=== PATIENT | male | born 1955 | race Caucasian/White ===

== ENCOUNTER → 2016-11-27 | Outpatient (CLI) | payer MEDICARE ==
[2016-11-27 12:05] LABS: ABSOLUTE BASOPHILS # (AUTO) 0.1 10^3/uL (0.0-0.2); ABSOLUTE EOSINOPHILS # (AUTO) 0.4 10^3/uL (0.0-0.6); ABSOLUTE LYMPHOCYTES (AUTO) 2.1 10^3/uL (0.5-4.7); ABSOLUTE MONOCYTES (AUTO) 0.7 10^3/uL (0.1-1.4); ABSOLUTE NEUT (AUTO) 7.2 10^3/uL (1.7-8.2); BASOPHILS % (AUTO) 0.6 % (0-2); EOSINOPHILS % (AUTO) 4.2 % (0-6); HEMATOCRIT 39.3 % (37.9-51.0); HEMOGLOBIN 12.5 g/dL (13.5-17.0); HGB HCT DIFFERENCE -1.8; LYMPHOCYTES % (AUTO) 20.2 % (13-45); MEAN CORPUSCULAR HEMOGLOBIN 28.7 pg (27.0-33.4); MEAN CORPUSCULAR HGB CONC 31.9 g/dL (32.0-36.0); MEAN CORPUSCULAR VOLUME 90 fl (80-97); RED BLOOD COUNT 4.37 10^6/uL (4.35-5.55); RED CELL DISTRIBUTION WIDTH 13.9 % (11.5-14.0); WHITE BLOOD COUNT 10.6 10^3/uL (4.0-10.5)
--- NOTE | 2016-11-27 12:12 | RADIOLOGY REPORT (SQ) ---
EXAM DESCRIPTION: FOOT RIGHT COMPLETE COMPLETED DATE/TIME: 11/27/2016 11:20 am REASON FOR STUDY: NON-PRS CHRONIC ULCER OTH PRT RIGHT FOOT W NECROSIS OF BONE E11.621 TYPE 2 DIABET ES MELLITUS WITH FOOT ULCER L97.514 NON-PRS CHRONIC ULCER OTH PRT RIGHT FOOT W NECROSIS COMPARISON: None. NUMBER OF VIEWS: Three views. TECHNIQUE: AP, lateral and oblique radiographic images acquired of the right foot. LIMITATIONS: None. FINDINGS: MINERALIZATION: Normal. BONES: There is bony defect in the distal 1st phalanx with the appearance of destruction of bone. Th e terminal tuft is from the more proximal portion of the distal phalanx. . JOINTS: No effusions. SOFT TISSUES: There is a soft tissue lesion in the great toe. OTHER: No other significant finding. IMPRESSION: Soft tissue lesion in the great toe with evidence of osteomyelitis. TECHNICAL DOCUMENTATION: JOB ID: [id number] [employer]- All Rights Reserved
[2016-11-27 12:34] LABS: ALANINE AMINOTRANSFERASE 58 U/L (21-72); ALBUMIN 4.1 g/dL (3.5-5.0); ALKALINE PHOSPHATASE 95 U/L (38-126); ANION GAP 15 (5-19); ASPARTATE AMINO TRANSFERASE 75 U/L (17-59); BILIRUBIN,DIRECT 0.4 mg/dL (0.0-0.4); BILIRUBIN,TOTAL 0.5 mg/dL (0.2-1.3); BLOOD UREA NITROGEN 27 mg/dL (7-20); C-REACTIVE PROTEIN 29.3 mg/L (<10.0); CARBON DIOXIDE 25 mmol/L (22-30); CHLORIDE 103 mmol/L (98-107); CREATININE RESULT 1.41 mg/dL (0.52-1.25); GLUCOSE 135 mg/dL (75-110); POTASSIUM 5.2 mmol/L (3.6-5.0); SODIUM 143.4 mmol/L (137-145); TOTAL PROTEIN 7.6 g/dL (6.3-8.2)
[2016-11-27 12:50] LABS: ERYTHROCYTE SEDIMENTATION RATE 84 mm/hr (0-20)
== END ==
LOC: WC 10:44
PROVIDERS: ATTEND Preventive Medicine Undersea and Hyperbaric Medicine
DX: E11.621 Type 2 diabetes mellitus with foot ulcer (principal); L97.514 Non-pressure chronic ulcer of other part of right foot with necrosis of bone
CPT/HCPCS: 36415; 80053; 83036; 85025; 85652; 86140

== ENCOUNTER → 2016-12-01 | Outpatient (CLI) | payer MEDICARE ==
--- NOTE | 2016-12-02 09:11 | XCELERA REPORT ---
[address] [address] Lower Extremity Arterial Evaluation Name: MARCOS JOSHI Age: 61 yrs Gender: Male : 1955 Patient Status: Outpatient Patient Location: Study Date: 12/01/2016 02:27 PM Procedure: A color flow and duplex scan of the lower extremity arteries was performed bilaterally with velocity and waveform anaylsis. Reason For Study: ULCER Ordering Physician: PHILLIP HARDY Performed By: Femi Zavala Measurements and Calculations Right Left PRECISION LENS GRINDER APPRENTICE PSV 150.2 138.3 cm/sec Prox PFA PSV -206.2 -96.8 cm/sec Dist SFA PSV -127.5 -124.3 cm/sec Dist Pop A PSV 132.7 110.3 cm/sec Dist GARRETT PSV 119.4 121.0 cm/sec Dist TRUCK SALES MANAGER PSV 166.0 138.3 cm/sec Moreno Pedis PSV 132.0 125.7 cm/sec Right Side Arterial Evaluation Normal velocity and triphasic waveforms noted from the Common Femoral artery to the infrageniculate vessels. 0 % stenosis noted. Ankle Brachial index was not obtainable, non compressible. Left Side Arterial Evaluation Normal velocity and triphasic waveforms noted from the Common Femoral artery to the infrageniculate vessels. 0 % stenosis noted. Ankle Brachial index was not obtainable, non compressible. Interpretation Summary No hemodynamically significant lesions in the bilateral lower extremities, on duplex imaging, at rest. Atherosclerosis suggested by the non compressible distal vessels. : PHILLIP HARDY > Jose Pope
== END ==
LOC: SP 13:47
PROVIDERS: ATTEND Preventive Medicine Undersea and Hyperbaric Medicine
DX: L97.514 Non-pressure chronic ulcer of other part of right foot with necrosis of bone (principal)
CPT/HCPCS: 93925

== ENCOUNTER → 2016-12-30 | Outpatient (CLI) | payer MEDICARE ==
--- NOTE | 2016-12-30 16:24 | RADIOLOGY REPORT (SQ) ---
EXAM DESCRIPTION: CHEST PA/LATERAL COMPLETED DATE/TIME: 12/30/2016 4:16 pm REASON FOR STUDY: ENCOUNTER FOR OTHER PREPROCEDURAL EXAMINATION COMPARISON: 05/28/2015 EXAM PARAMETERS: NUMBER OF VIEWS: two views TECHNIQUE: Digital Frontal and Lateral radiographic views of the chest acquired. RADIATION DOSE: NA LIMITATIONS: none FINDINGS: LUNGS AND PLEURA: There is opacification the left base stable from prior study. This is c onsistent with effusion and underlying chronic airspace disease. MEDIASTINUM AND HILAR STRUCTURES: No masses or contour abnormalities. HEART AND VASCULAR STRUCTURES: Heart normal size. No evidence for failure. BONES: No acute findings. HARDWARE: None in the chest. OTHER: No other significant finding. IMPRESSION: No interval change in the chest with chronic appearing changes in the left base. TECHNICAL DOCUMENTATION: JOB ID: [id number] [employer]- All Rights Reserved
== END ==
LOC: OD 15:50
PROVIDERS: ATTEND Preventive Medicine Undersea and Hyperbaric Medicine
DX: Z01.818 Encounter for other preprocedural examination (principal)
CPT/HCPCS: 71020

== ENCOUNTER → 2017-01-08 | Outpatient (CLI) | payer MEDICARE ==
--- NOTE | 2017-01-08 17:05 | RADIOLOGY REPORT (SQ) ---
EXAM DESCRIPTION: FOOT RIGHT COMPLETE COMPLETED DATE/TIME: 01/08/2017 4:56 pm REASON FOR STUDY: TYPE 2 DIABETES MELLITUS WITH FOOT ULCER E11.621 TYPE 2 DIABETES MELLITUS WITH FO OT ULCER COMPARISON: None. NUMBER OF VIEWS: Three views. TECHNIQUE: AP, lateral and oblique radiographic images acquired of the right foot. LIMITATIONS: None. FINDINGS: MINERALIZATION: Normal. BONES: No acute fracture or dislocation is seen. There are cortical erosions and lytic areas involvi ng the distal phalanx of the 1st digit suspicious for bony involvement by osteomyelitis. JOINTS: No effusions. SOFT TISSUES: Soft tissue swelling is identified at the level of the 1st digit. OTHER: No other significant finding. IMPRESSION: Findings suspicious for involvement of the distal phalanx of the 1st digit with osteomye litis. There is associated soft tissue swelling. Clinical correlation is recommended. Other findin gs as noted above TECHNICAL DOCUMENTATION: JOB ID: [id number] [employer]- All Rights Reserved
== END ==
LOC: OD 16:39
PROVIDERS: ATTEND Preventive Medicine Undersea and Hyperbaric Medicine
DX: E11.621 Type 2 diabetes mellitus with foot ulcer (principal); E11.69 Type 2 diabetes mellitus with other specified complication; M86.171 Other acute osteomyelitis, right ankle and foot

== ENCOUNTER → 2017-02-06 | Outpatient (CLI) | payer MEDICARE ==
--- NOTE | 2017-02-06 17:40 | RADIOLOGY REPORT (SQ) ---
EXAM DESCRIPTION: FOOT RIGHT COMPLETE COMPLETED DATE/TIME: 02/06/2017 3:12 pm REASON FOR STUDY: NON-PRS CHRONIC ULCER OTH PRT RIGHT FOOT W NECROSIS OF BONE COMPARISON: 01/08/2017 NUMBER OF VIEWS: Three views. TECHNIQUE: AP, lateral, and oblique radiographic images acquired of the right foot. LIMITATIONS: None. FINDINGS: MINERALIZATION: Normal. BONES: There is destruction of bone involving the distal phalanx of the great toe. There is not appe ar to be a significant interval change. JOINTS AND SOFT TISSUES: No swelling. No calcifications. No foreign bodies. OTHER: No other significant finding. IMPRESSION: Bone destruction involving the 1st distal phalanx, suggestive of osteomyelitis. TECHNICAL DOCUMENTATION: JOB ID: [id number] [employer]- All Rights Reserved
== END ==
LOC: OD 14:58
PROVIDERS: ATTEND Preventive Medicine Undersea and Hyperbaric Medicine
DX: E11.621 Type 2 diabetes mellitus with foot ulcer (principal); L97.514 Non-pressure chronic ulcer of other part of right foot with necrosis of bone

== ENCOUNTER → 2017-03-04 | Outpatient (CLI) | payer MEDICARE ==
--- NOTE | 2017-03-04 13:30 | RADIOLOGY REPORT (SQ) ---
EXAM DESCRIPTION: FOOT RIGHT COMPLETE COMPLETED DATE/TIME: 03/04/2017 12:54 pm REASON FOR STUDY: TYPE 2 DIABETES MELLITUS WITH FOOT ULCER E11.621 TYPE 2 DIABETES MELLITUS WITH FO OT ULCER COMPARISON: Right foot films 11/27/2016, 01/08/2017, 02/06/2017 NUMBER OF VIEWS: Three views. TECHNIQUE: AP, lateral and oblique radiographic images acquired of the right foot. LIMITATIONS: None. FINDINGS: Overall bone density is normal. Along the distal phalanx right great toe, there has been progressive increase in bone density since t he films 01/15/2019. On the current exam, there is periosteal new bone along the distal phalanx great toe, with minimal bony bridging callus at the fracture of the distal phalanx tuft. Stable resort jameson distal tuft 2nd toe. Remainder of the forefoot and toes is otherwise unremarkable . Small dorsal and plantar calcaneal spurs IMPRESSION: Improvement in appearance of the right great toe distal phalanx. There is now increase in bone density of the distal phalanx, periosteal new bone, and minimal bony bridging callus at the d istal phalanx tuft fracture. TECHNICAL DOCUMENTATION: JOB ID: [id number] [employer]- All Rights Reserved
== END ==
LOC: OD 12:29
PROVIDERS: ATTEND Nurse Practitioner Family
DX: E11.621 Type 2 diabetes mellitus with foot ulcer (principal)

== ENCOUNTER 2017-10-19 00:16 | Emergency (ER) | payer MEDICARE ==
[2017-10-19 00:51] LABS: ABSOLUTE EOSINOPHILS # (AUTO) 0.4 10^3/uL (0.0-0.6); ABSOLUTE LYMPHOCYTES (AUTO) 3.2 10^3/uL (0.5-4.7); ABSOLUTE MONOCYTES (AUTO) 0.9 10^3/uL (0.1-1.4); ABSOLUTE NEUT (AUTO) 6.2 10^3/uL (1.7-8.2); BASOPHILS % (AUTO) 0.4 % (0-2); EOSINOPHILS % (AUTO) 3.8 % (0-6); HEMATOCRIT 37.1 % (37.9-51.0); HEMOGLOBIN 12.3 g/dL (13.5-17.0); LYMPHOCYTES % (AUTO) 29.7 % (13-45); MEAN CORPUSCULAR HEMOGLOBIN 29.9 pg (27.0-33.4); MEAN CORPUSCULAR HGB CONC 33.3 g/dL (32.0-36.0); MEAN CORPUSCULAR VOLUME 90 fl (80-97); MONOCYTES % (AUTO) 8.5 % (3-13); PLATELET COUNT 331 10^3/uL (150-450); RED BLOOD COUNT 4.12 10^6/uL (4.35-5.55); RED CELL DISTRIBUTION WIDTH 14.5 % (11.5-14.0); SEGMENTED NEUTROPHILS % (AUTO) 57.6 % (42-78); TOTAL CELLS COUNTED % (AUTO) 100 %; WHITE BLOOD COUNT 10.7 10^3/uL (4.0-10.5)
--- NOTE | 2017-10-19 01:08 | ER Document Report ---
ED General - General TRAVEL OUTSIDE OF THE [place] IN LAST 30 DAYS: No <PAWAN CINTRON - Last Filed: 10/19/17 05:49> <BLAYNE PATINO - Last Filed: 10/19/17 10:45> <CARLYN SIMMS - Last Filed: 10/19/17 11:38> - General Chief Complaint: Low Blood Sugar Stated Complaint: L.OW BLOOD SUGAR Time Seen by Provider: 10/19/17 00:43 Notes: Patient is a 62-year-old male who presents with complaints of having poor control of rambling on in his conversation and also having difficulty ambulating and walking. He said symptoms for started about 3 days ago. Says typically he is very short this description thinks. He says for some reason he cannot control himself from rambling on and at times has a hard time being able to describe what he wants to say and just a few words. He denies any psychiatric history other than a history of some mild depression. No history of schizophrenia or bipolar angie. Patient also mentions that this time he has developed difficulty walking and ambulating and says that his gait is very unsteady. He has never had this problem before. He denies any pain. Denies any fevers. Paramedics initially thought maybe his blood sugar was low because his Accu-Chek was 68. They gave oral glucose. Blood sugar came up to over 100. Symptoms have remained the same. No other complaints at this time. ( PAWAN CINTRON) - Related Data Allergies/Adverse Reactions: Tetanus Vaccines and Toxoid [Tetanus] Allergy (Mild, Verified 12/07/12 12:16) rash,swelling Past Medical History - Social History Smoking Status: Unknown if Ever Smoked Frequency of alcohol use: None Drug Abuse: None Family History: CAD, DM Patient has suicidal ideation: No Patient has homicidal ideation: No - Past Medical History Cardiac Medical History: Reports: Hx Hypercholesterolemia, Hx Hypertension Denies: Hx Heart Attack Pulmonary Medical History: Denies: Hx Asthma Neurological Medical History: Denies: Hx Cerebrovascular Accident, Hx Seizures Endocrine Medical History: Reports: Hx Diabetes Mellitus Type 2 Renal/ Medical History: Denies: Hx Peritoneal Dialysis GI Medical History: Reports: Hx Gastroesophageal Reflux Disease. Denies: Hx Hepatitis, Hx Hiatal Hernia, Hx Ulcer Psychiatric Medical History: Reports: Hx Depression Infectious Medical History: Denies: Hx Hepatitis Past Surgical History: Reports: Hx Cardiac Surgery - stents 2014. Denies: Hx Open Heart Surgery, Hx Pacemaker <PAWAN CINTRON - Last Filed: 10/19/17 05:49> Review of Systems <PAWAN CINTRON - Last Filed: 10/19/17 05:49> <BLAYNE PATINO - Last Filed: 10/19/17 10:45> <CARLYN SIMMS - Last Filed: 10/19/17 11:38> - Review of Systems Notes: My Normal Review Basic REVIEW OF SYSTEMS: CONSTITUTIONAL : Denies fever, chills, or sweats. Denies recent illness. RESPIRATORY: Denies cough, cold, or chest congestion. Denies shortness of breath, difficulty breathing, or wheezing. Cardiac: No chest pain. GASTROINTESTINAL: Denies abdominal pain. Denies nausea, vomiting, or diarrhea. Denies constipation. Last BM: GENITOURINARY: Denies difficulty urinating, painful urination, burning, frequency, or blood in urine. MUSCULOSKELETAL: Denies neck or back pain or joint pain or swelling. SKIN: Denies rash or skin lesions. NEUROLOGICAL: Denies altered mental status or loss of consciousness. Denies headache. Denies weakness or paralysis or loss of use of either side. Difficulty ambulating.. Denies sensory or motor loss. PSYCHIATRIC: History of depression which she says is actually much improved from what it used to be. No history of schizophrenia or bipolar. ALL OTHER SYSTEMS REVIEWED AND NEGATIVE. (PAWAN CINTRON) Physical Exam <PAWAN CINTRON - Last Filed: 10/19/17 05:49> <BLAYNE PATINO - Last Filed: 10/19/17 10:45> <CARLYN SIMMS - Last Filed: 10/19/17 11:38> - Vital signs Vitals: Pulse Ox 93 10/19/17 00:23 - Notes Notes: General Appearance: Well nourished, alert, cooperative, no acute distress, no obvious discomfort. Vitals: reviewed, See vital signs table. Head: no swelling or tenderness to the head Eyes: PERRL, EOMI, Conjuctiva clear Mouth: No decreasd moisture Lungs: No wheezing, No rales, No rhonci, No accessory muscle use, good air exchange bilaterally. Heart: Normal rate, Regular rythm, No murmur, no rub Abdomen: Normal BS, soft, No rigidity, No abdominal tenderness, No guarding, no rebound, no abdominal masses, no organomegaly Extremities: strength 5/5 in all extremities, good pulses in all extremities, no swelling or tenderness in the extremities, no edema. Skin: warm, dry, appropriate color, no rash Neuro: speech clear, oriented x 3, normal affect, responds appropriately to questions. Patient does ramble on but does not say anything and appropriate. He has no slurring of speech. Cranial nerves II through XII are intact. Good strength in all 4 extremities. When I stand the patient walk his legs very shaky and his gait is staggered and shuffled. (PAWAN CINTRON) Course - Laboratory Result Diagrams: 10/19/17 00:32 10/19/17 00:32 <PAWAN CINTRON - Last Filed: 10/19/17 05:49> - Laboratory Result Diagrams: 10/19/17 00:32 10/19/17 00:32 <BLAYNE PATINO - Last Filed: 10/19/17 10:45> - Laboratory Result Diagrams: 10/19/17 00:32 10/19/17 00:32 <CARLYN SIMMS - Last Filed: 10/19/17 11:38> - Re-evaluation Re-evalutation: 10/19/17 04:09 Went back in room and spoke with the patient again. His gait is now normalized. He still having some flight of ideas. I was able to get a lot more information from the patient. I spoke to him for over 30 minutes. Patient says the symptoms are started Thursday. They started when he dog ran out of the house. [place] The dog ran out to the playground were some kids were playing. The kids asked him if he needed their help to get his dog back. When he did that a car pulled up and a 17-year-old pys-sijz-xgs out to the kids that the patient is a registered pedophile and that they should stay away from him. Patient became immediately very emotionally upset because patient has never been arrested and has no history of any type form of child abuse. He went to the 17-year-old male's house. There is a 17-year-old male said that he had seen his doctor before and pedal for website and would not take back what he said. Patient therefore called the deputy sheriff chief's department a deputy came. They be talked about the patient and 16- year-old male in proved to the 69-year-old male that the patient does not appear to follow and has no criminal record. The patient and the 69-year-old male was then supposed to go around the neighborhood and told us from neighbors that he was indeed wrong and that the patient is not appear to follow. It was dark by that time and therefore they scheduled to Thursday. On Thursday the xiejchx-gaba-znz male told the patient that he does not "give a fuck" and therefore did not go around and tell anybody about the mistake he had made in the false accusation have made. Since then patient says he has been very worried that everybody thinks now that he is a registered sex offender. Patient says he has been I am able to sleep and has been rambling and he has been not eating as much. Tonight his blood sugar went down to the 80s and therefore called the ambulance and then his blood sugar went down to the 60s before is given or glucose. Patient admits that this is because he has not been eating much. Patient is not suicidal homicidal. He says now understand what is going on. Patient is unsure if he wants to speak to psychiatry this morning. I will leave the patient alone and then reassessing. Patient has no focal neurologic deficits and I am not concerned for any form of stroke. ( PAWAN CINTRON) 10/19/17 11:37 Patient has been evaluated stable, he is in no distress, mental health has evaluated the patient as well and noted that he is appropriate for discharge After performing a Medical Screening Examination, I estimate there is LOW risk for any life threatening mental health issues. At this time the patient looks extremely well and has not attempted severe self harm. I have reevaluated this patient multiple times and no significant life threatening changes are noted. The patient and I have discussed the diagnosis and risks, and we agree with discharging home with close follow-up with the understanding that symptoms and presentations can change. We also discussed returning to the Emergency Department immediately if new or worsening symptoms occur. We have discussed the symptoms which are most concerning (hallucinations, thoughts or actions of self harm or harm to others) that necessitate immediate return. (CARLYN SIMMS) - Vital Signs Vital signs: Temp Pulse Resp BP Pulse Ox 98.4 F 17 128/78 H 96 10/19/17 00:36 10/19/17 08:01 10/19/17 08:00 10/19/17 07:01 - Laboratory Laboratory results interpreted by me: 10/19/17 10/19/17 10/19/17 00:32 00:32 03:12 WBC 10.7 H RBC 4.12 L Hgb 12.3 L Hct 37.1 L RDW 14.5 H Sodium 147.0 H BUN 37 H Creatinine 1.82 H Est GFR ( Amer) 46 L Est GFR (Non-Af Amer) 38 L Urine Ketones TRACE H Urine Urobilinogen 2.0 H - EKG Interpretation by Me Additional EKG results interpreted by me: 10/19/17 02:31 EKG is reviewed and interpreted by me. EKG shows sinus rhythm with rate of [address] segment elevation or depression. No ischemic T-wave inversions. OK interval, QRS duration, QTc intervals are within normal range. No old EKG available for comparison. (PAWAN CINTRON) Discharge <PAWAN CINTRON - Last Filed: 10/19/17 05:49> <BLAYNE PATINO - Last Filed: 10/19/17 10:45> <CARLYN SIMMS - Last Filed: 10/19/17 11:38> - Discharge Clinical Impression: Hypoglycemia, Situational anxiety Disposition: HOME, SELF-CARE Additional Instructions: Please try to make sure you eat. Please follow up with resources or appointments. Please return to the ER if you have any thoughts of suicide, low blood sugar, or feel unwell.Diabetes All diabetics should follow a diet designed to control the blood sugar. Overweight diabetics should exercise regularly and lose weight. If this is not sufficient to control the blood sugar, pills or insulin shots are necessary. Younger people who develop diabetes almost always require insulin daily. Home testing of blood sugars or urine sugar is required. Diabetic teaching is available to help you figure insulin doses and monitor the blood sugar. Call the physician if there is faintness, excess sleepiness, or very rapid breathing. If hypoglycemia (LOW blood sugar) develops, symptoms are shakiness, weakness, sweating, and confusion. In this case, you should eat or drink something with sugar at once. Follow up care: While in the Emergency Department you received a mental health assessment , based on the assessment it was determined the emotions/ symptoms you were experiencing were situational and not related to any psychiatric/ mental health diagnosis. However, if you are interested, local resources were provided for an outpatient therapists. Please follow up with your provider. Referrals: NEERAJ KUHN MD [Primary Care Provider] - Follow up as needed
[2017-10-19 01:16] LABS: ALANINE AMINOTRANSFERASE 45 U/L (21-72); ALBUMIN 4.4 g/dL (3.5-5.0); ALKALINE PHOSPHATASE 85 U/L (38-126); ANION GAP 18 (5-19); ASPARTATE AMINO TRANSFERASE 43 U/L (17-59); BILIRUBIN,DIRECT 0.4 mg/dL (0.0-0.4); BILIRUBIN,TOTAL 0.4 mg/dL (0.2-1.3); BLOOD UREA NITROGEN 37 mg/dL (7-20); CALCIUM 10.1 mg/dL (8.4-10.2); CARBON DIOXIDE 25 mmol/L (22-30); CHLORIDE 104 mmol/L (98-107); GLUCOSE 92 mg/dL (75-110); POTASSIUM 4.8 mmol/L (3.6-5.0); TOTAL PROTEIN 7.7 g/dL (6.3-8.2)
--- NOTE | 2017-10-19 02:15 | RADIOLOGY REPORT (SQ) ---
EXAM DESCRIPTION: CT HEAD WITHOUT CLINICAL HISTORY: 62 years Male, gait dysfunciton COMPARISON: 05.11.15 TECHNIQUE: No contrast. Coronal and sagittal reformat. This exam was performed according to our departmental dose-optimization program, which includes automated exposure control, adjustment of the mA and/or kV according to patient size and/or use of iterative reconstruction technique. FINDINGS: No hemorrhage or infarct. No mass, mass effect, or midline shift. Atherosclerosis. Brain and extra-axial structures appear otherwise intact. IMPRESSION: No acute findings.
--- NOTE | 2017-10-19 02:37 | RADIOLOGY REPORT (SQ) ---
EXAM DESCRIPTION: CHEST SINGLE VIEW CLINICAL HISTORY: 62 years Male, gait dysfunciton COMPARISON: 7..17. CT, 05/11/2015, report only. NUMBER OF VIEWS/TECHNIQUE: 1/AP FINDINGS: Adequate lung volume, moderate left basilar opacity-effusion, normal cardiac silhouette, and intact bony thorax. Stable. IMPRESSION: No significant change. Chronic left basilar opacity-effusion.
[2017-10-19 03:44] LABS: APPEARANCE,URINE CLEAR; BILIRUBIN,URINE NEGATIVE (NEGATIVE); COLOR,URINE YELLOW; GLUCOSE, URINE NEGATIVE (NEGATIVE); KETONES,URINE TRACE mg/dL (NEGATIVE); LEUKOCYTE ESTERASE,URINE NEGATIVE (NEGATIVE); NITRITE,URINE NEGATIVE (NEGATIVE); PROTEIN,URINE NEGATIVE (NEGATIVE); URINE SPECIFIC GRAVITY 1.014
[2017-10-19 04:09] LABS: URINE AMPHETAMINES SCREEN NEGATIVE; URINE BARBITURATES SCREEN NEGATIVE; URINE BENZODIAZEPINES SCREEN NEGATIVE; URINE COCAINE SCREEN NEGATIVE; URINE MARIJUANA (THC) SCREEN NEGATIVE; URINE METHADONE SCREEN NEGATIVE; URINE PHENCYCLIDINE SCREEN NEGATIVE
--- NOTE | 2017-10-19 10:01 | PSYCHOLOGICAL NOTE ---
Psych Note - Psych Note Psych Note: Reason for consult: Confusion " manic" Eval: 0945 Final Disposition 11:00 am Contact Permissions: Mari Kaur [phone] Patient is a 62 year old male. Patient reports he has type 2 diabetes, which he has had since he was 37 years old. Patient reports he skipped his insulin doses and felt that his blood sugar was really low. Patient reports he has not been good with managing his blood sugar. Patient reports that he is not eating well, drinking sodas and is not listening to what his physician recommends regarding nutrition. Patient reports he was feeling confused when his blood sugar was low so he called the ambulance. Patient reports he lives alone. Patient reports mental health has consent to speak with his sister Mari Kaur. Patient reports he has a good social support system in his neighborhood stating "old people live there". Patient reports he has friends that he regularly speaks with. Patient reports he feels that his rambling is due to his diabetes stating his blood sugar is low and he is confused he talks like that. Patient reports he is ready to go home. Patient reports he is going to try to not drink sodas and take care of his diabetes. Collateral information: Clinician attempted to contact patient's sister Mari for collateral information, she did not answer or return phone call. Diagnosis: None Impression/plan: Patient is psychiatrically cleared for discharge. Clinician observed patient's report of confusion and rambling were correlated with his health outcome, and not a psychiatric issue. Clinician observed patient is not displaying symptoms congruent with true angie. Clinician observed patient does not have history of mental health or outpatient treatment. At this time no other recommendations are made. Resources were offered but declined. Attending physician in agreement with plan. Consulted with Dr. Jara regarding the management and care of patient.
--- NOTE | 2017-10-19 10:08 | ER Document Report ---
Doctor's Note Notes: 10/19/17 10:07 As the rounding physician for our psychiatric patients, I have reviewed the chart, vitals, lab work. Patient has been examined and noted to be resting comfortably is alert oriented, I help ambulate him to the bathroom. I am awaiting mental health in put.
[2017-10-19 12:13] VITALS: BP 135/75
--- NOTE | 2017-10-19 13:00 | EKG REPORT ---
SEVERITY:- ABNORMAL ECG - SINUS RHYTHM CONSIDER ANTEROSEPTAL INFARCT : Confirmed by: Ny Mckeon 19-Oct-2017 12:59:27
== END 2017-10-19 12:13 | disposition home or self-care (01) ==
LOC: ER 00:16
DX: R26.2 Difficulty in walking, not elsewhere classified (principal); F41.8 Other specified anxiety disorders; E11.649 Type 2 diabetes mellitus with hypoglycemia without coma; E78.00 Pure hypercholesterolemia, unspecified; I10 Essential (primary) hypertension
CPT/HCPCS: 36415; 70450; 71045; 80053; 80307; 81001; 82962; 84484; 85025; 93005; 93010; 99285

== ENCOUNTER 2017-11-01 17:13 | Emergency (ER) | payer MEDICARE ==
[2017-11-01 17:59] LABS: VENOUS BLOOD BASE EXCESS -1.9 mmol/L; VENOUS BLOOD HCO3 23.6 mmol/L (20-32); VENOUS BLOOD PCO2 42.6 mmHg (35-63); VENOUS BLOOD PH 7.36 (7.30-7.42)
[2017-11-01 18:00] LABS: ABSOLUTE EOSINOPHILS # (AUTO) 0.3 10^3/uL (0.0-0.6); ABSOLUTE MONOCYTES (AUTO) 0.9 10^3/uL (0.1-1.4); ABSOLUTE NEUT (AUTO) 5.9 10^3/uL (1.7-8.2); BASOPHILS % (AUTO) 0.5 % (0-2); HEMATOCRIT 42.6 % (37.9-51.0); HEMOGLOBIN 14.2 g/dL (13.5-17.0); LYMPHOCYTES % (AUTO) 29.4 % (13-45); MEAN CORPUSCULAR HEMOGLOBIN 30.1 pg (27.0-33.4); MEAN CORPUSCULAR HGB CONC 33.3 g/dL (32.0-36.0); MEAN CORPUSCULAR VOLUME 90 fl (80-97); PLATELET COUNT 323 10^3/uL (150-450); RED BLOOD COUNT 4.72 10^6/uL (4.35-5.55); RED CELL DISTRIBUTION WIDTH 14.5 % (11.5-14.0); SEGMENTED NEUTROPHILS % (AUTO) 58.1 % (42-78); TOTAL CELLS COUNTED % (AUTO) 100 %; WHITE BLOOD COUNT 10.2 10^3/uL (4.0-10.5)
--- NOTE | 2017-11-01 18:01 | RADIOLOGY REPORT (SQ) ---
EXAM DESCRIPTION: CHEST SINGLE VIEW COMPLETED DATE/TIME: 11/01/2017 5:53 pm REASON FOR STUDY: ms change COMPARISON: 10/19/2017 EXAM PARAMETERS: NUMBER OF VIEWS: One view. TECHNIQUE: Single frontal radiographic view of the chest acquired. RADIATION DOSE: NA LIMITATIONS: None. FINDINGS: LUNGS AND PLEURA: Bibasilar effusions and left basilar opacity. Stable. No pneumothorax. MEDIASTINUM AND HILAR STRUCTURES: No masses. Contour normal. HEART AND VASCULAR STRUCTURES: Heart enlarged without overt failure. BONES: No acute findings. HARDWARE: None in the chest. OTHER: No other significant finding. IMPRESSION: Stable appearance. Bowel lateral effusions with left basilar opacity. Enlarged heart. TECHNICAL DOCUMENTATION: JOB ID: [id number] [employer]- All Rights Reserved Reading location - IP/workstation name: [email or web address]
[2017-11-01 18:16] LABS: ALANINE AMINOTRANSFERASE 31 U/L (21-72); ALBUMIN 4.7 g/dL (3.5-5.0); ALKALINE PHOSPHATASE 100 U/L (38-126); ANION GAP 17 (5-19); ASPARTATE AMINO TRANSFERASE 21 U/L (17-59); BILIRUBIN,DIRECT 0.4 mg/dL (0.0-0.4); BILIRUBIN,TOTAL 0.4 mg/dL (0.2-1.3); BLOOD UREA NITROGEN 47 mg/dL (7-20); CALCIUM 10.3 mg/dL (8.4-10.2); CARBON DIOXIDE 24 mmol/L (22-30); CHLORIDE 101 mmol/L (98-107); CREATINE KINASE 58 U/L (55-170); GLUCOSE 218 mg/dL (75-110); POTASSIUM 5.3 mmol/L (3.6-5.0); SODIUM 141.8 mmol/L (137-145); TOTAL PROTEIN 8.1 g/dL (6.3-8.2)
--- NOTE | 2017-11-01 18:16 | RADIOLOGY REPORT (SQ) ---
EXAM DESCRIPTION: CT HEAD WITHOUT COMPLETED DATE/TIME: 11/01/2017 6:00 pm REASON FOR STUDY: ms change COMPARISON: Noncontrast CT head 10/19/2017 TECHNIQUE: Axial images acquired through the brain without intravenous contrast. Images reviewed wi th bone, brain and subdural windows. Images stored on PACS. All CT scanners at this facility use dose modulation, iterative reconstruction, and/or weight based d osing when appropriate to reduce radiation dose to as low as reasonably achievable (ALARA). [facility]: Dose Right [facility]: CareDose [facility]: Dose Right [facility]: Teradose 4D [facility]: LOCK8 RADIATION DOSE: mGy. LIMITATIONS: None. FINDINGS: VENTRICLES: Normal size and contour. CEREBRUM: No mass effect. No hemorrhage. No midline shift. Normal herrera/white matter differentiatio n. No evidence for acute territorial infarction. CEREBELLUM: No mass effect. No hemorrhage. No alteration of density. No evidence for acute infarct ion. EXTRAAXIAL SPACES: No fluid collections. ORBITS AND GLOBE: Symmetrical contour of the globes. CALVARIUM: No depressed skull fracture. PARANASAL SINUSES: No air-fluid level. SOFT TISSUES: No hematoma. IMPRESSION: No acute intracranial hemorrhage or acute territorial infarct. EVIDENCE OF ACUTE STROKE: NO. COMMENT: Quality ID # [id number]: Final reports with documentation of one or more dose reduction techniques (e.g., Automated exposure control, adjustment of the mA and/or kV according to patient size, use of iterative reconstruction technique) TECHNICAL DOCUMENTATION: JOB ID: [id number]-[email or web address] 2010 [employer]- All Rights Reserved Reading location - IP/workstation name: [email or web address]
--- NOTE | 2017-11-01 18:22 | ER Document Report ---
ED General - General Chief Complaint: Altered Mental Status Stated Complaint: UNRESPONSIVE Time Seen by Provider: 11/01/17 17:29 Mode of Arrival: Ambulatory Information source: Patient, Relative - sister TRAVEL OUTSIDE OF THE [place] IN LAST 30 DAYS: No - HPI Patient complains to provider of: Mental status change Onset: Just prior to arrival Onset/Duration: Gradual Quality of pain: No pain Notes: Most of the history is by the patient's sister as the patient is not talking at this time. The sister states that the patient lives alone did pick him up for protestant this morning. She states that he was quiet at protestant which is not his usual state. She states that after protestant they did run a few errands and he basically just stopped talking. She denies that he had any weakness in his face slurred speech inability to move his arms or legs. She states that he just would not move. So she drove him here for evaluation. The patient did stand up to transfer into the bed. Was recently seen here for the same thing and was seen by psychiatry. It was determined at that point that it was probably due to his hypoglycemic event. Patient sister does state that the patient is undergoing a lot of stressful issues currently. - Related Data Allergies/Adverse Reactions: Tetanus Vaccines and Toxoid [Tetanus] Allergy (Mild, Verified 12/07/12 12:16) rash,swelling Past Medical History - General Information source: [facility] Records - Social History Smoking Status: Unknown if Ever Smoked Drug Abuse: None Lives with: Family Family History: CAD, DM Patient has suicidal ideation: No Patient has homicidal ideation: No - Past Medical History Cardiac Medical History: Reports: Hx Hypercholesterolemia, Hx Hypertension Denies: Hx Heart Attack Pulmonary Medical History: Reports: None Denies: Hx Asthma Neurological Medical History: Denies: Hx Cerebrovascular Accident, Hx Seizures Endocrine Medical History: Reports: Hx Diabetes Mellitus Type 2 Renal/ Medical History: Denies: Hx Peritoneal Dialysis Malignancy Medical History: Reports None GI Medical History: Reports: Hx Gastroesophageal Reflux Disease. Denies: Hx Hepatitis, Hx Hiatal Hernia, Hx Ulcer Psychiatric Medical History: Reports: Hx Depression Infectious Medical History: Denies: Hx Hepatitis Past Surgical History: Reports: Hx Cardiac Surgery - stents 2013. Denies: Hx Open Heart Surgery, Hx Pacemaker Review of Systems - Review of Systems -: Yes ROS unobtainable due to patient's medical condition Physical Exam - Vital signs Vitals: Resp Pulse Ox 20 99 05/13/18 17:29 11/01/17 17:29 - Notes Notes: PHYSICAL EXAMINATION: GENERAL: Lying in bed his eyes closed in no apparent distress. HEAD: Atraumatic, normocephalic. EYES: Pupils equal round and reactive to light, extraocular movements intact, sclera anicteric, conjunctiva are normal. Warm voluntarily open his eyes sporadically but not with verbal command. ENT: Nares patent. Moist mucous membranes. NECK: Normal range of motion, supple without lymphadenopathy LUNGS: Breath sounds clear to auscultation bilaterally and equal. No wheezes rales or rhonchi. HEART: Regular rate and rhythm without murmurs ABDOMEN: Soft, nontender, nondistended abdomen. No guarding, no rebound. No masses appreciated. Musculoskeletal: Normal range of motion, no pitting or edema. No cyanosis. When you lift the patient's arms up and placed them over his head he holds it there so it does not fall into his face area. NEUROLOGICAL: Gross focal deficits. PSYCH: Unable to assess at this time SKIN: Warm, Dry, normal turgor, no rashes or lesions noted. Course - Re-evaluation Re-evalutation: 11/01/17 19:46 Go back in the room and talk to the patient again. His vital signs are stable. He will not open his eyes but he does nod when I talk to him. I did tell him that all his lab tests and diagnostic studies look fine will be have a psychiatrist see him. Patient did not when I told him that. I did again lift his arms over his head and he did not drop them he moves them casually to his side and put them down. Assist to be sent to the lab. Nurse is aware and she will cath the patient. - Vital Signs Vital signs: Temp Pulse Resp BP Pulse Ox 98.7 F 64 16 135/79 H 98 11/01/17 17:42 11/01/17 21:00 11/01/17 22:31 11/01/17 22:31 11/01/17 22:31 - Laboratory Result Diagrams: 11/01/17 17:35 11/01/17 17:35 Laboratory results interpreted by me: 11/01/17 11/01/17 11/01/17 17:35 17:35 20:04 RDW 14.5 H Potassium 5.3 H BUN 47 H Creatinine 2.04 H Est GFR ( Amer) 40 L Est GFR (Non-Af Amer) 33 L Glucose 218 H POC Glucose Calcium 10.3 H Urine Glucose (UA) 50 H Urine Urobilinogen 4.0 H 11/01/17 20:55 RDW Potassium BUN Creatinine Est GFR ( Amer) Est GFR (Non-Af Amer) Glucose POC Glucose 148 H Calcium Urine Glucose (UA) Urine Urobilinogen Discharge - Discharge Clinical Impression: Mild dehydration, Change in mental status Condition: Stable Disposition: PSYCH HOSP/UNIT Referrals: NEERAJ CHRISTIAN MD [Primary Care Provider] - Follow up as needed
[2017-11-01] MEDS ORDERED: NORMAL SALINE 1000 ML 1,000 ML IV ONE (19:05)
[2017-11-01 20:26] LABS: APPEARANCE,URINE SLIGHTLY-CLOUDY; BILIRUBIN,URINE NEGATIVE (NEGATIVE); COLOR,URINE YELLOW; GLUCOSE, URINE 50 mg/dL (NEGATIVE); KETONES,URINE NEGATIVE (NEGATIVE); LEUKOCYTE ESTERASE,URINE NEGATIVE (NEGATIVE); NITRITE,URINE NEGATIVE (NEGATIVE); PROTEIN,URINE NEGATIVE (NEGATIVE); URINE SPECIFIC GRAVITY 1.015
[2017-11-01 20:40] LABS: URINE AMPHETAMINES SCREEN NEGATIVE; URINE BARBITURATES SCREEN NEGATIVE; URINE BENZODIAZEPINES SCREEN NEGATIVE; URINE COCAINE SCREEN NEGATIVE; URINE MARIJUANA (THC) SCREEN NEGATIVE; URINE METHADONE SCREEN NEGATIVE; URINE PHENCYCLIDINE SCREEN NEGATIVE
--- NOTE | 2017-11-01 22:10 | EKG REPORT ---
SEVERITY:- BORDERLINE ECG - SINUS RHYTHM BORDERLINE RIGHT AXIS DEVIATION BORDERLINE T WAVE ABNORMALITIES : Confirmed by: Bo Saunders MD 01-Nov-2017 22:08:50
--- NOTE | 2017-11-02 09:23 | ER Document Report ---
Doctor's Note Notes: 11/02/17 09:22 This is a 62-year-old man with a history of diabetes, hypertension, chronic kidney disease, coronary artery disease (stents), depression. Patient was brought into the emergency room by sister for evaluation because of decreased interactiveness. The patient's sister did report that the patient has been under a lot of stress lately. Vital signs have been stable. Labs do show some chronic kidney disease which is been noted to have in the past. Patient is alert and conversant this morning. He has been evaluated by the psychology team. 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 He actually has been conversant and does not appear catatonic at this time. He does have psychiatric follow-up. 11/02/17 10:28 11/02/17 13:17
[2017-11-02 13:29] VITALS: BP 132/77
--- NOTE | 2017-11-03 16:53 | PSYCHOLOGICAL NOTE ---
Psych Note - Psych Note Psych Note: Reason for consult: Depression Contact Permissions: Clarissa Kaur [id number] Eval: [id number] Final Disposition: 10:00 am Patient is a 62-year-old male. Patient reports that his sister was worried about him because he was not talking after gnosticist. Patient reports that on a scale of 1 through 10 , with 10 being "things are better" he is currently at a 10 ; this solution focused scale was used to rate how he was feeling since he was discharged last week. Patient states that he is at a 10 because "I am happy with my life". Patient reports that he likes everything about where he lives, the people he associates with, and his Pomeranian named Magic. Patient reports "I can take care of myself". Patient reports that he wants to live but if anything that he needs help with is just making sure his cat is fed as his sister currently has his Pomeranian. Patient reports that he stayed at the hospital because his sister asked him to. Patient reports that his therapist is Shruti at the [facility] at [facility]. Patient reports he went to gnosticist with his other siblings and when they went to eat he just did not feel like talking. Patient reports his house is a mess because he has been "lazy". Patient reports he does not like to throw away things. Patient reports he is having trouble remembering things. When patient's sister Clarissa arrived clinician observed patient's sister was frustrated due to not wanting to be discharged because she feels he needs to go to an assisted living facility. Clinician observed patient told his sister he was willing to go to a facility and willing to stay at her house until he could go. Clinician observed patient was more forthcoming after going into his room several times and facilitating a conversation as to why he presents differently to his sister then to clinician. Patient reported "I do not know". Collateral Information: Patient's sister Clarissa Kaur ( present in room) Patient's sister reports she does not feel patient could be discharged because he is catatonic. Patient's sister reports that he was fine before going to gnosticist talking regularly but that after the sermon just would not talk to her. Patient's sister reports that she feels his depression is not being properly managed. Patient's sister reports that she wants him to go to an inpatient psych hospital or an assisted living facility somewhere where people can help him remember to shower and eat. Patient's sister reports she does not feel he has eaten in several days since he was discharged from the hospital on Thursday. Patient's sister reports that she is going to take patient home with her until she is able to get him into an assisted living facility because she does think that it is a possibility that he is lonely and just does not want to say it. Diagnosis: Per History ( patient report) 311 (F32.9) Unspecified Depressive Disorder Impression/Plan: Recommendation to rescind involuntary commitment due to patient not meeting criteria VA GS 122C. Patient denied HI/SI and is currently participating in assessment in an appropriate logical/linear/oriented way. Clinician observed patient is presenting differently to different staff members , patient's nurse contacted clinician and explained patient could not preform his ADL's ( showering) and needed assistance being directed to shower; patient' s nurse stated patient was giving one word responses "yes" or " no" however patient was able to further elaborate to clinician when he chose to. Clinician provided resources to patient and his sister, patient declined clinician making an appointment for a outpatient therapist. Patient explained he wanted to continue to see his primary care, clinician scheduled an appointment with his PCM for follow up. Mental health casework specialist coordinated with corporate planner to request them providing resources and information regarding getting him into an assisted living facility. Attending physician in agreement with disposition and plan. Consulted with Dr. Jara regarding the management and care of patient.
== END 2017-11-02 13:30 | disposition home or self-care (01) ==
LOC: ER 17:13
DX: E86.0 Dehydration (principal); F32.9 Major depressive disorder, single episode, unspecified; R41.82 Altered mental status, unspecified; E78.00 Pure hypercholesterolemia, unspecified; E11.22 Type 2 diabetes mellitus with diabetic chronic kidney disease; I12.9 Hypertensive chronic kidney disease with stage 1 through stage 4 chronic kidney disease, or unspecified chronic kidney disease; N18.9 Chronic kidney disease, unspecified
CPT/HCPCS: 93005; 99285; 96360; 51701; 36415; 82962; 82550; 83735; 85025; 80053; 81001; 84484; 80307; 82803; 83605; 71045; 70450; 93010; J7030

== ENCOUNTER 2017-12-06 13:03 | Inpatient (IN) | payer MEDICARE ==
[2017-12-06] MEDS: NORMAL SALINE 1000 ML 1,000 ML IV PRN ×2 (13:10→13:15)
--- NOTE | 2017-12-06 13:29 | ER Document Report ---
ED General - General Stated Complaint: SYNCOPE Time Seen by Provider: 12/06/17 13:26 Notes: Patient was brought in by EMS after he had a fall at a local store. Patient says he drove to the store and got out of his car and felt lightheaded and was witnessed to fall to the ground. He supposedly hit his head on the car, but the patient denies any pain or indications of hitting his head. His blood pressure was 53/42 at the scene when EMS arrived. Family witnessed the episode and there was no seizure activity. Patient is an insulin-dependent diabetic and his blood sugar has been running high for some time now. He vomited an orange colored emesis. Patient had a orange colored drink this morning. EMS reports that the patient has had several episodes like this before that they have responded to it home and found him to be hypotensive, but he has declined to come to the emergency department. Patient says the only thing new for him is pains in his legs, but he says he has had it for over a month and he thinks is due to his diabetes. He is an insulin-dependent diabetic. He received 750 mL of saline while in route here by EMS. Patient denies any chest pains. Denies abdominal pain. Denies any difficulty breathing or shortness of breath. Denies any UTI symptoms. Denies any fever. Patient has a history of high blood pressure, high cholesterol, GERD, and insulin-dependent diabetes. TRAVEL OUTSIDE OF THE [place] IN LAST 30 DAYS: No - Related Data Allergies/Adverse Reactions: Tetanus Vaccines and Toxoid [Tetanus] Allergy (Mild, Verified 12/07/12 12:16) rash,swelling Past Medical History - Social History Smoking Status: Unknown if Ever Smoked Family History: Reviewed & Not Pertinent, CAD, DM - Past Medical History Cardiac Medical History: Reports: Hx Hypercholesterolemia, Hx Hypertension Endocrine Medical History: Reports: Hx Diabetes Mellitus Type 1, Hx Diabetes Mellitus Type 2 GI Medical History: Reports: Hx Gastroesophageal Reflux Disease Psychiatric Medical History: Reports: Hx Depression Past Surgical History: Reports: Hx Cardiac Surgery - stents 2014 Review of Systems - Review of Systems Notes: REVIEW OF SYSTEMS: CONSTITUTIONAL : Denies fever. EENT: Denies eye, ear, nose or mouth or throat pain or other symptoms. CARDIOVASCULAR: Denies chest pain. RESPIRATORY: Denies cough, chest congestion, or shortness of breath. GASTROINTESTINAL: Denies abdominal pain or nausea, vomiting, or diarrhea. GENITOURINARY: Denies difficulty or painful urinating, urinary frequency, blood in urine. MUSCULOSKELETAL: Denies back or neck pain. Denies joint pain or swelling. SKIN: Denies rash or skin lesions. NEUROLOGICAL: See HPI. Patient says he had no LOC or altered mental status. Denies headache. Denies sensory loss or motor deficits. ALL OTHER SYSTEMS REVIEWED AND NEGATIVE. Physical Exam - Vital signs Vitals: Resp BP 25 H 65/40 L 12/06/17 13:09 12/06/17 13:09 Interpretation: Hypotensive - Notes Notes: PHYSICAL EXAMINATION: GENERAL: Well-appearing, in no acute distress. Blood pressure in the 60s systolic upon arrival. Blood pressure was in the 50s systolic at the scene. HEAD: Atraumatic, normocephalic. EYES: Pupils equal round and reactive to light, extraocular movements intact. ENT: oropharynx clear without exudates. Moist mucous membranes. NECK: Normal range of motion, supple. LUNGS: Breath sounds clear and equal bilaterally. HEART: Regular rate and rhythm without murmurs. ABDOMEN: Soft, nontender. No guarding or rebound. No masses. No bruits heard. BACK: No tenderness throughout entire back. EXTREMITIES: Normal range of motion without pain. NEUROLOGICAL: Normal speech, unable to stand or walk. Normal sensory, motor, and reflex exams. Awake, alert, and oriented x3. Cranial nerves normal. PSYCH: Normal mood, normal affect. SKIN: Warm, dry, no rashes. Course - Re-evaluation Re-evalutation: 12/06/17 19:55 Patient received 3 L of saline here in the emergency department and his blood pressure gradually trended upward to the systolic of about 90. Insulin drip at 5 U/h was started in the emergency department. Contacted hospitalist who will admit the patient to ICU. - Vital Signs Vital signs: Temp Pulse Resp BP Pulse Ox 97.2 F 70 22 H 94/59 L 100 12/06/17 19:28 12/06/17 17:55 12/06/17 18:05 12/06/17 18:05 12/06/17 18:05 - Laboratory Result Diagrams: 12/06/17 12:50 12/06/17 17:30 Laboratory results interpreted by me: 12/06/17 12/06/17 12/06/17 12:50 12:50 14:10 RBC 4.24 L Hgb 12.7 L Sodium 129.1 L Chloride 82 L Anion Gap 21 H BUN 75 H Creatinine 4.00 H Est GFR ( Amer) 18 L Est GFR (Non-Af Amer) 15 L Glucose 843 H* Direct Bilirubin 0.5 H Creatine Kinase 54 L Urine Glucose (UA) >=500 H Critical Care Note - Critical Care Note Total time excluding time spent on procedures (mins): 45 Discharge - Discharge Clinical Impression: Near syncope, Hyperglycemia, Dehydration, Renal insufficiency Condition: Stable Disposition: ADMITTED INPATIENT Admitting Provider: Hospitalist Unit Admitted: ICU
[2017-12-06 13:48] LABS: ABSOLUTE EOSINOPHILS # (AUTO) 0.2 10^3/uL (0.0-0.6); ABSOLUTE LYMPHOCYTES (AUTO) 2.2 10^3/uL (0.5-4.7); ABSOLUTE MONOCYTES (AUTO) 0.8 10^3/uL (0.1-1.4); ABSOLUTE NEUT (AUTO) 6.3 10^3/uL (1.7-8.2); BASOPHILS % (AUTO) 0.4 % (0-2); EOSINOPHILS % (AUTO) 1.6 % (0-6); HEMATOCRIT 39.1 % (37.9-51.0); HEMOGLOBIN 12.7 g/dL (13.5-17.0); LYMPHOCYTES % (AUTO) 23.3 % (13-45); MEAN CORPUSCULAR HEMOGLOBIN 29.9 pg (27.0-33.4); MEAN CORPUSCULAR HGB CONC 32.4 g/dL (32.0-36.0); MEAN CORPUSCULAR VOLUME 92 fl (80-97); MONOCYTES % (AUTO) 8.2 % (3-13); PLATELET COUNT 315 10^3/uL (150-450); RED BLOOD COUNT 4.24 10^6/uL (4.35-5.55); RED CELL DISTRIBUTION WIDTH 13.7 % (11.5-14.0); SEGMENTED NEUTROPHILS % (AUTO) 66.5 % (42-78); TOTAL CELLS COUNTED % (AUTO) 100 %; WHITE BLOOD COUNT 9.4 10^3/uL (4.0-10.5)
[2017-12-06 13:51] LABS: INTERNATIONAL RATION (INR) 0.94; PROTHROMBIN TIME 13.1 SEC (11.4-15.4)
[2017-12-06 13:55] LABS: ALANINE AMINOTRANSFERASE 36 U/L (21-72); ALKALINE PHOSPHATASE 116 U/L (38-126); ASPARTATE AMINO TRANSFERASE 27 U/L (17-59); BILIRUBIN,DIRECT 0.5 mg/dL (0.0-0.4); BILIRUBIN,TOTAL 0.5 mg/dL (0.2-1.3); BLOOD UREA NITROGEN 75 mg/dL (7-20); CALCIUM 9.2 mg/dL (8.4-10.2); CREATINE KINASE 54 U/L (55-170); TOTAL PROTEIN 6.9 g/dL (6.3-8.2)
[2017-12-06 14:00] LABS: CARBON DIOXIDE 26 mmol/L (22-30); CHLORIDE 82 mmol/L (98-107); SODIUM 129.1 mmol/L (137-145)
[2017-12-06 14:05] LABS: CREATINE KINASE MB 1.11 ng/mL (<4.55); TROPONIN I 0.012 ng/mL
[2017-12-06 14:06] LABS: ANION GAP 21 (5-19)
[2017-12-06 14:09] LABS: GLUCOSE 843 mg/dL (75-110)
--- NOTE | 2017-12-06 14:15 | RADIOLOGY REPORT (SQ) ---
EXAM DESCRIPTION: CHEST SINGLE VIEW COMPLETED DATE/TIME: 12/06/2017 1:47 pm REASON FOR STUDY: Near syncope COMPARISON: Chest films 07/29/2014, 12/30/2016, 10/19/2017, 11/01/2017 EXAM PARAMETERS: NUMBER OF VIEWS: One view. TECHNIQUE: Single frontal radiographic view of the chest acquired. RADIATION DOSE: NA LIMITATIONS: [employer] portable chest film, obese patient FINDINGS: LUNGS AND PLEURA: Chronic blunting of the left lateral costophrenic sulcus is present, unc hanged from prior studies likely chronic scarring. Remainder of the lungs are grossly clear. No pleural effusion or pneumothorax. MEDIASTINUM AND HILAR STRUCTURES: No masses. Contour normal. HEART AND VASCULAR STRUCTURES: Stable moderate cardiomegaly BONES: No acute findings. HARDWARE: None in the chest. OTHER: No other significant finding. IMPRESSION: Chronic blunting left lateral costophrenic sulcus with chronic appearing consolidation i n the lateral left lung base. TECHNICAL DOCUMENTATION: JOB ID: [id number] [employer]- All Rights Reserved Reading location - IP/workstation name: [email or web address]
[2017-12-06] MEDS ORDERED: INSULIN REG, HUMAN 100 UNIT/ML 3 ML VIAL (PYX) ONE (14:16)
[2017-12-06] MEDS ORDERED: INSULIN REG, HUMAN 100 UNIT/ML 3 ML VIAL (PYX) IV ONE (14:25)
[2017-12-06 14:48] LABS: APPEARANCE,URINE SLIGHTLY-CLOUDY; BILIRUBIN,URINE NEGATIVE (NEGATIVE); COLOR,URINE YELLOW; GLUCOSE, URINE >=500 mg/dL (NEGATIVE); KETONES,URINE NEGATIVE (NEGATIVE); LEUKOCYTE ESTERASE,URINE NEGATIVE (NEGATIVE); NITRITE,URINE NEGATIVE (NEGATIVE); PROTEIN,URINE NEGATIVE (NEGATIVE); URINE SPECIFIC GRAVITY 1.018; UROBILINOGEN,URINE NEGATIVE mg/dL (<2.0)
[2017-12-06] MEDS ORDERED: NORMAL SALINE 1000 ML 1,000 ML IV ONE ×2 (15:20→16:29)
--- NOTE | 2017-12-06 15:51 | EKG REPORT ---
SEVERITY:- ABNORMAL ECG - SINUS RHYTHM WITH PACS FIRST DEGREE AV BLOCK LEFT POSTERIOR FASCICULAR BLOCK ABNRM R PROG, CONSIDER ASMI OR LEAD PLACEMENT NONSPECIFIC T ABNORMALITIES, LATERAL LEADS : Confirmed by: Bo Saunders MD 06-Dec-2017 15:50:11
[2017-12-06] MEDS ORDERED: DEXTROSE 50%-WATER 25 GM/50 ML DISP.SYRIN IV PRN ×2 (16:20)
[2017-12-06] MEDS ORDERED: DEXTROSE 40% GEL 15 GM TUBE PO PRN ×2 (16:20)
[2017-12-06] MEDS ORDERED: ACETAMINOPHEN 325 MG TABLET PO PRN (16:20)
[2017-12-06] MEDS ORDERED: ONDANSETRON 4 MG TAB.RAPDIS PO PRN (16:20)
[2017-12-06] MEDS ORDERED: NORMAL SALINE 1000 ML 1,000 ML IV PRN ×2 (16:20→18:22)
[2017-12-06] MEDS ORDERED: GLUCAGON,HUMAN RECOMB 1 MG INJ SUBCUT PRN (16:20)
--- NOTE | 2017-12-06 17:00 | RADIOLOGY REPORT (SQ) ---
EXAM DESCRIPTION: CT HEAD WITHOUT COMPLETED DATE/TIME: 12/06/2017 4:50 pm REASON FOR STUDY: head trauma COMPARISON: 11/01/2017. TECHNIQUE: Axial images acquired through the brain without intravenous contrast. Images reviewed wi th bone, brain and subdural windows. 11/01/2017. Images stored on PACS. All CT scanners at this facility use dose modulation, iterative reconstruction, and/or weight based d osing when appropriate to reduce radiation dose to as low as reasonably achievable (ALARA). [facility]: Dose Right [facility]: CareDose [facility]: Dose Right [facility]: Teradose 4D [facility]: Smart [employer] Software RADIATION DOSE: CT Rad equipment meets quality standard of care and radiation dose reduction techniq ues were employed. CTDIvol: 53.2 mGy. DLP: 1044 mGy-cm. mGy. LIMITATIONS: None. FINDINGS: VENTRICLES: Normal size and contour. CEREBRUM: No masses. No hemorrhage. No midline shift. No evidence for acute infarction. Normal gra y/white matter differentiation. No areas of low density in the white matter. CEREBELLUM: No masses. No hemorrhage. No alteration of density. No evidence for acute infarction. EXTRAAXIAL SPACES: No fluid collections. No masses. ORBITS AND GLOBE: No intra- or extraconal masses. Normal contour of globe without masses. CALVARIUM: No fracture. PARANASAL SINUSES: No fluid or mucosal thickening. SOFT TISSUES: No mass or hematoma. OTHER: No other significant finding. IMPRESSION: NORMAL BRAIN CT WITHOUT CONTRAST. EVIDENCE OF ACUTE STROKE: NO. COMMENT: Quality ID # [id number]: Final reports with documentation of one or more dose reduction techniques (e.g., Automated exposure control, adjustment of the mA and/or kV according to patient size, use of iterative reconstruction technique) TECHNICAL DOCUMENTATION: JOB ID: [id number] [employer]- All Rights Reserved Reading location - IP/workstation name: [email or web address]
--- NOTE | 2017-12-06 17:43 | PDOC H&P ---
History of Present Illness Admission Date/PCP: 12/06/17 15:29 NEERAJ CHRISTIAN MD Patient complains of: FALL History of Present Illness: MARCOS JOSHI is a 62 year old male who presents to the emergency department following a mechanical fall while getting out of his car. The patient reports he drove to the grocery store and when getting out of his vehicle he fell and hit his head on the car door. He denies loss of consciousness. Following the fall the patient had a witnessed episode of vomiting 1. A good uatsdin witnessed the event and called EMS. Upon their arrival to the scene, the patient was awake and talking but his BP was ~55/42. He was very pale and diaphoretic. BG reading 'high.' And route to [facility], the patient received 750mL IVF. PMH includes diabetes, unknown lung disease, CHF, CAD, stent x 1, depression Field Health Officer: Dr. Bernard Zimmer [facility] PMD: Dr. Adelso Casey Pulm: Dr. Tristan Hale Upon arrival to the ED, vital signs were BP 65/40 HR 72 RR 25 T 97.7 SPO2 93% on room air. CXR demonstrates cardiomegaly, chronic blunting of the left costophrenic angle (likely secondary to scarring ), no other pathology. EKG shows sinus arrhythmia, no evidence of acute infarction or ischemia. Troponin< 0.012. BG 843. Anion gap 21. BUN 75. Creatinine 4.0. Corrected sodium 141. Urine glucose>500. No ketones present. The patient was resuscitated with 4 L normal saline IVF. Insulin GTT initiated. Upon assessment, the patient is resting comfortably in bed on supplemental oxygen. He is alert and oriented 3 , states he remembers the entire event from earlier today, denies dizziness or LOC upon falling. The patient denies chest pain, shortness of breath, headache , dizziness, blurry vision, fever or chills. His only complaint is neuropathic pain in his bilateral lower extremities that has been getting increasingly worse over the last few months. Additionally, the patient endorses recent ill contact -states his neighbor was recently sick with ' some unknown illness.' When asked if the patient is compliant with his home medications, specifically his metformin and Lantus, the patient simply answers, "yup." However, he cannot tell me the dosage of his medications, nor does he know the schedule of his medications. Plan to admit to ICU under hospitalist service. Past Medical History Cardiac Medical History: Reports: Congestive Heart Failure, Hyperlipidema, Hypertension Denies: Myocardial Infarction Pulmonary Medical History: Denies: Asthma, Chronic Obstructive Pulmonary Disease (COPD) Neurological Medical History: Denies: Seizures Endocrine Medical History: Reports: Diabetes Mellitus Type 2 GI Medical History: Reports: Gastroesophageal Reflux Disease Denies: Hepatitis, Hiatal Hernia Psychiatric Medical History: Reports: Depression Hematology: Denies: Anemia, Sickle Cell Disease Past Surgical History Past Surgical History: Reports: Appendectomy Denies: Pacemaker Social History Information Source: Patient Lives with: Alone Smoking Status: Never Smoker Frequency of Alcohol Use: None Hx Recreational Drug Use: No Hx Prescription Drug Abuse: No - Advance Directive Resuscitation Status: Full Code Family History Family History: CAD, DM, Malignancy Parental Family History Reviewed: Yes Children Family History Reviewed: Yes Sibling(s) Family History Reviewed.: Yes Medication/Allergy Home Medications: Chlorthalidone [Chlorthalidone 25 mg Tablet] 25 mg PO DAILY 11/18/12 Hydralazine HCl 100 mg PO BID 11/18/12 Isosorbide Mononitrate [Imdur 60 mg Tablet.er] 60 mg PO DAILY 11/18/12 Labetalol HCl [Trandate] 300 mg PO BID 11/18/12 Lisinopril [Prinivil 40 mg Tablet] 40 mg PO DAILY 11/18/12 Metformin HCl [Glumetza] 1,000 mg PO BID 11/18/12 Simvastatin 40 mg PO DAILY 11/18/12 Insulin Glargine,Hum.rec.anlog [Lantus Insulin 100 Unit/mL] 50 unit SUBCUT BID 12/07/12 Albuterol Sulfate [Proair HFA] 1 - 2 puff IH Q4 PRN 05/12/15 Citalopram Hydrobromide [Celexa] 1 tab PO DAILY 05/12/15 Omeprazole 40 mg PO DAILY 05/12/15 Prasugrel Hydrochloride [Effient] 10 mg PO DAILY 05/12/15 Amox Tr/Potassium Clavulanate [Augmentin "500" Tablet] 1 tab PO Q8 #14 tablet 05/18/15 Docusate Sodium [Colace 100 mg Capsule] 100 mg PO BID #20 capsule 05/18/15 Fentanyl [Duragesic 12 Mcg/Hr Transdermal Patch] 1 each TD Q3DAYS PRN #3 patch.td72 05/18/15 Oxycodone HCl/Acetaminophen [Percocet 5-325 mg Tablet] 1 tab PO Q8HP PRN #25 tablet 05/18/15 Polyethylene Glycol 3350 [Miralax Powder 17 gm/Packet] 17 gm PO DAILY PRN #2 powd.pack 05/18/15 Allergies/Adverse Reactions: Tetanus Vaccines and Toxoid [Tetanus] Allergy (Mild, Verified 12/07/12 12:16) rash,swelling Review of Systems All systems: reviewed and no additional remarkable complaints except as stated Physical Exam Vital Signs: Temp Pulse Resp BP Pulse Ox 97.7 F 78 16 86/49 L 99 12/06/17 14:52 12/06/17 13:10 12/06/17 16:01 12/06/17 16:00 12/06/17 16:01 General appearance: PRESENT: no acute distress, obese Eye exam: PRESENT: conjunctiva pink, PERRLA Mouth exam: PRESENT: dry mucosa Teeth exam: PRESENT: poor dentation Neck exam: PRESENT: full ROM Respiratory exam: PRESENT: clear to auscultation nan, symmetrical, unlabored Cardiovascular exam: PRESENT: irregular rhythm - Sinus arrhythmia, +S1, +S2 Pulses: PRESENT: normal radial pulses, normal dorsalis pedis pul GI/Abdominal exam: PRESENT: normal bowel sounds, soft. ABSENT: tenderness Rectal exam: PRESENT: deferred Extremities exam: PRESENT: full ROM, other - VENOUS STASIS ULCERS AND SKIN DISCOLORATION. ABSENT: calf tenderness, joint swelling, pedal edema Musculoskeletal exam: PRESENT: ambulatory, full ROM Neurological exam: PRESENT: alert, awake, oriented to person, oriented to place , oriented to time, oriented to situation Psychiatric exam: PRESENT: unusual affect Skin exam: PRESENT: dry, intact, pallor, warm Additional comments: +FRUITY SMELLING BREATH Results Impressions: Chest X-Ray 12/06/17 13:29 IMPRESSION: Chronic blunting left lateral costophrenic sulcus with chronic appearing consolidation in the lateral left lung base. Status: Imported from PACS Assessment & Plan - Diagnosis (1) DKA (diabetic ketoacidoses) Qualifiers: Diabetes mellitus type: type 2 Diabetes mellitus complication detail: without coma Qualified Code(s): E11.10 - Type 2 diabetes mellitus with ketoacidosis without coma Is this a current diagnosis for this admission?: Yes Plan: Patient presents to the emergency department with a blood glucose of 843. Anion gap 21. Urine glucose > 500. No ketones present Patient states he is compliant with his home metformin and Lantus, although questionable given his significantly high blood sugar. Significant dehydration, resuscitated with 4 L IVF in ED Initiated insulin gtt, no bolus dose of insulin given in ED Monitor serial chemistries Check Hgb a1c in AM Continue maintenance NS IVF, change to d51/2 NS when BG less than 250 Continue Hooper catheter Strict I's and O's (2) Diabetes Qualifiers: Diabetes mellitus type: type 2 Diabetes mellitus assisted insulin use: with exterminator helper use Diabetes mellitus complication status: with ketoacidosis Is this a current diagnosis for this admission?: Yes Plan: Patient endorses history of type 2 diabetes. Patient states he is compliant with his metformin and Lantus Plan to check hemoglobin A1c with a.m. labs Remaining plan as above (3) ALVARO (acute kidney injury) Is this a current diagnosis for this admission?: Yes Plan: ALVARO secondary to dehydration stemming from intravascular volume depletion as a result of DKA. Initial BUN 75 creatinine 4.0 -baseline BUN 47 creatinine 2.04 Prerenal kidney injury diagnosis supported by BUN/creatinine ratio 20:1 Resuscitated with 4 L IVF in emergency department. Continue maintenance IVF 125 ML/hour (4) Hypotension Qualifiers: Hypotension type: hypotension due to hypovolemia Qualified Code(s): I95.89 - Other hypotension; E86.1 - Hypovolemia; E86.1 - Hypovolemia Is this a current diagnosis for this admission?: Yes Plan: HYPOtension secondary to HYPOvolemia stemming from intravascular volume loss related to DKA. Resuscitated with 4 L IVF in emergency department. Continue maintenance IVF MAP GOAL > 65 If patient unable to maintain adequate BP with IVF, consider vasopressors (5) Coronary artery disease Qualifiers: Coronary Disease-Associated Artery/Lesion type: unspecified vessel or lesion type [place] vs. transplanted heart: [place] heart Associated angina: without angina Qualified Code(s): I25.10 - Atherosclerotic heart disease of [place] coronary artery without angina pectoris Is this a current diagnosis for this admission?: Yes Plan: Patient endorses history of coronary artery disease. Aspirin and statin therapy (6) Hyponatremia Is this a current diagnosis for this admission?: No Plan: When corrected for HYPERglycemia, serum NA is 141 No need to treat HYPOnatremia (7) Neuropathy Is this a current diagnosis for this admission?: Yes Plan: Patient complains of neuropathic pain in bilateral lower extremities. States the pain is a constant burning sensation and has been getting increasingly worse over the last few months. Initiate low dose gabapentin, continue to re-assess for the need to increase dosing. - Time Time Spent: 30 to 50 Minutes Critical Time spent with patient: 15-24 minutes Medications reviewed and adjusted accordingly: Yes - Inpatient Certification Based on my medical assessment, after consideration of the patient's comorbidities, presenting symptoms, or acuity I expect that the services needed warrant INPATIENT care.: Yes I certify that my determination is in accordance with my understanding of Medicare's requirements for reasonable and necessary INPATIENT services [42 CFR 412.3e].: Yes Medical Necessity: Need Close Monitoring Due to Risk of Patient Decompensation, Risk of Complication if Not Cared For in Hospital - Plan Summary Plan Summary: Continue insulin drip and IV fluids for management of DKA. Strict I's and O's. Serial chemistries. Close monitoring for volume overload as patient has significant cardiomegaly
[2017-12-06 17:54] LABS: ANION GAP 17 (5-19); BLOOD UREA NITROGEN 67 mg/dL (7-20); CALCIUM 7.7 mg/dL (8.4-10.2); CARBON DIOXIDE 22 mmol/L (22-30); CHLORIDE 96 mmol/L (98-107); POTASSIUM 4.5 mmol/L (3.6-5.0); SODIUM 134.7 mmol/L (137-145)
[2017-12-06 18:05] LABS: GLUCOSE 573 mg/dL (75-110)
[2017-12-06] MEDS ORDERED: ATORVASTATIN CALCIUM 40 MG TABLET PO SCH (22:00)
[2017-12-07] MEDS ORDERED: INSULIN, REGULAR 100 UNIT/100 ML NORMAL SALINE IV PRN ×2 (00:21)
[2017-12-07] MEDS ORDERED: OXYCODONE-ACETAMINOPHEN 5-325 MG TABLET PO PRN (00:22)
[2017-12-07 00:53] LABS: ANION GAP 12 (5-19); BLOOD UREA NITROGEN 63 mg/dL (7-20); CALCIUM 8.1 mg/dL (8.4-10.2); CARBON DIOXIDE 26 mmol/L (22-30); CHLORIDE 102 mmol/L (98-107); GLUCOSE 227 mg/dL (75-110); POTASSIUM 3.7 mmol/L (3.6-5.0)
[2017-12-07] MEDS ORDERED: DEXTROSE 5%-1/2 NORMAL SALINE 1,000 ML IV PRN (05:25)
[2017-12-07 06:03] LABS: ABSOLUTE BASOPHILS # (AUTO) 0.1 10^3/uL (0.0-0.2); ABSOLUTE EOSINOPHILS # (AUTO) 0.3 10^3/uL (0.0-0.6); ABSOLUTE MONOCYTES (AUTO) 0.8 10^3/uL (0.1-1.4); ABSOLUTE NEUT (AUTO) 4.6 10^3/uL (1.7-8.2); BASOPHILS % (AUTO) 0.6 % (0-2); EOSINOPHILS % (AUTO) 3.6 % (0-6); HEMATOCRIT 33.5 % (37.9-51.0); HEMOGLOBIN 11.3 g/dL (13.5-17.0); LYMPHOCYTES % (AUTO) 34.2 % (13-45); MEAN CORPUSCULAR HGB CONC 33.6 g/dL (32.0-36.0); MEAN CORPUSCULAR VOLUME 89 fl (80-97); MONOCYTES % (AUTO) 9.6 % (3-13); PLATELET COUNT 263 10^3/uL (150-450); RED BLOOD COUNT 3.76 10^6/uL (4.35-5.55); RED CELL DISTRIBUTION WIDTH 13.5 % (11.5-14.0); TOTAL CELLS COUNTED % (AUTO) 100 %; WHITE BLOOD COUNT 8.8 10^3/uL (4.0-10.5)
[2017-12-07 06:31] LABS: ALANINE AMINOTRANSFERASE 35 U/L (21-72); ALBUMIN 3.2 g/dL (3.5-5.0); ALKALINE PHOSPHATASE 84 U/L (38-126); ANION GAP 11 (5-19); ASPARTATE AMINO TRANSFERASE 22 U/L (17-59); BILIRUBIN,DIRECT 0.4 mg/dL (0.0-0.4); BILIRUBIN,TOTAL 0.4 mg/dL (0.2-1.3); BLOOD UREA NITROGEN 56 mg/dL (7-20); CALCIUM 8.1 mg/dL (8.4-10.2); CARBON DIOXIDE 27 mmol/L (22-30); CHLORIDE 105 mmol/L (98-107); CHOLESTEROL 169.36 mg/dL (0-200); GLUCOSE 147 mg/dL (75-110); POTASSIUM 3.7 mmol/L (3.6-5.0); SODIUM 142.9 mmol/L (137-145); TOTAL PROTEIN 6.1 g/dL (6.3-8.2)
[2017-12-07 06:42] LABS: DIRECT LDL 44 mg/dL (<100)
[2017-12-07 06:45] LABS: TRIGLYCERIDES 606 mg/dL (<150)
[2017-12-07] MEDS ORDERED: ASPIRIN 81 MG TABLET, ENT COATED PO SCH (10:00)
[2017-12-07] MEDS ORDERED: ENOXAPARIN SODIUM INJ 30 MG/0.3 ML DISP.SYRIN SUBCUT SCH (10:00)
[2017-12-07 10:01] VITALS: BP 117/68
--- NOTE | 2017-12-07 22:26 | PDOC DISCHARGE SUMMARY ---
General - Admit/Disc Date/PCP Admission Date/Primary Care Provider: 12/06/17 15:29 NEERAJ CHRISTIAN MD Discharge Date: 12/07/17 - Discharge Diagnosis (1) DKA (diabetic ketoacidoses) Is this a current diagnosis for this admission?: Yes (2) ALVARO (acute kidney injury) Is this a current diagnosis for this admission?: Yes (3) Dehydration Is this a current diagnosis for this admission?: Yes (4) Coronary artery disease Is this a current diagnosis for this admission?: Yes (5) Diabetes Is this a current diagnosis for this admission?: Yes (6) Hypotension Is this a current diagnosis for this admission?: Yes (7) Hyponatremia Is this a current diagnosis for this admission?: No (8) Neuropathy Is this a current diagnosis for this admission?: Yes - Additional Information Resuscitation Status: Full Code Home Medications: Amlodipine Besylate [Norvasc 5 mg Tablet] 5 mg PO DAILY 12/07/17 Aspirin [Adult Low Dose Aspirin EC] 81 mg PO DAILY 12/07/17 Atorvastatin Calcium [Lipitor 20 mg Tablet] 20 mg PO DAILY 12/07/17 Chlorthalidone [Chlorthalidone 25 mg Tablet] 25 mg PO DAILY 12/07/17 Citalopram Hydrobromide [Celexa 40 mg Tablet] 40 mg PO DAILY 12/07/17 Hydralazine HCl 100 mg PO BID 12/07/17 Insulin Glargine,Hum.rec.anlog [Lantus Solostar] 50 units SQ BID 12/07/17 Isosorbide Mononitrate [Imdur 60 mg Tablet.er] 60 mg PO DAILY 12/07/17 Labetalol HCl [Trandate] 300 mg PO BID 12/07/17 Lisinopril [Zestril] 40 mg PO DAILY 12/07/17 Metformin HCl [Glucophage] 1,000 mg PO BID 12/07/17 Omeprazole 40 mg PO DAILY 12/07/17 History of Present Illness History of Present Illness: Per H&P by TEX Castillo: MARCOS JOSHI is a 62 year old male who presents to the emergency department following a mechanical fall while getting out of his car. The patient reports he drove to the grocery store and when getting out of his vehicle he fell and hit his head on the car door. He denies loss of consciousness. Following the fall the patient had a witnessed episode of vomiting 1. A good islam witnessed the event and called EMS. Upon their arrival to the scene, the patient was awake and talking but his BP was ~55/42. He was very pale and diaphoretic. BG reading 'high.' And route to [facility], the patient received 750mL IVF. PMH includes diabetes, unknown lung disease, CHF, CAD, stent x 1, depression Varnish Cooker: Dr. Bernard Zimmer [facility] PMD: Dr. Adelso Casey Pulm: Dr. Tristan Hale Upon arrival to the ED, vital signs were BP 65/40 HR 72 RR 25 T 97.7 SPO2 93% on room air. CXR demonstrates cardiomegaly, chronic blunting of the left costophrenic angle (likely secondary to scarring ), no other pathology. EKG shows sinus arrhythmia, no evidence of acute infarction or ischemia. Troponin< 0.012. BG 843. Anion gap 21. BUN 75. Creatinine 4.0. Corrected sodium 141. Urine glucose>500. No ketones present. The patient was resuscitated with 4 L normal saline IVF. Insulin GTT initiated. Upon assessment, the patient is resting comfortably in bed on supplemental oxygen. He is alert and oriented 3 , states he remembers the entire event from earlier today, denies dizziness or LOC upon falling. The patient denies chest pain, shortness of breath, headache , dizziness, blurry vision, fever or chills. His only complaint is neuropathic pain in his bilateral lower extremities that has been getting increasingly worse over the last few months. Additionally, the patient endorses recent ill contact -states his neighbor was recently sick with ' some unknown illness.' When asked if the patient is compliant with his home medications, specifically his metformin and Lantus, the patient simply answers, "yup." However, he cannot tell me the dosage of his medications, nor does he know the schedule of his medications. Plan to admit to ICU under hospitalist service. Hospital Course Hospital Course: The patient was admitted with a blood glucose of 843 and ALVARO with creatinine of 4.0 and BUN of 75. Anion gap 21. Urine glucose > 500. No ketones present The patient was admitted to the ICU. He received aggressive fluid resuscitation followed by maintenance IV fluids. His creatinine improved to 2.43 with BUN of 56 the following morning (baseline creatinine 2.04 and BUN 47). The patient was placed on an insulin drip and serial chemistries were monitored closely with overnight correction of glucose and electrolytes. Morning labs revealed a HbA1C of 12.2%. The patient's hypotension was determined to be secondary to hypovolemia; blood pressures improved following IVF. Pressor support was not required. Sodium corrected for glucose was found to be 141; no sodium correction was required. The patient expressed to nursing his intent to go home AGAINST MEDICAL ADVICE at approximately 11 am. Provider was notified and responded directly to patient 's bedside. Upon arrival, the patient was confrontational and would not be encouraged to remain inpatient while resuming outpatient insulin therapy or to provide additional IVF for ALVARO. The patient declined need for refills of outpatient medications. He was advised to follow up with his primary care provider within 1 week or sooner as needed. He was also encouraged to return to the Emergency Department for any worrisome symptoms. Physical Exam Vital Signs: Temp Pulse Resp BP Pulse Ox 97.8 F 70 15 117/68 95 12/07/17 04:45 12/06/17 17:55 12/07/17 10:00 12/07/17 09:05 12/07/17 10:00 Intake & Output 12/06/17 12/07/17 12/08/17 06:59 06:59 06:59 Intake Total 1468 Output Total 2150 2500 Balance -682 -2500 Weight 108.1 kg General appearance: PRESENT: no acute distress, well-developed, well-nourished Head exam: PRESENT: atraumatic, normocephalic Eye exam: PRESENT: conjunctiva pink, EOMI, PERRLA. ABSENT: scleral icterus Ear exam: PRESENT: normal external ear exam Mouth exam: PRESENT: moist, tongue midline Neck exam: PRESENT: full ROM Respiratory exam: PRESENT: symmetrical, unlabored. ABSENT: accessory muscle use Rectal exam: PRESENT: deferred Extremities exam: PRESENT: full ROM Musculoskeletal exam: PRESENT: ambulatory Neurological exam: PRESENT: alert, awake, oriented to person, oriented to place , oriented to time, oriented to situation, CN II-XII grossly intact. ABSENT: motor sensory deficit Psychiatric exam: PRESENT: agitated, appropriate affect. ABSENT: homicidal ideation, suicidal ideation Skin exam: PRESENT: dry, warm. ABSENT: cyanosis, rash Additional comments: Exam limited secondary to patient refusal. Results Laboratory Results: 12/07/17 05:53 12/07/17 05:53 12/06/17 12/07/17 12/07/17 17:30 00:14 05:53 WBC 8.8 RBC 3.76 L Hgb 11.3 L Hct 33.5 L MCV 89 MCH 30.0 MCHC 33.6 RDW 13.5 Plt Count 263 Seg Neutrophils % 52.0 Lymphocytes % 34.2 Monocytes % 9.6 Eosinophils % 3.6 Basophils % 0.6 Absolute Neutrophils 4.6 Absolute Lymphocytes 3.0 Absolute Monocytes 0.8 Absolute Eosinophils 0.3 Absolute Basophils 0.1 Sodium 134.7 L 140.0 Potassium 4.5 3.7 Chloride 96 L 102 Carbon Dioxide 22 26 Anion Gap 17 12 BUN 67 H 63 H Creatinine 3.48 H 2.80 H Est GFR ( Amer) 22 L 28 L Est GFR (Non-Af Amer) 18 L 23 L Glucose 573 H* 227 H Calcium 7.7 L 8.1 L Magnesium 2.2 2.4 H Total Bilirubin AST ALT Alkaline Phosphatase Total Protein Albumin Triglycerides Cholesterol LDL Cholesterol Direct VLDL Cholesterol HDL Cholesterol 12/07/17 05:53 WBC RBC Hgb Hct MCV MCH MCHC RDW Plt Count Seg Neutrophils % Lymphocytes % Monocytes % Eosinophils % Basophils % Absolute Neutrophils Absolute Lymphocytes Absolute Monocytes Absolute Eosinophils Absolute Basophils Sodium 142.9 Potassium 3.7 Chloride 105 Carbon Dioxide 27 Anion Gap 11 BUN 56 H Creatinine 2.43 H Est GFR ( Amer) 33 L Est GFR (Non-Af Amer) 27 L Glucose 147 H Calcium 8.1 L Magnesium 2.4 H Total Bilirubin 0.4 AST 22 ALT 35 Alkaline Phosphatase 84 Total Protein 6.1 L Albumin 3.2 L Triglycerides 606 H Cholesterol 169.36 LDL Cholesterol Direct 44 VLDL Cholesterol UNABLE TO CALCULATE HDL Cholesterol 23 L 12/06/17 17:30 Troponin I < 0.012 Impressions: Head CT 12/06/17 00:00 IMPRESSION: NORMAL BRAIN CT WITHOUT CONTRAST. EVIDENCE OF ACUTE STROKE: NO. Chest X-Ray 12/06/17 13:29 IMPRESSION: Chronic blunting left lateral costophrenic sulcus with chronic appearing consolidation in the lateral left lung base. Qualifiers - * PATIENT BEING DISCHARGED WITH ANY OF THE FOLLOWING DIAGNOSIS: No Plan Discharge Plan: Patient is advised to follow up with primary care provider as soon as possible. He is further advised to return to the Emergency Department for worsening symptoms (dizziness, weakness, near syncope/syncope, hyperglycemia, polyuria and polydipsia). Time Spent: Less than 30 Minutes
== END 2017-12-07 12:00 | disposition left against medical advice (07) | DRG 638 ==
LOC: ER 13:03 → EH 15:29 → ICU 17:54
PROVIDERS: ADMIT Internal Medicine; ATTEND Internal Medicine
DX: E11.10 Type 2 diabetes mellitus with ketoacidosis without coma (principal); N17.9 Acute kidney failure, unspecified; E87.1 Hypo-osmolality and hyponatremia; E86.0 Dehydration; I25.10 Atherosclerotic heart disease of native coronary artery without angina pectoris; E11.40 Type 2 diabetes mellitus with diabetic neuropathy, unspecified; F32.9 Major depressive disorder, single episode, unspecified; I11.0 Hypertensive heart disease with heart failure; I50.9 Heart failure, unspecified; E78.00 Pure hypercholesterolemia, unspecified; W17.89XA Other fall from one level to another, initial encounter; I95.89 Other hypotension; K21.9 Gastro-esophageal reflux disease without esophagitis; Z95.5 Presence of coronary angioplasty implant and graft; Z91.81 History of falling; Y92.481 Parking lot as the place of occurrence of the external cause; Z79.4 Long term (current) use of insulin; Z79.82 Long term (current) use of aspirin; Z79.899 Other long term (current) drug therapy; Z60.2 Problems related to living alone; Z88.7 Allergy status to serum and vaccine; Z82.49 Family history of ischemic heart disease and other diseases of the circulatory system; Z83.3 Family history of diabetes mellitus; Z80.9 Family history of malignant neoplasm, unspecified
CPT/HCPCS: 36415; 70450; 71045; 80048; 80053; 80061; 81001; 82550; 82553; 82962; 83036; 83735; 83880; 84484; 85025; 85610; 87086; 93005; 93010; 96360; 99291; J1650; J1815; J7030

== ENCOUNTER 2018-01-14 20:17 | Emergency (ER) | payer MEDICARE ==
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
[2018-01-14 20:53] LABS: ABSOLUTE EOSINOPHILS # (AUTO) 0.6 10^3/uL (0.0-0.6); ABSOLUTE LYMPHOCYTES (AUTO) 3.3 10^3/uL (0.5-4.7); ABSOLUTE MONOCYTES (AUTO) 1.1 10^3/uL (0.1-1.4); ABSOLUTE NEUT (AUTO) 5.5 10^3/uL (1.7-8.2); BASOPHILS % (AUTO) 0.3 % (0-2); EOSINOPHILS % (AUTO) 5.7 % (0-6); HEMATOCRIT 34.7 % (37.9-51.0); HEMOGLOBIN 11.6 g/dL (13.5-17.0); LYMPHOCYTES % (AUTO) 30.9 % (13-45); MEAN CORPUSCULAR HEMOGLOBIN 30.1 pg (27.0-33.4); MEAN CORPUSCULAR HGB CONC 33.3 g/dL (32.0-36.0); MEAN CORPUSCULAR VOLUME 90 fl (80-97); MONOCYTES % (AUTO) 10.2 % (3-13); PLATELET COUNT 343 10^3/uL (150-450); RED BLOOD COUNT 3.84 10^6/uL (4.35-5.55); SEGMENTED NEUTROPHILS % (AUTO) 52.9 % (42-78); TOTAL CELLS COUNTED % (AUTO) 100 %; WHITE BLOOD COUNT 10.5 10^3/uL (4.0-10.5)
[2018-01-14 21:13] LABS: ALANINE AMINOTRANSFERASE 44 U/L (21-72); ALBUMIN 4.4 g/dL (3.5-5.0); ALKALINE PHOSPHATASE 116 U/L (38-126); ANION GAP 16 (5-19); ASPARTATE AMINO TRANSFERASE 36 U/L (17-59); BILIRUBIN,DIRECT 0.3 mg/dL (0.0-0.4); BILIRUBIN,TOTAL 0.4 mg/dL (0.2-1.3); BLOOD UREA NITROGEN 55 mg/dL (7-20); CARBON DIOXIDE 23 mmol/L (22-30); CHLORIDE 105 mmol/L (98-107); GLUCOSE 102 mg/dL (75-110); POTASSIUM 5.4 mmol/L (3.6-5.0); SODIUM 143.8 mmol/L (137-145); TOTAL PROTEIN 7.8 g/dL (6.3-8.2)
[2018-01-14 21:15] LABS: ALCOHOL < 10 mg/dL (NONE DETECTED)
[2018-01-14 21:46] LABS: ACETAMINOPHEN < 10 ug/mL (10-30); SALICYLATE < 1.0 mg/dL (2.0-20.0)
[2018-01-14] MEDS ORDERED: LORAZEPAM INJ 2 MG/1 ML VIAL IV ONE (21:48)
[2018-01-14] MEDS ORDERED: CHLORPROMAZINE HCL INJ 25 MG/1 ML AMPULE IM SCH (22:45)
[2018-01-14] MEDS ORDERED: BENZTROPINE MESYLATE INJ 2 MG/2 ML AMPULE IM SCH (22:45)
--- NOTE | 2018-01-15 09:17 | EKG REPORT ---
SEVERITY:- BORDERLINE ECG - SINUS RHYTHM BORDERLINE T WAVE ABNORMALITIES : Confirmed by: Ellie Umaña MD 15-Jan-2018 09:16:30
[2018-01-15 12:17] VITALS: BP 89/49
== END 2018-01-15 12:17 | disposition home or self-care (01) ==
LOC: ER 20:17
DX: F60.9 Personality disorder, unspecified (principal); R41.82 Altered mental status, unspecified; I50.9 Heart failure, unspecified; E78.00 Pure hypercholesterolemia, unspecified; I11.0 Hypertensive heart disease with heart failure; E11.9 Type 2 diabetes mellitus without complications; Z88.0 Allergy status to penicillin; Z88.7 Allergy status to serum and vaccine
CPT/HCPCS: 93005; 99285; 96372; 96374; 36415; 82962; 80307 ×3; 85025; 80053; 93010; J0515; J3230; J2060

== ENCOUNTER 2018-01-18 07:56 | Inpatient (IN) | payer MEDICARE ==
--- NOTE | 2018-01-18 08:25 | ER Document Report ---
ED Psych Disorder / Suicide - General Chief Complaint: Psych Problem Stated Complaint: IVC Time Seen by Provider: 01/18/18 08:15 TRAVEL OUTSIDE OF THE [place] IN LAST 30 DAYS: No - HPI Patient complains to provider of: Bizarre behavior, Suicidal ideation Onset: This morning Notes: 62-year-old male with history of mental illness presents to the ER for suicidal thoughts and restorationism persecution. [facility] had evaluated the patient this morning and the patient was telling them that he is not going to be here tonight and was going to . He will not verbalize a specific plan the patient keeps quoting the Bible. The patient denies any visual auditory hallucinations. Denies homicidal ideation. Patient is very elusive about any kind of suicidal plan but states he has not been to be here tonight. The patient quickly redirects the question and begins some passage from the Bible. - Related Data Allergies/Adverse Reactions: Tetanus Vaccines and Toxoid [Tetanus] Allergy (Mild, Verified 01/18/18 07:57) rash,swelling Penicillins Allergy (Verified 01/18/18 07:57) Past Medical History - Social History Smoking Status: Unknown if Ever Smoked Family History: Reviewed & Not Pertinent, CAD, DM - Past Medical History Cardiac Medical History: Reports: Hx Congestive Heart Failure, Hx Hypercholesterolemia, Hx Hypertension Denies: Hx Heart Attack Pulmonary Medical History: Denies: Hx Asthma, Hx COPD Neurological Medical History: Denies: Hx Cerebrovascular Accident, Hx Seizures Endocrine Medical History: Reports: Hx Diabetes Mellitus Type 1, Hx Diabetes Mellitus Type 2 Renal/ Medical History: Denies: Hx Peritoneal Dialysis GI Medical History: Reports: Hx Gastroesophageal Reflux Disease. Denies: Hx Hepatitis, Hx Hiatal Hernia, Hx Ulcer Psychiatric Medical History: Reports: Hx Depression Infectious Medical History: Denies: Hx Hepatitis Past Surgical History: Reports: Hx Appendectomy, Hx Cardiac Surgery - stents 2013. Denies: Hx Open Heart Surgery, Hx Pacemaker Review of Systems - Review of Systems Constitutional: denies: Chills, Fever Cardiovascular: denies: Chest pain, Edema Respiratory: denies: Cough, Short of breath Gastrointestinal: denies: Abdominal pain, Nausea, Vomiting Musculoskeletal: denies: Back pain Neurological/Psychological: Suicidal ideation -: Yes All other systems reviewed and negative Physical Exam - Vital signs Vitals: Temp Pulse Resp BP Pulse Ox 99.4 F 76 20 114/80 95 01/18/18 08:01 01/18/18 08:01 01/18/18 08:01 01/18/18 08:01 01/18/18 08:01 - Notes Notes: GENERAL_APPEARANCE: well_nourished, alert, cooperative, very bizarre behavior. VITALS: reviewed, see vital signs table. HEAD: no_swelling\tenderness on the head. EYES: PERRL, EOMI, conjunctiva_clear. NOSE: no_nasal_discharge. MOUTH: (-)decreased moisture. THROAT: no_airway_obstruction. no_lymphadenopathy NECK: supple, no_neck_tenderness, (-)thyromegaly. BACK: no_back_tenderness. CHEST_WALL: no_chest_tenderness. LUNGS: no_wheezing, no_rales, no_rhonchi, (-)accessory muscle use, good air exchange bilateral. HEART: normal_rate, normal_rhythm, normal_S1, normal_S2, (-)S3, (-)S4, no_ murmur, no_rub. ABDOMEN: soft, no_abd_tenderness, (-)guarding, (-)rebound, no_organomegaly, no_ abd_masses. EXTREMITIES: good pulses in all_extremities, no_swelling\tenderness in the extremities, no_edema. SKIN: warm, dry, good_color, no_rash. Chronic skin changes MENTAL_STATUS: speech_clear, oriented_X_3, bizarre animated_affect, responds_ appropriately to questions. NEURO: Neg Motor or Sensory Deficits on exam, CN 2-12 intact, DTR 2+ symmetric x 4, No cerbellar signs PSYCH: Patient keeps saying he is not to be here tonight. He will not elaborate to exactly what he is going to do to himself. Patient is very tangential. His hard to keep him focused on this he keeps going back to the Bible. He denies homicidal ideation denies visual auditory hallucinations. Patient animated may be slightly manic also. Course - Vital Signs Vital signs: Temp Pulse Resp BP Pulse Ox 99.4 F 76 20 122/66 97 01/18/18 08:01 01/18/18 08:01 01/18/18 15:01 01/18/18 15:01 01/18/18 15:01 01/18/18 15:46 Patient elevated potassium and an elevated BUN. Patient's creatinine is not too far off baseline. Because of the patient's psychosis the last couple days he has not been eating or drinking. He likely has caused further dehydration and acute kidney injury which is resulting in hyperkalemia. Patient was given several liters of IV fluids and some bicarb. His BUN is come down but potassium has improved the patient is having no EKG changes. The patient's hyperkalemia will likely improve as he is appropriately hydrated since his creatinine is stable. I spoke with the hospitalist service who is in agreement due to the patient's extreme psychosis and psychiatric disorder he will need to be admitted to the intensive care unit with a sitter one-on-one care. - Laboratory Result Diagrams: 01/18/18 08:25 01/18/18 14:44 Laboratory results interpreted by me: 01/18/18 01/18/18 01/18/18 08:25 08:25 08:25 RBC 3.91 L Hgb 11.6 L Hct 35.3 L RDW 14.5 H Sodium Potassium 6.3 H* Chloride 108 H Carbon Dioxide 16 L BUN 73 H Creatinine 2.25 H Est GFR ( Amer) 36 L Est GFR (Non-Af Amer) 30 L Glucose 331 H Alkaline Phosphatase 138 H Creatine Kinase Total Protein Urine Glucose (UA) >=500 H Salicylates < 1.0 L Acetaminophen < 10 L 01/18/18 01/18/18 01/18/18 10:15 10:15 14:44 RBC Hgb Hct RDW Sodium 146.6 H Potassium 6.7 H* 6.4 H* Chloride 108 H Carbon Dioxide 17 L 20 L BUN 72 H 67 H Creatinine 2.29 H 2.01 H Est GFR ( Amer) 35 L 41 L Est GFR (Non-Af Amer) 29 L 34 L Glucose 309 H 223 H Alkaline Phosphatase 139 H Creatine Kinase 301 H Total Protein 8.5 H Urine Glucose (UA) Salicylates Acetaminophen - EKG Interpretation by Me EKG shows normal: Sinus rhythm Rate: Normal Rhythm: NSR When compared to previous EKG there are: No significant change - Transfer of Care Notes: 01/18/18 08:24 62-year-old male history of mental illness comes in complaining of indirect suicidality. He states he is not going to be here tonight but will not elaborate as to exactly why. The patient is constantly going back to the Bible and quoting scripture. Patient was having restorationism persecutions. Denies homicidal ideation denies visual auditory hallucinations does seem to have some delusional behavior he has no insight into his situation at this time and his judgment is clouded. We will medically screen him and refer him to psychology Dr. Jara. Critical Care Note - Critical Care Note Total time excluding time spent on procedures (mins): 32 Discharge - Discharge Clinical Impression: Dehydration, Acute kidney injury, Hyperkalemia Psychosis Qualifiers: Psychosis type: delusional disorder Qualified Code(s): F22 - Delusional disorders Condition: Fair Disposition: ADMITTED INPATIENT Admitting Provider: Hospitalist Unit Admitted: ICU Referrals: NEERAJ CHRISTIAN MD [Primary Care Provider] - Follow up as needed
[2018-01-18] MEDS ORDERED: HALOPERIDOL LACTATE INJ 5 MG/1 ML VIAL IM ONE (08:34)
[2018-01-18] MEDS ORDERED: LORAZEPAM INJ 2 MG/1 ML VIAL IM ONE (08:34)
[2018-01-18] MEDS ORDERED: CHLORPROMAZINE HCL INJ 25 MG/1 ML AMPULE IV ONE (08:58)
[2018-01-18] MEDS ORDERED: BENZTROPINE MESYLATE INJ 2 MG/2 ML AMPULE IM ONE (09:00)
[2018-01-18] MEDS ORDERED: FLUPHENAZINE DECANOATE INJ 125 MG/5 ML VIAL IM ONE (09:00)
[2018-01-18 09:31] LABS: ABSOLUTE EOSINOPHILS # (AUTO) 0.3 10^3/uL (0.0-0.6); ABSOLUTE MONOCYTES (AUTO) 0.8 10^3/uL (0.1-1.4); ABSOLUTE NEUT (AUTO) 6.2 10^3/uL (1.7-8.2); BASOPHILS % (AUTO) 0.4 % (0-2); EOSINOPHILS % (AUTO) 3.7 % (0-6); HEMATOCRIT 35.3 % (37.9-51.0); HEMOGLOBIN 11.6 g/dL (13.5-17.0); LYMPHOCYTES % (AUTO) 21.8 % (13-45); MEAN CORPUSCULAR HEMOGLOBIN 29.8 pg (27.0-33.4); MEAN CORPUSCULAR VOLUME 90 fl (80-97); MONOCYTES % (AUTO) 8.4 % (3-13); PLATELET COUNT 350 10^3/uL (150-450); RED BLOOD COUNT 3.91 10^6/uL (4.35-5.55); RED CELL DISTRIBUTION WIDTH 14.5 % (11.5-14.0); SEGMENTED NEUTROPHILS % (AUTO) 65.7 % (42-78); TOTAL CELLS COUNTED % (AUTO) 100 %; WHITE BLOOD COUNT 9.4 10^3/uL (4.0-10.5)
[2018-01-18 09:33] LABS: APPEARANCE,URINE CLEAR; BILIRUBIN,URINE NEGATIVE (NEGATIVE); COLOR,URINE YELLOW; GLUCOSE, URINE >=500 mg/dL (NEGATIVE); KETONES,URINE NEGATIVE (NEGATIVE); LEUKOCYTE ESTERASE,URINE NEGATIVE (NEGATIVE); NITRITE,URINE NEGATIVE (NEGATIVE); PROTEIN,URINE NEGATIVE (NEGATIVE); URINE SPECIFIC GRAVITY 1.011; UROBILINOGEN,URINE NEGATIVE mg/dL (<2.0)
[2018-01-18 09:46] LABS: URINE AMPHETAMINES SCREEN NEGATIVE; URINE BARBITURATES SCREEN NEGATIVE; URINE BENZODIAZEPINES SCREEN NEGATIVE; URINE COCAINE SCREEN NEGATIVE; URINE MARIJUANA (THC) SCREEN NEGATIVE; URINE METHADONE SCREEN NEGATIVE; URINE PHENCYCLIDINE SCREEN NEGATIVE
[2018-01-18 09:52] LABS: ALANINE AMINOTRANSFERASE 49 U/L (21-72); ALBUMIN 4.4 g/dL (3.5-5.0); ALKALINE PHOSPHATASE 138 U/L (38-126); ANION GAP 18 (5-19); ASPARTATE AMINO TRANSFERASE 31 U/L (17-59); BILIRUBIN,DIRECT 0.3 mg/dL (0.0-0.4); BILIRUBIN,TOTAL 0.3 mg/dL (0.2-1.3); BLOOD UREA NITROGEN 73 mg/dL (7-20); CARBON DIOXIDE 16 mmol/L (22-30); CHLORIDE 108 mmol/L (98-107); GLUCOSE 331 mg/dL (75-110); SODIUM 141.7 mmol/L (137-145)
[2018-01-18 09:53] LABS: ACETAMINOPHEN < 10 ug/mL (10-30); ALCOHOL < 10 mg/dL (NONE DETECTED); SALICYLATE < 1.0 mg/dL (2.0-20.0)
[2018-01-18 09:55] LABS: POTASSIUM 6.3 mmol/L (3.6-5.0)
[2018-01-18] MEDS ORDERED: NORMAL SALINE 1000 ML 2,000 ML IV ONE (10:10)
[2018-01-18 10:55] LABS: ALANINE AMINOTRANSFERASE 49 U/L (21-72); ALBUMIN 4.6 g/dL (3.5-5.0); ALKALINE PHOSPHATASE 139 U/L (38-126); ANION GAP 18 (5-19); ASPARTATE AMINO TRANSFERASE 35 U/L (17-59); BILIRUBIN,DIRECT 0.3 mg/dL (0.0-0.4); BILIRUBIN,TOTAL 0.3 mg/dL (0.2-1.3); BLOOD UREA NITROGEN 72 mg/dL (7-20); CALCIUM 10.1 mg/dL (8.4-10.2); CARBON DIOXIDE 17 mmol/L (22-30); CHLORIDE 107 mmol/L (98-107); GLUCOSE 309 mg/dL (75-110); SODIUM 142.1 mmol/L (137-145); TOTAL PROTEIN 8.5 g/dL (6.3-8.2)
[2018-01-18] MEDS ORDERED: HALOPERIDOL LACTATE INJ 5 MG/1 ML VIAL IV ONE (10:56)
[2018-01-18] MEDS ORDERED: LORAZEPAM INJ 2 MG/1 ML VIAL IV ONE (10:56)
[2018-01-18 11:02] LABS: POTASSIUM 6.7 mmol/L (3.6-5.0)
[2018-01-18] MEDS ORDERED: SODIUM BICARBONATE 8.4% INJ 50 MEQ/50 ML DISP.SYRIN IV ONE (12:02)
[2018-01-18 15:33] LABS: ANION GAP 19 (5-19); BLOOD UREA NITROGEN 67 mg/dL (7-20); CARBON DIOXIDE 20 mmol/L (22-30); CHLORIDE 108 mmol/L (98-107); GLUCOSE 223 mg/dL (75-110); SODIUM 146.6 mmol/L (137-145)
[2018-01-18 15:36] LABS: POTASSIUM 6.4 mmol/L (3.6-5.0)
[2018-01-18] MEDS ORDERED: CHLORPROMAZINE HCL INJ 25 MG/1 ML AMPULE IM PRN (16:41)
[2018-01-18] MEDS ORDERED: GLUCAGON,HUMAN RECOMB 1 MG INJ IM PRN (16:44)
[2018-01-18] MEDS ORDERED: NORMAL SALINE 1000 ML 1,000 ML IV PRN (16:44)
[2018-01-18] MEDS ORDERED: DEXTROSE 50%-WATER 25 GM/50 ML DISP.SYRIN IV PRN ×2 (16:44)
[2018-01-18] MEDS ORDERED: DEXTROSE 40% GEL 15 GM TUBE PO PRN ×2 (16:44)
--- NOTE | 2018-01-18 17:06 | PDOC H&P ---
History of Present Illness Admission Date/PCP: 01/18/18 16:11 NEERAJ CHRISTIAN MD History of Present Illness: MARCOS JOSHI is a 62 year old male who had previously been seen in the emergency department 4 days ago for altered mental status which turned out to be a psychiatric issue. He was given some medication recommendations after having been seen by behavioral health and was sent home. He apparently has been having some strange behaviors recently, dating back from the past 6 months , and apparently had an episode in islam the other day he had some very strange and agitated behaviors and apparently tried to swim in the [id number] [place]. Somehow today he want up on the phone with mobile crisis and told him that he was not going to be here tomorrow, that he was going to tonight, but he did not have any specific details as to how this would happen. He somehow wound up here in the hospital in the emergency department, and was extremely agitated at one point had to be in restraints. He was seen by behavioral health who made some medication recommendations and after several doses of antipsychotics he was able to relax. Some blood was able to be drawn him he was found to be dehydrated and hypokalemic. He got 2 L of IV fluids in the ER. He has been involuntarily committed. Past Medical History Cardiac Medical History: Reports: Congestive Heart Failure, Hyperlipidema, Hypertension Denies: Myocardial Infarction Pulmonary Medical History: Denies: Asthma, Chronic Obstructive Pulmonary Disease (COPD) Neurological Medical History: Denies: Seizures Endocrine Medical History: Reports: Diabetes Mellitus Type 1, Diabetes Mellitus Type 2 GI Medical History: Reports: Gastroesophageal Reflux Disease Denies: Hepatitis, Hiatal Hernia Psychiatric Medical History: Reports: Depression Hematology: Denies: Anemia, Sickle Cell Disease Past Surgical History Past Surgical History: Reports: Appendectomy Denies: Pacemaker Social History Information Source: [facility] Records - Unable to obtain any information on the patient because he is sedated Smoking Status: Unknown if Ever Smoked Frequency of Alcohol Use: None Hx Recreational Drug Use: No Hx Prescription Drug Abuse: No Family History Family History: Reviewed & Not Pertinent, CAD, DM Parental Family History Reviewed: No - Unable to obtain Children Family History Reviewed: No - Unable to obtain Sibling(s) Family History Reviewed.: No - Unable to obtain Medication/Allergy Home Medications: Amlodipine Besylate [Norvasc 5 mg Tablet] 5 mg PO DAILY 12/07/17 Aspirin [Adult Low Dose Aspirin EC] 81 mg PO DAILY 12/07/17 Atorvastatin Calcium [Lipitor 20 mg Tablet] 20 mg PO DAILY 12/07/17 Chlorthalidone [Chlorthalidone 25 mg Tablet] 25 mg PO DAILY 12/07/17 Citalopram Hydrobromide [Celexa 40 mg Tablet] 40 mg PO DAILY 12/07/17 Hydralazine HCl 100 mg PO BID 12/07/17 Insulin Glargine,Hum.rec.anlog [Lantus Solostar] 50 units SQ BID 12/07/17 Isosorbide Mononitrate [Imdur 60 mg Tablet.er] 60 mg PO DAILY 12/07/17 Labetalol HCl [Trandate] 300 mg PO BID 12/07/17 Lisinopril [Zestril] 40 mg PO DAILY 12/07/17 Metformin HCl [Glucophage] 1,000 mg PO BID 12/07/17 Omeprazole 40 mg PO DAILY 12/07/17 Allergies/Adverse Reactions: Tetanus Vaccines and Toxoid [Tetanus] Allergy (Mild, Verified 01/18/18 07:57) rash,swelling Penicillins Allergy (Verified 01/18/18 07:57) Review of Systems ROS unobtainable: Due to mental status - Patient is currently sedated, and prior to that was apparently psychotic Physical Exam Vital Signs: Temp Pulse Resp BP Pulse Ox 99.4 F 76 20 122/66 97 01/18/18 08:01 01/18/18 08:01 01/18/18 15:01 01/18/18 15:01 01/18/18 15:01 General appearance: PRESENT: disheveled, obese, other Head exam: PRESENT: atraumatic - Sedated when I saw him, normocephalic Eye exam: PRESENT: conjunctiva pink. ABSENT: periorbital swelling, scleral icterus Ear exam: PRESENT: normal external ear exam Mouth exam: PRESENT: moist, neck supple Teeth exam: PRESENT: poor dentation Neck exam: ABSENT: carotid bruit, JVD, lymphadenopathy, thyromegaly Respiratory exam: PRESENT: clear to auscultation nan, symmetrical, unlabored. ABSENT: rales, rhonchi, tachypnea, wheezes Cardiovascular exam: PRESENT: RRR, +S1, +S2. ABSENT: diastolic murmur, systolic murmur Pulses: PRESENT: normal carotid pulses, normal radial pulses Vascular exam: PRESENT: normal capillary refill GI/Abdominal exam: PRESENT: distended - I think that this is simply his body habitus, normal bowel sounds, soft. ABSENT: guarding, rebound, tenderness Extremities exam: ABSENT: clubbing, pedal edema Musculoskeletal exam: PRESENT: normal inspection. ABSENT: deformity Neurological exam: PRESENT: other - He was sedated so I could not obtain a satisfactory neurological examination Skin exam: PRESENT: dry, warm Results Laboratory Results: Reviewed Assessment & Plan - Diagnosis (1) Hyperkalemia Is this a current diagnosis for this admission?: Yes Plan: Possibly from dehydration. Unknown what his home medication pattern has been lately. holding most of his home medications and giving him IV fluids. Check periodic metabolic panels. Cardiac monitoring. No EKG changes were noted in the ER. (2) Dehydration Is this a current diagnosis for this admission?: Yes Plan: Creatinine seems to be at its usual level, but his BUN is substantially elevated. He had 2 L of IV fluids in the ER, and will continue hydrating him. (3) Psychosis Qualifiers: Psychosis type: delusional disorder Qualified Code(s): F22 - Delusional disorders Is this a current diagnosis for this admission?: Yes Plan: He has been involuntarily committed, the behavioral health services seeing him and have made medication recommendations which we have implemented. (4) Stage 3 chronic kidney disease due to diabetes mellitus Is this a current diagnosis for this admission?: Yes Plan: Stable and its usual level. (5) Insulin dependent diabetes mellitus Is this a current diagnosis for this admission?: Yes Plan: I am holding off on his Lantus right now because he has not been eating, but we do have him on a sliding scale. Will probably have to adjust this because he is on a rather large dose of Lantus at home. When he is starting to eat more we can start giving him his Lantus. - Time Time Spent: 50 to 70 Minutes - Inpatient Certification Medical Necessity: Need Close Monitoring Due to Risk of Patient Decompensation, Need For IV Fluids, Need For Continuous Telemetry Monitoring
[2018-01-18 17:42] LABS: ANION GAP 11 (5-19); BLOOD UREA NITROGEN 65 mg/dL (7-20); CALCIUM 9.3 mg/dL (8.4-10.2); CARBON DIOXIDE 22 mmol/L (22-30); CHLORIDE 112 mmol/L (98-107); GLUCOSE 223 mg/dL (75-110); SODIUM 144.5 mmol/L (137-145)
[2018-01-18 17:49] LABS: POTASSIUM 6.2 mmol/L (3.6-5.0)
--- NOTE | 2018-01-18 17:55 | EKG REPORT ---
SEVERITY:- OTHERWISE NORMAL ECG - SINUS RHYTHM RIGHT AXIS DEVIATION : Confirmed by: yN Mckeon 18-Jan-2018 17:54:52
[2018-01-18] MEDS ORDERED: (PENDING PHARMACY ID) (Labetalol Hcl [Trandate] 300 MG) PO SCH (18:00)
[2018-01-18] MEDS: INSULIN LISPRO 100 UNIT/ML 3 ML VIAL SUBCUT PRN (21:20)
[2018-01-18] MEDS: LABETALOL HCL 200 MG TABLET PO SCH (21:22)
[2018-01-18 21:24] LABS: ANION GAP 14 (5-19); BLOOD UREA NITROGEN 59 mg/dL (7-20); CALCIUM 9.6 mg/dL (8.4-10.2); CARBON DIOXIDE 22 mmol/L (22-30); CHLORIDE 113 mmol/L (98-107); GLUCOSE 223 mg/dL (75-110); POTASSIUM 5.6 mmol/L (3.6-5.0); SODIUM 148.9 mmol/L (137-145)
[2018-01-19] MEDS: INSULIN LISPRO 100 UNIT/ML 3 ML VIAL SUBCUT PRN ×5 (00:51→22:18)
[2018-01-19 01:21] LABS: ANION GAP 11 (5-19); BLOOD UREA NITROGEN 56 mg/dL (7-20); CALCIUM 8.8 mg/dL (8.4-10.2); CARBON DIOXIDE 22 mmol/L (22-30); CHLORIDE 115 mmol/L (98-107); GLUCOSE 245 mg/dL (75-110); POTASSIUM 5.4 mmol/L (3.6-5.0); SODIUM 147.8 mmol/L (137-145)
[2018-01-19] MEDS ORDERED: ACETAMINOPHEN 325 MG TABLET PO PRN (04:12)
[2018-01-19 05:48] LABS: ANION GAP 12 (5-19); BLOOD UREA NITROGEN 53 mg/dL (7-20); CALCIUM 8.7 mg/dL (8.4-10.2); CARBON DIOXIDE 19 mmol/L (22-30); CHLORIDE 116 mmol/L (98-107); GLUCOSE 190 mg/dL (75-110); POTASSIUM 5.3 mmol/L (3.6-5.0); SODIUM 147.2 mmol/L (137-145)
[2018-01-19] MEDS: NORMAL SALINE 1000 ML 1,000 ML IV PRN ×2 (09:05→22:20)
[2018-01-19] MEDS: ASPIRIN 81 MG TABLET, ENT COATED PO SCH (09:36)
[2018-01-19] MEDS: ENOXAPARIN SODIUM INJ 30 MG/0.3 ML DISP.SYRIN SUBCUT SCH (09:36)
[2018-01-19] MEDS: BENZTROPINE MESYLATE 1 MG TABLET PO SCH (09:36)
[2018-01-19] MEDS: LABETALOL HCL 200 MG TABLET PO SCH ×2 (09:37→22:19)
[2018-01-19 09:54] LABS: ANION GAP 15 (5-19); BLOOD UREA NITROGEN 44 mg/dL (7-20); CALCIUM 8.9 mg/dL (8.4-10.2); CARBON DIOXIDE 19 mmol/L (22-30); CHLORIDE 113 mmol/L (98-107); GLUCOSE 273 mg/dL (75-110); POTASSIUM 5.9 mmol/L (3.6-5.0); SODIUM 146.7 mmol/L (137-145)
[2018-01-19] MEDS ORDERED: SODIUM POLYSTYRENE SULFONATE 15 GM/60 ML PO PRN (12:23)
[2018-01-19] MEDS ORDERED: SODIUM POLYSTYRENE SULFONATE 15 GM/60 ML ONE (12:26)
--- NOTE | 2018-01-19 16:54 | PDOC PROGRESS REPORT ---
Subjective Subjective:: Mr. Sharif was admitted for acute psychosis, hyperkalemia and acute kidney injury. No acute event overnight. No recurrence of psychotic episode. Denies chest pain, shortness of breath. No fever or chills. On examination this morning, patient was then tangential. Denies suicidal ideation. Reason For Visit: HYPERKALEMIA,DEHYDRATION,SUICIDAL IDEATION, Physical Exam Vital Signs: Temp Pulse Resp BP Pulse Ox 98.9 F 65 17 159/78 H 100 01/19/18 16:00 01/19/18 16:00 01/19/18 16:00 01/19/18 16:00 01/19/18 16:00 Intake & Output 01/18/18 01/19/18 01/20/18 06:59 06:59 06:59 Intake Total 480 960 Output Total 1000 Balance -520 960 Weight 239 lb 13.807 oz General appearance: PRESENT: no acute distress Head exam: PRESENT: atraumatic Eye exam: PRESENT: conjunctiva pink, EOMI, PERRLA. ABSENT: scleral icterus Respiratory exam: PRESENT: clear to auscultation nan. ABSENT: rales, rhonchi, wheezes Cardiovascular exam: PRESENT: RRR. ABSENT: diastolic murmur, rubs, systolic murmur Pulses: PRESENT: normal dorsalis pedis pul GI/Abdominal exam: PRESENT: normal bowel sounds, soft. ABSENT: distended, guarding, mass, organolmegaly, rebound, tenderness Rectal exam: PRESENT: deferred Extremities exam: PRESENT: full ROM. ABSENT: calf tenderness, clubbing, pedal edema Neurological exam: PRESENT: alert, oriented to person, oriented to place, oriented to time Focused psych exam: PRESENT: flight of ideas, other - denies suicidal ideation, denies hallucinations Skin exam: PRESENT: dry, intact, warm. ABSENT: cyanosis, rash Results Laboratory Results: 01/19/18 09:23 01/18/18 01/18/18 01/19/18 17:12 21:00 01:04 Sodium 144.5 148.9 H 147.8 H Potassium 6.2 H* 5.6 H 5.4 H Chloride 112 H 113 H 115 H Carbon Dioxide 22 22 22 Anion Gap 11 14 11 BUN 65 H 59 H 56 H Creatinine 1.83 H 1.66 H 1.47 H Est GFR ( Amer) 45 L 51 L 59 L Est GFR (Non-Af Amer) 38 L 42 L 48 L Glucose 223 H 223 H 245 H Calcium 9.3 9.6 8.8 01/19/18 01/19/18 05:04 09:23 Sodium 147.2 H 146.7 H Potassium 5.3 H 5.9 H Chloride 116 H 113 H Carbon Dioxide 19 L 19 L Anion Gap 12 15 BUN 53 H 44 H Creatinine 1.40 H 1.40 H Est GFR ( Amer) > 60 > 60 Est GFR (Non-Af Amer) 51 L 51 L Glucose 190 H 273 H Calcium 8.7 8.9 Assessment & Plan - Diagnosis (1) Hyperkalemia Is this a current diagnosis for this admission?: Yes Plan: Hyperkalemia is likely secondary to his acute kidney injury. Patient was given a dose of bicarb yesterday and received 2 L of fluid bolus. Potassium this morning improved down to 5.3 from 6.2 on admission. Repeat potassium today later went up to 5.9. We will give 1 dose of Kayexalate. (2) Acute kidney injury Is this a current diagnosis for this admission?: Yes Plan: Patient's renal functions did significantly improve after a fluid replacement. Creatinine is improved down to 1.4. Patient is now tolerating oral intake well. His sodium and chloride has been trending up. Will decrease normal saline to 50 cc/hr. Continue to hold lisinopril for now. (3) Psychosis Qualifiers: Psychosis type: delusional disorder Qualified Code(s): F22 - Delusional disorders Is this a current diagnosis for this admission?: Yes Plan: Resolved. Will await for further recommendations from psych. Will downgrade patient from ICU. (4) Insulin dependent diabetes mellitus Is this a current diagnosis for this admission?: Yes Plan: We will resume Lantus at a lower dose of 30 units at bedtime. We will titrate up based on his exceeding glucose checks. (5) Hypertension Qualifiers: Hypertension type: essential hypertension Qualified Code(s): I10 - Essential (primary) hypertension Is this a current diagnosis for this admission?: Yes Plan: Continue labetalol. Hold Lisinopril for now.
[2018-01-19 18:42] LABS: ANION GAP 14 (5-19); BLOOD UREA NITROGEN 38 mg/dL (7-20); CALCIUM 9.3 mg/dL (8.4-10.2); CARBON DIOXIDE 24 mmol/L (22-30); CHLORIDE 109 mmol/L (98-107); GLUCOSE 199 mg/dL (75-110); POTASSIUM 5.1 mmol/L (3.6-5.0); SODIUM 146.9 mmol/L (137-145)
[2018-01-19] MEDS: INSULIN GLARGINE,HUM.REC.ANLOG 300 UNIT/3 ML INSULN.PEN SUBCUT SCH (22:17)
[2018-01-19] MEDS ORDERED: HALOPERIDOL LACTATE INJ 5 MG/1 ML VIAL IM ONE (23:30)
[2018-01-20 08:12] LABS: ANION GAP 12 (5-19); BLOOD UREA NITROGEN 31 mg/dL (7-20); CALCIUM 9.4 mg/dL (8.4-10.2); CARBON DIOXIDE 26 mmol/L (22-30); CHLORIDE 108 mmol/L (98-107); GLUCOSE 151 mg/dL (75-110); SODIUM 145.6 mmol/L (137-145)
[2018-01-20] MEDS: ASPIRIN 81 MG TABLET, ENT COATED PO SCH (10:22)
[2018-01-20] MEDS: BENZTROPINE MESYLATE 1 MG TABLET PO SCH (10:23)
[2018-01-20] MEDS: LABETALOL HCL 200 MG TABLET PO SCH ×2 (10:23→22:29)
[2018-01-20] MEDS: ENOXAPARIN SODIUM INJ 30 MG/0.3 ML DISP.SYRIN SUBCUT SCH (10:24)
[2018-01-20] MEDS: INSULIN LISPRO 100 UNIT/ML 3 ML VIAL SUBCUT PRN ×2 (12:48→17:01)
--- NOTE | 2018-01-20 14:55 | PDOC PROGRESS REPORT ---
Subjective Progress Note for:: 01/20/18 Subjective:: Mr. Sharif was admitted for acute psychosis, hyperkalemia and acute kidney injury. Per nursing report, patient reported wanting to jump out of the window last night. Upon encounter, patient says that he was choking about jumping out of the window. However he continues to be tangential. He denies hallucinations or delusions. Denies chest pain, shortness of breath. No fever or chills. He is tolerating diet well. Reason For Visit: HYPERKALEMIA,DEHYDRATION,SUICIDAL IDEATION, Physical Exam Vital Signs: Temp Pulse Resp BP Pulse Ox 98.8 F 57 L 16 120/49 L 98 01/20/18 11:54 01/20/18 11:54 01/20/18 11:54 01/20/18 11:54 01/20/18 11:54 Intake & Output 01/19/18 01/20/18 01/21/18 06:59 06:59 06:59 Intake Total 480 2263 525 Output Total 1000 620 Balance -520 1643 525 Weight 239 lb 13.807 oz 238 lb 5.115 oz General appearance: PRESENT: no acute distress Head exam: PRESENT: atraumatic Eye exam: PRESENT: conjunctiva pink, EOMI, PERRLA. ABSENT: scleral icterus Neck exam: ABSENT: carotid bruit, JVD, lymphadenopathy, thyromegaly Respiratory exam: PRESENT: clear to auscultation nan. ABSENT: rales, rhonchi, wheezes Cardiovascular exam: PRESENT: RRR. ABSENT: diastolic murmur, rubs, systolic murmur Pulses: PRESENT: normal dorsalis pedis pul Vascular exam: PRESENT: normal capillary refill GI/Abdominal exam: PRESENT: normal bowel sounds, soft. ABSENT: distended, guarding, mass, organolmegaly, rebound, tenderness Rectal exam: PRESENT: deferred Musculoskeletal exam: PRESENT: ambulatory Neurological exam: PRESENT: alert, oriented to person, oriented to place, oriented to time, oriented to situation Psychiatric exam: PRESENT: other - Patient is tangential, denies suicidal or homicidal ideation, no hallucinations visual or auditory, no delusions Skin exam: PRESENT: dry, intact, warm. ABSENT: cyanosis, rash Results Laboratory Results: 01/20/18 07:30 01/19/18 01/20/18 17:48 07:30 Sodium 146.9 H 145.6 H Potassium 5.1 H 5.0 Chloride 109 H 108 H Carbon Dioxide 24 26 Anion Gap 14 12 BUN 38 H 31 H Creatinine 1.31 H 1.17 Est GFR ( Amer) > 60 > 60 Est GFR (Non-Af Amer) 55 L > 60 Glucose 199 H 151 H Calcium 9.3 9.4 Assessment & Plan - Diagnosis (1) Hyperkalemia Is this a current diagnosis for this admission?: Yes Plan: Result. This was likely related to patient's acute kidney injury. (2) Acute kidney injury Is this a current diagnosis for this admission?: Yes Plan: Resolved. Patient is tolerating diet and oral intake well. Continue IV fluids. (3) Psychosis Qualifiers: Psychosis type: delusional disorder Qualified Code(s): F22 - Delusional disorders Is this a current diagnosis for this admission?: Yes Plan: Resolved. Discussed case over the phone with Dr. Jara who does not deem patient has bipolar or psychotic disorder. Called patient's sister over the phone who says patient has not been compliant with his Celexa at home. (4) Insulin dependent diabetes mellitus Is this a current diagnosis for this admission?: Yes Plan: Noted blood sugars. Increase Lantus to 40 u HS. (5) Hypertension Qualifiers: Hypertension type: essential hypertension Qualified Code(s): I10 - Essential (primary) hypertension Is this a current diagnosis for this admission?: Yes Plan: Controlled. Continue labetalol. - Time Time Spent with patient: 25-34 minutes Anticipated discharge: Other - Anticipating [facility]. Within: within 24 hours
[2018-01-20] MEDS: INSULIN GLARGINE,HUM.REC.ANLOG 300 UNIT/3 ML INSULN.PEN SUBCUT SCH (22:28)
[2018-01-21 06:03] LABS: ANION GAP 13 (5-19); BLOOD UREA NITROGEN 32 mg/dL (7-20); CALCIUM 9.7 mg/dL (8.4-10.2); CARBON DIOXIDE 26 mmol/L (22-30); CHLORIDE 106 mmol/L (98-107); GLUCOSE 182 mg/dL (75-110); POTASSIUM 4.7 mmol/L (3.6-5.0); SODIUM 144.6 mmol/L (137-145)
[2018-01-21] MEDS: INSULIN LISPRO 100 UNIT/ML 3 ML VIAL SUBCUT PRN ×2 (08:33→12:08)
[2018-01-21] MEDS: BENZTROPINE MESYLATE 1 MG TABLET PO SCH (09:10)
[2018-01-21] MEDS: ENOXAPARIN SODIUM INJ 30 MG/0.3 ML DISP.SYRIN SUBCUT SCH (09:10)
[2018-01-21] MEDS: LABETALOL HCL 200 MG TABLET PO SCH (09:10)
[2018-01-21] MEDS: ASPIRIN 81 MG TABLET, ENT COATED PO SCH (09:10)
--- NOTE | 2018-01-21 12:55 | PSYCHOLOGICAL NOTE ---
Psych Note - Psych Note Psych Note: Reason for Consult: IVC pt to pivot with [facility] and mobile foster care worker. Reports patient is exhibiting bizarre behavior and having suicidal ideation. pt on IVC papers Clinician observes patient to be yelling however is currently directable by [facility] staff. Patient appears to have flight of thought. [facility] deputy disclosed multiple interactions with patient states current presentation is not patient's baseline. Clinician spoke with patient's sister who discloses concern the patient is stabilized and shortly after discharge becomes unstable again. She reports concern patient does not take care of himself (i.e. takes medication for his diabetes, hygiene etc.). Clinician notes while speaking with patient's sister out of side of the room ( not in the line of sight of patient), the patient became very agitated. Patient increased yelling, was pulling at cords and wires and reportedly chewed through a IV hose. 298.9 (F29) unspecified psychotic episode Impression\plan: Patient has been admitted to the floor for medical concerns. Patient will be reevaluated once medical concerns have been resolved. Dr. Jara was consulted and the care management this patient; attending physician is agreement with recommendations and disposition.
--- NOTE | 2018-01-21 13:00 | PSYCHOLOGICAL NOTE ---
Psych Note - Psych Note Psych Note: Reason for Consult: IVC pt to pivot with [facility] and mobile skid [employer] worker. Reports patient is exhibiting bizarre behavior and having suicidal ideation. pt on IVC papers Chart review conducted Patient appears to have improved and is no longer in acute psychosis; some flight of thought is noted by attending physician Clinician spoke with [facility] social service assistant assigned to the patient's case. He disclosed the patient will be recommended for some type of assisted living facility because of his inability or unwillingness to take care of himself. 298.9 (F29) unspecified psychotic episode Impression\plan: Patient was unable to be seen because of patient flow in the emergency department however chart review was conducted and appears patient is no longer in acute psychosis and continues to improve. Patient has signed [facility]PS showed social service assistant who is looking into higher level of care through assisted living. Patient will be reevaluated. Dr. Jara was consulted and the care management this patient.
--- NOTE | 2018-01-21 13:10 | PSYCHOLOGICAL NOTE ---
Psych Note - Psych Note Psych Note: Reason for Consult: IVC pt to pivot with TOMAS and mobile grocery worker. Reports patient is exhibiting bizarre behavior and having suicidal ideation. pt on IVC papers Clinician conducted checking with patient Patient disclosed that he is "ready to go home." He reports that on Thursday he was at his restorationism talking to his apns. He reports he was feeling Very happy and "since I accepted the Lord and my heart" and was singing in the parking lot. He reports that metal pattern maker deputies came up to him to talk to him because of that. When asked about thoughts of wanting to harm himself patient denies stating "I live my life to the fullest... I would never hurt myself." Patient is noted to still have some religion overtones however is not acting out inappropriately. Patient's thought processes are organized and linear, eye contact was well-maintained, patient conducted appropriate conversation. Patient is not demonstrating any behavior indicating acute psychosis. Intellectual abilities appear to be low average range. 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 Patient is no longer exhibiting bizarre behavior denies suicidal ideation. Patient's thought processes are organized and linear and eye contact was well-maintained. Patient is not demonstrating any behavior indicating acute psychosis. It is noted the patient has a history of psychotic episodes or bizarre behaviors that reportedly occur directly after the patient stops caring for himself and taking his medication for diabetes. At this time it appears the patient medical conditions directly correlate with the patient's mental health presentation. Patient has assigned APS showed protective services social worker who is looking into higher level of care through assisted living. Patient will be reevaluated. Dr. Jara was consulted and the care management this patient.
[2018-01-21 14:47] VITALS: BP 127/64
--- NOTE | 2018-01-21 16:25 | PDOC DISCHARGE SUMMARY ---
General - Admit/Disc Date/PCP Admission Date/Primary Care Provider: 01/18/18 16:11 NEERAJ CHRISTIAN MD Discharge Date: 01/21/18 - Discharge Diagnosis (1) Hyperkalemia Is this a current diagnosis for this admission?: Yes (2) Acute kidney injury Is this a current diagnosis for this admission?: Yes (3) Psychosis Is this a current diagnosis for this admission?: Yes (4) Insulin dependent diabetes mellitus Is this a current diagnosis for this admission?: Yes (5) Hypertension Is this a current diagnosis for this admission?: Yes - Additional Information Resuscitation Status: Full Code Discharge Diet: As Tolerated Discharge Activity: Activity As Tolerated Prescriptions: Quetiapine Fumarate [Seroquel Xr] 50 mg PO DAILY 30 Days #30 tab.er.24h Home Medications: Amlodipine Besylate [Norvasc 5 mg Tablet] 5 mg PO DAILY 12/07/17 Aspirin [Adult Low Dose Aspirin EC] 81 mg PO DAILY 12/07/17 Atorvastatin Calcium [Lipitor 20 mg Tablet] 20 mg PO DAILY 12/07/17 Hydralazine HCl 100 mg PO Q12 12/07/17 Isosorbide Mononitrate [Imdur 60 mg Tablet.er] 60 mg PO DAILY 12/07/17 Labetalol HCl [Trandate] 300 mg PO Q12 12/07/17 Lisinopril [Zestril] 40 mg PO DAILY 12/07/17 Metformin HCl [Glucophage] 1,000 mg PO BID 12/07/17 Omeprazole 40 mg PO DAILY 12/07/17 Timolol Maleate [Timoptic 0.5% Oph Soln 5 ml] 1 drop OU DAILY 01/18/18 Insulin Glargine,Hum.rec.anlog [Lantus Insulin 100 Unit/mL] 30 unit SUBCUT QHS insuln.pen 01/21/18 Quetiapine Fumarate [Seroquel Xr] 50 mg PO DAILY 30 Days #30 tab.er.24h History of Present Illness History of Present Illness: MARCOS KAUR is a 62 year old male who had previously been seen in the emergency department 4 days ago for altered mental status which suspected to be a psychiatric issue. He was given some medication recommendations after having been seen by behavioral health and was sent home. He apparently has been having some strange behaviors recently, dating back from the past 6 months, and apparently had an episode in [facility] the other day he had some very strange and agitated behaviors and apparently tried to swim in the baptismal pool. Somehow today he want up on the phone with mobile crisis and told him that he was not going to be here tomorrow, that he was going to tonight, but he did not have any specific details as to how this would happen. He somehow wound up here in the hospital in the emergency department, and was extremely agitated at one point had to be in restraints. He was seen by behavioral health who made some medication recommendations and after several doses of antipsychotics he was able to relax. Some blood was able to be drawn him he was found to be dehydrated and hypokalemic and had ALVARO. Hospital Course Hospital Course: Mr. Kaur he was admitted for hyperkalemia and acute kidney injury. He also had a few episodes of agitation. Patient was evaluated by psych in the ER and was given Haldol and was also started on Cogentin. Patient was also noted to be hypokalemic and dehydrated upon presentation. He was given IV fluids which quickly resolved acute kidney injury. His creatinine went down back to baseline the next day. Hyperkalemia also significantly improved after correction of ALVARO. Patient expressed initial comments of passive suicidal ideation on the first day. However when this was subsequently reassessed over the next few days, patient expressed that he was just joking and he denied any suicidal or homicidal ideations. Patient was reevaluated by psych. Case was disucsse din length with Dr. Jara who did not deem that patient has a psychotic disorder or bipolar disorder. He was also not deemed to warrant inpatient psychiatric treatment or management. Patient was on Celexa before admission but has not been compliant with it. This is apparently for history depression. Psych did recommend a trial of switching it to Seroquel and see how the patient does after a few weeks on Seroquel. Upon discharge, patient, with her sister in the room, expressed that he prefers to follow up with a psychologist outpatient rather than a psychiatrist. He will be going home with his sister. Physical Exam Vital Signs: Temp Pulse Resp BP Pulse Ox 99.2 F 58 L 16 127/64 H 97 01/21/18 14:45 01/21/18 14:45 01/21/18 14:45 01/21/18 14:45 01/21/18 14:45 Intake & Output 01/20/18 01/21/18 01/22/18 06:59 06:59 06:59 Intake Total 2263 1743 375 Output Total 620 Balance 1643 1743 375 Weight 238 lb 5.115 oz 230 lb 13.184 oz General appearance: PRESENT: no acute distress, well-developed, well-nourished Head exam: PRESENT: atraumatic, normocephalic Eye exam: PRESENT: conjunctiva pink, EOMI, PERRLA. ABSENT: scleral icterus Neck exam: ABSENT: carotid bruit, JVD, lymphadenopathy, thyromegaly Respiratory exam: PRESENT: clear to auscultation nan. ABSENT: rales, rhonchi, wheezes Cardiovascular exam: PRESENT: RRR. ABSENT: diastolic murmur, rubs, systolic murmur Pulses: PRESENT: normal dorsalis pedis pul Vascular exam: PRESENT: normal capillary refill GI/Abdominal exam: PRESENT: normal bowel sounds, soft. ABSENT: distended, guarding, mass, organolmegaly, rebound, tenderness Rectal exam: PRESENT: deferred Extremities exam: PRESENT: full ROM. ABSENT: calf tenderness, clubbing, pedal edema Musculoskeletal exam: PRESENT: ambulatory Neurological exam: PRESENT: alert, awake, oriented to person, oriented to place , oriented to time, oriented to situation, CN II-XII grossly intact. ABSENT: motor sensory deficit Psychiatric exam: PRESENT: other - Patient denies any suicidal or homicidal ideation. No delusions or hallucinations. Skin exam: PRESENT: abrasion Results Laboratory Results: 01/21/18 05:16 01/21/18 05:16 Sodium 144.6 Potassium 4.7 Chloride 106 Carbon Dioxide 26 Anion Gap 13 BUN 32 H Creatinine 1.24 Est GFR ( Amer) > 60 Est GFR (Non-Af Amer) 59 L Glucose 182 H Calcium 9.7 Qualifiers - * PATIENT BEING DISCHARGED WITH ANY OF THE FOLLOWING DIAGNOSIS: No VTE patient discharged on overlapping Therapy?: Yes
== END 2018-01-21 15:00 | disposition home or self-care (01) | DRG 683 ==
LOC: ER 07:56 → EH 16:11 → ICU 18:34 → 3S 01-19 18:46
PROVIDERS: ADMIT Internal Medicine; ATTEND Internal Medicine
DX: N17.9 Acute kidney failure, unspecified (principal); I13.0 Hypertensive heart and chronic kidney disease with heart failure and stage 1 through stage 4 chronic kidney disease, or unspecified chronic kidney disease; R45.851 Suicidal ideations; E87.6 Hypokalemia; E86.0 Dehydration; F32.9 Major depressive disorder, single episode, unspecified; E78.00 Pure hypercholesterolemia, unspecified; K21.9 Gastro-esophageal reflux disease without esophagitis; E66.9 Obesity, unspecified; N18.3 Chronic kidney disease, stage 3 (moderate); E11.22 Type 2 diabetes mellitus with diabetic chronic kidney disease; F22 Delusional disorders; E87.5 Hyperkalemia; Z68.30 Body mass index [BMI] 30.0-30.9, adult; Z79.4 Long term (current) use of insulin; Z78.1 Physical restraint status; Z91.14 Patient's other noncompliance with medication regimen; Z88.0 Allergy status to penicillin; Z88.7 Allergy status to serum and vaccine; Z95.5 Presence of coronary angioplasty implant and graft; Z83.3 Family history of diabetes mellitus; Z82.49 Family history of ischemic heart disease and other diseases of the circulatory system
CPT/HCPCS: 36415; 80048; 80053; 80307; 81001; 82550; 82962; 85025; 93005; 93010; 96361; 96372; 96374; 96375; 99291; J0515; J1630; J1650; J1815; J2060; J2680; J3230; J3490; J7030

== ENCOUNTER 2018-02-05 07:14 | Inpatient (IN) | payer MEDICARE ==
[2018-02-05] MEDS ORDERED: ONDANSETRON HCL INJ/PF 4 MG/2 ML SDV IV ONE (08:01)
[2018-02-05] MEDS: ONDANSETRON HCL INJ/PF 4 MG/2 ML SDV ONE ×2 (08:01→08:40)
--- NOTE | 2018-02-05 08:01 | ER Document Report ---
ED GI/ - General Chief Complaint: Vomiting/Diarrhea Stated Complaint: DIARRHEA Time Seen by Provider: 02/05/18 07:34 Notes: 62-year-old male to the emergency department chief complaint of nausea, vomiting , diarrhea. Patient states symptoms have been present for approximately 2 days. Took some Imodium but not getting better. Cannot keep anything down. Feeling very weak and dizzy. Denies any chest pain or shortness of breath at this time. Was recently hospitalized for DKA. TRAVEL OUTSIDE OF THE [place] IN LAST 30 DAYS: No - HPI Patient complains to provider of: Abdominal pain, Diarrhea, Vomiting Onset: Yesterday Timing/Duration: Gradual, Worse Quality of pain: Achy Severity at maximum: Moderate Severity in ED: Moderate Pain Level: 2 Context: denies: Bad food, Lifting, Out of the country travel, , Recent trauma, Other Location: No: Chest pain, Epigastric, Low back, Suprapubic, Left testicle, Right testicle Associated symptoms: Dizzy, Lightheaded, Loss of appetite, Nausea, Sweaty, Vomiting. denies: Syncope - Related Data Allergies/Adverse Reactions: Tetanus Vaccines and Toxoid [Tetanus] Allergy (Mild, Verified 01/18/18 07:57) rash,swelling Penicillins Allergy (Verified 01/18/18 07:57) Past Medical History - General Information source: Patient - Social History Smoking Status: Smoker,Current Status Unk Frequency of alcohol use: None Drug Abuse: None Lives with: Family Family History: Reviewed & Not Pertinent, CAD, DM - Past Medical History Cardiac Medical History: Reports: Hx Congestive Heart Failure, Hx Hypercholesterolemia, Hx Hypertension Denies: Hx Heart Attack Pulmonary Medical History: Denies: Hx Asthma, Hx COPD Neurological Medical History: Denies: Hx Cerebrovascular Accident, Hx Seizures Endocrine Medical History: Reports: Hx Diabetes Mellitus Type 1, Hx Diabetes Mellitus Type 2 Renal/ Medical History: Denies: Hx Peritoneal Dialysis GI Medical History: Reports: Hx Gastroesophageal Reflux Disease. Denies: Hx Hepatitis, Hx Hiatal Hernia, Hx Ulcer Psychiatric Medical History: Reports: Hx Depression Infectious Medical History: Denies: Hx Hepatitis Past Surgical History: Reports: Hx Appendectomy, Hx Cardiac Surgery - stents 2013. Denies: Hx Open Heart Surgery, Hx Pacemaker Review of Systems - Review of Systems Notes: Constitutional: denies: Chills, Diaphoresis, Fever, Malaise, Weakness. Does complain of some dizziness EENT: denies: Eye discharge, Blurred vision, Tearing, Double vision, Nose congestion, Nose discharge, Throat swelling, Mouth pain Cardiovascular: denies: Palpitations, Heart racing, Orthopnea, Dyspnea, Chest pain. Positive for dizziness, low blood pressure Respiratory: denies: Cough, Hurts to breathe, Wheezing, Shortness of breath Gastrointestinal: Positive for diarrhea, vomiting, abdominal cramping. Genitourinary: denies: Burning, Dysuria, Discharge, Frequency, Flank pain, Hematuria Musculoskeletal: denies: Joint pain, Joint swelling, Muscle pain, Muscle stiffness, back pain Hematologic/Lymphatic: denies: Anemia, Easy bleeding, Easy bruising, Blood clots Neurological/Psychological: denies: Confusion, Dementia, Depression, Loss of consciousness Skin: No lesions, no masses, no skin breakdown, no abscesses Physical Exam - Vital signs Vitals: Temp Pulse Resp BP Pulse Ox 98.9 F 65 20 98/50 L 98 02/05/18 07:14 02/05/18 07:14 02/05/18 07:14 02/05/18 07:14 02/05/18 07:14 Interpretation: Hypotensive - General General appearance: Appears well, Alert - HEENT Head: Normocephalic, Atraumatic Eyes: Normal Pupils: PERRL - Respiratory Respiratory status: No respiratory distress Chest status: Nontender Breath sounds: Normal Chest palpation: Normal - Cardiovascular Rhythm: Regular Heart sounds: Normal auscultation Murmur: No - Abdominal Inspection: Normal Distension: Distended - Mild non-tense distention of the abdomen. No guarding or rebound. Bowel sounds: Hyperactive Tenderness: Nontender Organomegaly: No organomegaly - Back Back: Normal, Nontender - Extremities General upper extremity: Normal inspection, Nontender, Normal color, Normal ROM , Normal temperature General lower extremity: Normal inspection, Nontender, Normal color, Normal ROM , Normal temperature, Normal weight bearing. No: Jana's sign - Neurological Neuro grossly intact: Yes Cognition: Normal Orientation: AAOx4 Drummond Coma Scale Eye Opening: Spontaneous Jackelyn Coma Scale Verbal: Oriented Jackelyn Coma Scale Motor: Obeys Commands Jackelyn Coma Scale Total: 15 Speech: Normal Motor strength normal: LUE, RUE, LLE, RLE Sensory: Normal - Psychological Associated symptoms: Normal affect, Normal mood - Skin Skin Temperature: Warm Skin Moisture: Dry Skin Color: Normal Course - Re-evaluation Re-evalutation: 02/05/18 10:44 Patient has hypotension but no tachycardia but beta blocked on labetalol twice daily. Complaining of vomiting and diarrhea. X-ray has some dilated loops of bowel but does not appear to be obstructed however will add CT scan. Patient is in acute renal failure with acute kidney injury. Dehydration. IV fluids 2 bolus given. Zofran given. Will try to collect stool. Anticipate admit. 02/05/18 13:05 IV fluids have been given. Patient is sitting upright. Has occult positive stool. H&H look good at this time but will need be admitted for IV hydration, repeat/serial hemoglobin and hematocrits. Stool culture pending. C. difficile pending. Troponin was slightly elevated at 0.06. This will need to be repeated. I am consulting hospitalist at this time for admission. 02/05/18 13:05 Acute Abdomen Series 02/05/18 08:00 IMPRESSION: NONSPECIFIC BOWEL GAS PATTERN. There are scattered bowel loops with small air fluid levels, peripheral distribution suggesting colonic origin. No distended large or small bowel loops.. Abdomen/Pelvis CT 02/05/18 09:58 IMPRESSION: NO SIGNIFICANT OR ACUTE PROCESS IN THE ABDOMEN OR PELVIS. Laboratory 02/05/18 02/05/18 02/05/18 07:30 07:30 07:30 WBC 13.8 H RBC 3.62 L Hgb 10.6 L Hct 33.1 L MCV 92 MCH 29.2 MCHC 31.9 L RDW 15.0 H Plt Count 346 Seg Neutrophils % 60.2 Lymphocytes % 16.4 Monocytes % 10.3 Eosinophils % 12.7 H Basophils % 0.4 Absolute Neutrophils 8.3 H Absolute Lymphocytes 2.3 Absolute Monocytes 1.4 Absolute Eosinophils 1.8 H Absolute Basophils 0.1 Sodium 146.8 H Potassium 5.6 H Chloride 120 H Carbon Dioxide 15 L Anion Gap 12 BUN 42 H Creatinine 1.97 H Est GFR ( Amer) 42 L Est GFR (Non-Af Amer) 35 L Glucose 113 H Lactic Acid Calcium 9.4 Total Bilirubin 0.1 L Direct Bilirubin 0.1 Neonat Total Bilirubin Not Reportable Neonat Direct Bilirubin Not Reportable Neonat Indirect Bili Not Reportable AST 8 L ALT 17 L Alkaline Phosphatase 97 Creatine Kinase 51 L CK-MB (CK-2) 3.50 Troponin I 0.064 Total Protein 6.2 L Albumin 3.2 L Lipase Urine Color Urine Appearance Urine pH Ur Specific [place] Urine Protein Urine Glucose (UA) Urine Ketones Urine Blood Urine Nitrite Urine Bilirubin Urine Urobilinogen Ur Leukocyte Esterase Urine WBC (Auto) Urine RBC (Auto) U Hyaline Cast (Auto) Squamous Epi Cells Auto Urine Mucus (Auto) Urine Ascorbic Acid Stool Occult Blood 02/05/18 02/05/18 02/05/18 07:30 07:30 09:40 WBC RBC Hgb Hct MCV MCH MCHC RDW Plt Count Seg Neutrophils % Lymphocytes % Monocytes % Eosinophils % Basophils % Absolute Neutrophils Absolute Lymphocytes Absolute Monocytes Absolute Eosinophils Absolute Basophils Sodium Potassium Chloride Carbon Dioxide Anion Gap BUN Creatinine Est GFR ( Amer) Est GFR (Non-Af Amer) Glucose Lactic Acid 1.0 Calcium Total Bilirubin Direct Bilirubin Neonat Total Bilirubin Neonat Direct Bilirubin Neonat Indirect Bili AST ALT Alkaline Phosphatase Creatine Kinase CK-MB (CK-2) Troponin I Total Protein Albumin Lipase 410.6 H Urine Color YELLOW Urine Appearance CLEAR Urine pH 5.0 Ur Specific [place] 1.014 Urine Protein NEGATIVE Urine Glucose (UA) NEGATIVE Urine Ketones NEGATIVE Urine Blood NEGATIVE Urine Nitrite NEGATIVE Urine Bilirubin NEGATIVE Urine Urobilinogen NEGATIVE Ur Leukocyte Esterase NEGATIVE Urine WBC (Auto) 1 Urine RBC (Auto) 0 U Hyaline Cast (Auto) 1 Squamous Epi Cells Auto <1 Urine Mucus (Auto) RARE Urine Ascorbic Acid NEGATIVE Stool Occult Blood 02/05/18 12:30 WBC RBC Hgb Hct MCV MCH MCHC RDW Plt Count Seg Neutrophils % Lymphocytes % Monocytes % Eosinophils % Basophils % Absolute Neutrophils Absolute Lymphocytes Absolute Monocytes Absolute Eosinophils Absolute Basophils Sodium Potassium Chloride Carbon Dioxide Anion Gap BUN Creatinine Est GFR ( Amer) Est GFR (Non-Af Amer) Glucose Lactic Acid Calcium Total Bilirubin Direct Bilirubin Neonat Total Bilirubin Neonat Direct Bilirubin Neonat Indirect Bili AST ALT Alkaline Phosphatase Creatine Kinase CK-MB (CK-2) Troponin I Total Protein Albumin Lipase Urine Color Urine Appearance Urine pH Ur Specific [place] Urine Protein Urine Glucose (UA) Urine Ketones Urine Blood Urine Nitrite Urine Bilirubin Urine Urobilinogen Ur Leukocyte Esterase Urine WBC (Auto) Urine RBC (Auto) U Hyaline Cast (Auto) Squamous Epi Cells Auto Urine Mucus (Auto) Urine Ascorbic Acid Stool Occult Blood POSITIVE - Vital Signs Vital signs: Temp Pulse Resp BP Pulse Ox 98.9 F 65 26 H 108/86 H 97 02/05/18 07:14 02/05/18 07:14 02/05/18 09:32 02/05/18 09:32 02/05/18 09:32 - Laboratory Result Diagrams: 02/05/18 07:30 02/05/18 07:30 Laboratory results interpreted by me: 02/05/18 02/05/18 02/05/18 07:30 07:30 07:30 WBC 13.8 H RBC 3.62 L Hgb 10.6 L Hct 33.1 L MCHC 31.9 L RDW 15.0 H Eosinophils % 12.7 H Absolute Neutrophils 8.3 H Absolute Eosinophils 1.8 H Sodium 146.8 H Potassium 5.6 H Chloride 120 H Carbon Dioxide 15 L BUN 42 H Creatinine 1.97 H Est GFR ( Amer) 42 L Est GFR (Non-Af Amer) 35 L Glucose 113 H Total Bilirubin 0.1 L AST 8 L ALT 17 L Creatine Kinase 51 L Total Protein 6.2 L Albumin 3.2 L Lipase 410.6 H - EKG Interpretation by Me EKG shows normal: Sinus rhythm, [place], Intervals, QRS Complexes, ST-T Waves Critical Care Note - Critical Care Note Total time excluding time spent on procedures (mins): 45 Comments: Hypotension, occult blood, acute renal failure Discharge - Discharge Clinical Impression: Acute kidney injury (nontraumatic), Dehydration Diarrhea Qualifiers: Diarrhea type: unspecified type Qualified Code(s): R19.7 - Diarrhea, unspecified Condition: Good Disposition: ADMITTED INPATIENT Admitting Provider: Hospitalist - [facility] Unit Admitted: Telemetry Referrals: NEERAJ KUHN MD [Primary Care Provider] - Follow up as needed
[2018-02-05] MEDS: NORMAL SALINE 1000 ML 1,000 ML IV PRN ×3 (08:03→21:00)
[2018-02-05 08:13] LABS: ABSOLUTE BASOPHILS # (AUTO) 0.1 10^3/uL (0.0-0.2); ABSOLUTE EOSINOPHILS # (AUTO) 1.8 10^3/uL (0.0-0.6); ABSOLUTE LYMPHOCYTES (AUTO) 2.3 10^3/uL (0.5-4.7); ABSOLUTE MONOCYTES (AUTO) 1.4 10^3/uL (0.1-1.4); ABSOLUTE NEUT (AUTO) 8.3 10^3/uL (1.7-8.2); BASOPHILS % (AUTO) 0.4 % (0-2); EOSINOPHILS % (AUTO) 12.7 % (0-6); HEMATOCRIT 33.1 % (37.9-51.0); HEMOGLOBIN 10.6 g/dL (13.5-17.0); LYMPHOCYTES % (AUTO) 16.4 % (13-45); MEAN CORPUSCULAR HEMOGLOBIN 29.2 pg (27.0-33.4); MEAN CORPUSCULAR HGB CONC 31.9 g/dL (32.0-36.0); MEAN CORPUSCULAR VOLUME 92 fl (80-97); MONOCYTES % (AUTO) 10.3 % (3-13); PLATELET COUNT 346 10^3/uL (150-450); RED BLOOD COUNT 3.62 10^6/uL (4.35-5.55); SEGMENTED NEUTROPHILS % (AUTO) 60.2 % (42-78); TOTAL CELLS COUNTED % (AUTO) 100 %; WHITE BLOOD COUNT 13.8 10^3/uL (4.0-10.5)
[2018-02-05 08:19] LABS: ALANINE AMINOTRANSFERASE 17 U/L (21-72); ALBUMIN 3.2 g/dL (3.5-5.0); ALKALINE PHOSPHATASE 97 U/L (38-126); ANION GAP 12 (5-19); ASPARTATE AMINO TRANSFERASE 8 U/L (17-59); BILIRUBIN,DIRECT 0.1 mg/dL (0.0-0.4); BILIRUBIN,TOTAL 0.1 mg/dL (0.2-1.3); BLOOD UREA NITROGEN 42 mg/dL (7-20); CALCIUM 9.4 mg/dL (8.4-10.2); CARBON DIOXIDE 15 mmol/L (22-30); CHLORIDE 120 mmol/L (98-107); CREATINE KINASE 51 U/L (55-170); GLUCOSE 113 mg/dL (75-110); POTASSIUM 5.6 mmol/L (3.6-5.0); SODIUM 146.8 mmol/L (137-145); TOTAL PROTEIN 6.2 g/dL (6.3-8.2)
[2018-02-05 08:27] LABS: CREATINE KINASE MB 3.5 ng/mL (<4.55)
[2018-02-05 08:34] LABS: TROPONIN I 0.064 ng/mL
[2018-02-05] MEDS ORDERED: ASPIRIN 81 MG TABLET, CHEWABLE PO ONE (08:42)
--- NOTE | 2018-02-05 09:10 | RADIOLOGY REPORT (SQ) ---
EXAM DESCRIPTION: ACUTE ABDOMEN SERIES COMPLETED DATE/TIME: 02/05/2018 8:58 am REASON FOR STUDY: abd pain, vomiting COMPARISON: 12/06/2017 NUMBER OF VIEWS: Three views. TECHNIQUE: PA chest, supine abdomen and upright/decubitus abdomen radiographic images acquired. LIMITATIONS: None. FINDINGS: CHEST: Chronic opacity in the left lateral lung base. FREE AIR: None. No abnormal gas collections. BOWEL GAS PATTERN: There are scattered bowel loops with small air fluid levels, peripheral distributi on suggesting colonic origin. No distended large or small bowel loops. CALCIFICATIONS: No suspicious calcifications. HARDWARE: None in the abdomen. SOFT TISSUES: No gross mass or suggestion of organomegaly. BONES: No acute fracture. No worrisome bone lesions. OTHER: No other significant finding. IMPRESSION: NONSPECIFIC BOWEL GAS PATTERN. There are scattered bowel loops with small air fluid lev els, peripheral distribution suggesting colonic origin. No distended large or small bowel loops.. TECHNICAL DOCUMENTATION: JOB ID: [id number] [employer]- All Rights Reserved Reading location - IP/workstation name: [email or web address]
[2018-02-05 10:30] LABS: APPEARANCE,URINE CLEAR; BILIRUBIN,URINE NEGATIVE (NEGATIVE); COLOR,URINE YELLOW; GLUCOSE, URINE NEGATIVE (NEGATIVE); KETONES,URINE NEGATIVE (NEGATIVE); LEUKOCYTE ESTERASE,URINE NEGATIVE (NEGATIVE); NITRITE,URINE NEGATIVE (NEGATIVE); PROTEIN,URINE NEGATIVE (NEGATIVE); URINE SPECIFIC GRAVITY 1.014; UROBILINOGEN,URINE NEGATIVE mg/dL (<2.0)
[2018-02-05] MEDS ORDERED: DEXTROSE 5%-1/2 NORMAL SALINE 1,000 ML IV ONE (11:27)
--- NOTE | 2018-02-05 12:28 | EKG REPORT ---
SEVERITY:- NORMAL ECG - SINUS RHYTHM : Confirmed by: Bo Saunders MD 05-Feb-2018 12:27:57
--- NOTE | 2018-02-05 13:02 | RADIOLOGY REPORT (SQ) ---
EXAM DESCRIPTION: CT ABD/PELVIS ORAL ONLY COMPLETED DATE/TIME: 02/05/2018 12:40 pm REASON FOR STUDY: abd xray abnormal COMPARISON: CT abdomen pelvis 05/03/2015 TECHNIQUE: CT scan of the abdomen and pelvis performed without intravenous contrast. Patient drank oral contrast. Images reviewed with lung, soft tissue, and bone windows. Reconstructed coronal and s agittal MPR images reviewed. All images stored on PACS. All CT scanners at this facility use dose modulation, iterative reconstruction, and/or weight based d osing when appropriate to reduce radiation dose to as low as reasonably achievable (ALARA). [facility]: Dose Right [facility]: CareDose [facility]: Dose Right [facility]: Teradose 4D [facility]: Smart Workpop RADIATION DOSE: CT Rad equipment meets quality standard of care and radiation dose reduction techniq ues were employed. CTDIvol: 18.8 mGy. DLP: 1182 mGy-cm.mGy. LIMITATIONS: None. FINDINGS: LOWER CHEST: There is chronic appearing rounded atelectasis in the right and left posterio r costophrenic sulci, with chronic trace pleural effusions with thick peripheral rim. These are unch anged since 2014. NON-CONTRASTED LIVER, SPLEEN, ADRENALS: Evaluation limited by lack of IV contrast. No identified sign ificant masses. PANCREAS: No masses. No peripancreatic inflammatory changes. GALLBLADDER: No identified stones by CT criteria. No inflammatory changes to suggest cholecystitis. RIGHT KIDNEY AND URETER: No suspicious masses. Assessment limited by lack of IV contrast. Arterial vascular calcifications are present at the right renal hilum. No definite collecting system stones. No hydronephrosis or hydroureter. LEFT KIDNEY AND URETER: No suspicious masses. Assessment limited by lack of IV contrast. Atheroscle rotic arterial vascular calcifications are present. Question 2 mm left upper pole intrarenal nonobst ructive stone. No hydronephrosis or hydroureter. AORTA AND RETROPERITONEUM: No aneurysm. No retroperitoneal masses or adenopathy. BOWEL AND PERITONEAL CAVITY: No obvious masses or inflammatory changes. No free fluid. APPENDIX: Normal. PELVIS, BLADDER, AND ABDOMINAL WALL:No abnormal masses. No free fluid. Bladder normal. Tiny fat cont aining umbilical hernia. BONES: No significant findings. OTHER: No other significant finding. IMPRESSION: NO SIGNIFICANT OR ACUTE PROCESS IN THE ABDOMEN OR PELVIS. COMMENT: Quality ID # [id number]: Final reports with documentation of one or more dose reduction techniques (e.g., Automated exposure control, adjustment of the mA and/or kV according to patient size, use of iterative reconstruction technique) TECHNICAL DOCUMENTATION: JOB ID: [id number] [employer]- All Rights Reserved Reading location - IP/workstation name: [email or web address]
[2018-02-05] MEDS ORDERED: PANTOPRAZOLE SODIUM 40 MG VIAL IV PRN (13:12)
[2018-02-05] MEDS ORDERED: DEXTROSE 50%-WATER 25 GM/50 ML DISP.SYRIN IV ONE ×2 (14:08→14:15)
[2018-02-05] MEDS ORDERED: ONDANSETRON HCL INJ/PF 4 MG/2 ML SDV IV PRN (14:22)
[2018-02-05] MEDS ORDERED: DEXTROSE 50%-WATER 25 GM/50 ML DISP.SYRIN IV PRN ×2 (14:31)
[2018-02-05] MEDS ORDERED: DEXTROSE 40% GEL 15 GM TUBE PO PRN ×2 (14:31)
[2018-02-05] MEDS ORDERED: GLUCAGON,HUMAN RECOMB 1 MG INJ IM PRN (14:31)
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
[2018-02-05] MEDS: CIPROFLOXACIN 400 MG/D5W RTU 400 MG/200 ML RTUPB IV SCH (17:02)
[2018-02-05] MEDS: METRONIDAZOLE 500 MG/NS RTU 500 MG/100 ML RTUPB IV SCH (18:10)
[2018-02-05] MEDS ORDERED: PANTOPRAZOLE SODIUM 40 MG VIAL IV SCH (22:00)
[2018-02-05] MEDS: HEPARIN SOD (PORCINE) 5,000 UNIT/ML 1 ML SYRINGE SUBCUT SCH (22:04)
[2018-02-06] MEDS: METRONIDAZOLE 500 MG/NS RTU 500 MG/100 ML RTUPB IV SCH ×5 (00:27→23:43)
[2018-02-06] MEDS: CIPROFLOXACIN 400 MG/D5W RTU 400 MG/200 ML RTUPB IV SCH ×2 (04:31→15:27)
[2018-02-06] MEDS: HEPARIN SOD (PORCINE) 5,000 UNIT/ML 1 ML SYRINGE SUBCUT SCH (05:21)
[2018-02-06] MEDS: LANSOPRAZOLE 30 MG TAB.RAP.DR PO SCH ×2 (05:21→16:22)
[2018-02-06 05:34] LABS: HEMATOCRIT 31.5 % (37.9-51.0); HEMOGLOBIN 10.2 g/dL (13.5-17.0); MEAN CORPUSCULAR HEMOGLOBIN 29.4 pg (27.0-33.4); MEAN CORPUSCULAR HGB CONC 32.4 g/dL (32.0-36.0); MEAN CORPUSCULAR VOLUME 91 fl (80-97); PLATELET COUNT 313 10^3/uL (150-450); RED BLOOD COUNT 3.47 10^6/uL (4.35-5.55); RED CELL DISTRIBUTION WIDTH 14.9 % (11.5-14.0); WHITE BLOOD COUNT 11.3 10^3/uL (4.0-10.5)
[2018-02-06 05:52] LABS: ANION GAP 13 (5-19); BLOOD UREA NITROGEN 30 mg/dL (7-20); CALCIUM 8.5 mg/dL (8.4-10.2); CARBON DIOXIDE 14 mmol/L (22-30); CHLORIDE 119 mmol/L (98-107); GLUCOSE 133 mg/dL (75-110); POTASSIUM 5.2 mmol/L (3.6-5.0); SODIUM 145.5 mmol/L (137-145)
[2018-02-06 06:21] LABS: ABSOLUTE LYMPHOCYTES# (MANUAL) 1.8 10^3/uL (0.5-4.7); ABSOLUTE MONOCYTES # (MANUAL) 1.2 10^3/uL (0.1-1.4); ABSOLUTE NEUTROPHILS# (MANUAL) 6.2 10^3/uL (1.7-8.2); BAND NEUTROPHILS % (MANUAL) 1 % (3-5); BASOPHILS % (MANUAL) 0 % (0-2); EOSINOPHILS % (MANUAL) 18 % (0-6); LYMPHOCYTES % (MANUAL) 16 % (13-45); MONOCYTES % (MANUAL) 11 % (3-13); SEGMENTED NEUTROPHILS % (MAN) 54 % (42-78); TOTAL CELLS COUNTED 100
[2018-02-06 06:22] LABS: ANISOCYTOSIS SLIGHT; HYPOCHROMASIA 1+; PLATELET COMMENT ADEQUATE
[2018-02-06] MEDS: NORMAL SALINE 1000 ML 1,000 ML IV PRN ×2 (09:29→17:59)
--- NOTE | 2018-02-06 14:46 | PDOC CONSULTATION ---
Consultation Consult Date: 02/06/18 Consult reason:: Nausea, vomiting, diarrhea, heme positive stool History of Present Illness Admission Date/PCP: 02/05/18 13:14 NEERAJ KUHN MD History of Present Illness: MARCOS JOSHI is a 62 year old male seen at the request of the hospitalist service. The patient is a one-week history of nausea, vomiting, diarrhea, and melanotic stool. The patient reports having melanotic stool on and off over the last several years. The patient has seen Dr. Hendrickson in the past for gastroenterology related problems. The patient has had EGD and colonoscopy as recently as 1-2 years ago per his report. He denies abdominal pain, hematochezia, hematemesis, chest pain, shortness of breath, headache, dizziness. The patient does report fatigue, malaise, melena, diarrhea, nausea, vomiting. His difficulties began last weekend after eating "Pashto food". The patient denies consumption of raw or undercooked foods. The patient reports having multiple bowel movements per day with extreme fecal urgency. The patient denies any recent antibiotics. The patient does have severe reflux and reports that he cannot eat "spicy foods". The patient denies any history of alcohol consumption. Patient denies a history of liver disease. The patient does consume a mild to moderate amount of nonsteroidal anti- inflammatory drugs. He denies nicotine use, steroid use. Past Medical History Cardiac Medical History: Reports: Congestive Heart Failure, Hyperlipidema, Hypertension Denies: Myocardial Infarction Pulmonary Medical History: Denies: Asthma, Chronic Obstructive Pulmonary Disease (COPD) Neurological Medical History: Denies: Seizures Endocrine Medical History: Reports: Diabetes Mellitus Type 1, Diabetes Mellitus Type 2 GI Medical History: Reports: Gastroesophageal Reflux Disease Denies: Hepatitis, Hiatal Hernia Psychiatric Medical History: Reports: Depression Hematology: Denies: Anemia, Sickle Cell Disease Past Surgical History Past Surgical History: Reports: Appendectomy Denies: Pacemaker Social History Lives with: Family Smoking Status: Former Smoker Last Time Smoked: 1972 Frequency of Alcohol Use: None Hx Recreational Drug Use: No Drugs: None Hx Prescription Drug Abuse: No Family History Family History: Reviewed & Not Pertinent, CAD, DM, Other - Gallbladder disease in mother and brother Parental Family History Reviewed: Yes Children Family History Reviewed: Yes Sibling(s) Family History Reviewed.: Yes Medication/Allergy Home Medications: Amlodipine Besylate [Norvasc 5 mg Tablet] 5 mg PO DAILY 12/07/17 Aspirin [Adult Low Dose Aspirin EC] 81 mg PO DAILY 12/07/17 Atorvastatin Calcium [Lipitor 20 mg Tablet] 20 mg PO DAILY 12/07/17 Hydralazine HCl 100 mg PO Q12 12/07/17 Isosorbide Mononitrate [Imdur 60 mg Tablet.er] 60 mg PO DAILY 12/07/17 Labetalol HCl [Trandate] 300 mg PO Q12 12/07/17 Lisinopril [Zestril] 40 mg PO DAILY 12/07/17 Metformin HCl [Glucophage] 1,000 mg PO BID 12/07/17 Omeprazole 40 mg PO DAILY 12/07/17 Timolol Maleate [Timoptic 0.5% Oph Soln 5 ml] 1 drop OU DAILY 01/18/18 Quetiapine Fumarate [Seroquel Xr] 50 mg PO DAILY 30 Days #30 tab.er.24h Insulin Glargine,Hum.rec.anlog [Lantus Insulin 100 Unit/mL] 50 unit SUBCUT BID 02/05/18 Allergies/Adverse Reactions: Tetanus Vaccines and Toxoid [Tetanus] Allergy (Mild, Verified 01/18/18 07:57) rash,swelling Penicillins Allergy (Verified 01/18/18 07:57) Review of Systems Constitutional: ABSENT: chills, fever(s) Eyes: ABSENT: visual disturbances Ears: ABSENT: hearing changes Nose, Mouth, and Throat: ABSENT: sore throat Cardiovascular: ABSENT: chest pain Respiratory: ABSENT: dyspnea, hemoptysis Gastrointestinal: PRESENT: diarrhea, heartburn, melena, nausea, vomiting. ABSENT: abdominal pain, hematemesis, hematochezia Musculoskeletal: ABSENT: back pain Integumentary: ABSENT: pruritus, rash Neurological: ABSENT: confusion, convulsions, memory loss Psychiatric: ABSENT: anxiety, depression Endocrine: ABSENT: cold intolerance, heat intolerance Hematologic/Lymphatic: ABSENT: easy bleeding, easy bruising Physical Exam Vital Signs: Temp Pulse Resp BP Pulse Ox 97.8 F 64 16 135/63 H 97 02/06/18 11:16 02/06/18 11:16 02/06/18 11:16 02/06/18 11:16 02/06/18 11:16 Intake & Output 02/05/18 02/06/18 02/07/18 06:59 06:59 06:59 Intake Total 2177 1554 Output Total 200 Balance 1977 155 Weight 111.5 kg General appearance: PRESENT: no acute distress Head exam: PRESENT: atraumatic, normocephalic Eye exam: PRESENT: EOMI, PERRLA. ABSENT: scleral icterus Mouth exam: PRESENT: neck supple Neck exam: ABSENT: meningismus, tenderness, thyromegaly, tracheal deviation Respiratory exam: PRESENT: unlabored. ABSENT: accessory muscle use, chest wall tenderness, tachypnea, wheezes Cardiovascular exam: PRESENT: RRR Pulses: PRESENT: normal radial pulses Vascular exam: PRESENT: normal capillary refill. ABSENT: pallor GI/Abdominal exam: PRESENT: hernia - Small umbilical, other - Obese. ABSENT: distended, guarding, tenderness Rectal exam: PRESENT: deferred Gentrourinary exam: ABSENT: ecchymosis, erythema Extremities exam: ABSENT: clubbing Musculoskeletal exam: ABSENT: deformity Neurological exam: PRESENT: alert, awake, oriented to person, oriented to place , oriented to time, oriented to situation, CN II-XII grossly intact Psychiatric exam: ABSENT: agitated, anxious, depressed Focused psych exam: ABSENT: delusional Skin exam: ABSENT: cyanosis, erythema, jaundice Results Laboratory Results: 02/06/18 04:42 02/06/18 04:42 02/05/18 02/06/18 02/06/18 14:11 04:42 04:42 WBC 11.3 H RBC 3.47 L Hgb 10.2 L Hct 31.5 L MCV 91 MCH 29.4 MCHC 32.4 RDW 14.9 H Plt Count 313 Seg Neutrophils % Not Reportable Lymphocytes % Not Reportable Monocytes % Not Reportable Eosinophils % Not Reportable Basophils % Not Reportable Absolute Neutrophils Not Reportable Absolute Lymphocytes Not Reportable Absolute Monocytes Not Reportable Absolute Eosinophils Not Reportable Absolute Basophils Not Reportable Sodium 145.5 H Potassium 5.2 H Chloride 119 H Carbon Dioxide 14 L Anion Gap 13 BUN 30 H Creatinine 1.41 H Est GFR ( Amer) > 60 Est GFR (Non-Af Amer) 51 L Glucose 133 H Calcium 8.5 Blood Type A POSITIVE Antibody Screen NEGATIVE Impressions: Acute Abdomen Series 02/05/18 08:00 IMPRESSION: NONSPECIFIC BOWEL GAS PATTERN. There are scattered bowel loops with small air fluid levels, peripheral distribution suggesting colonic origin. No distended large or small bowel loops.. Abdomen/Pelvis CT 02/05/18 09:58 IMPRESSION: NO SIGNIFICANT OR ACUTE PROCESS IN THE ABDOMEN OR PELVIS. Status: Image reviewed by me Assessment & Plan - Diagnosis (1) Melena Is this a current diagnosis for this admission?: Yes (2) Nausea and vomiting Qualifiers: Vomiting type: unspecified Vomiting Intractability: non-intractable Qualified Code(s): R11.2 - Nausea with vomiting, unspecified Is this a current diagnosis for this admission?: Yes - Plan Summary Plan Summary: This is a 62-year-old male with nausea, vomiting, diarrhea, and melanotic stool. The patient sees Dr. Hendrickson for his gastroenterology care. The patient is requesting to see him as an outpatient for possible EGD and colonoscopy. I have encouraged the patient that this will help determine the cause of his occult GI bleeding. The patient also had elevation of his lipase on admission. I will recheck his lipase today, and check a gallbladder ultrasound to ensure that the patient is not experiencing biliary pancreatitis. I have personally reviewed the patient's CT scan images, abdominal x-ray images, chest x-ray images, and lab work. I will follow this patient very closely with you.
--- NOTE | 2018-02-06 14:59 | PDOC PROGRESS REPORT ---
Subjective Progress Note for:: 02/06/18 Subjective:: This is 61 years old male patient with multiple comorbidities presented with chief complaint of intractable nausea vomiting and diarrhea. With impression of dehydration, acute on chronic kidney injury, gastroenteritis and hyperkalemia patient admitted with inpatient status. He has been managed with IV hydration, IV antibiotics namely Cipro and Flagyl. This morning I seen patient while walking on the hallway and he reports this is feeling better the diarrhea is improving and the nausea and vomiting has subsided. Upon reviewing his lab results this is white cell count has trended down from 13.8-11.3. And his potassium from 5.6-5.2 and his creatinine from 1.97-1.4. Reason For Visit: ACUTE PANCREATITIS,INTRACTABLE NAUSEA,VOMITING, Physical Exam Vital Signs: Temp Pulse Resp BP Pulse Ox 97.8 F 64 16 135/63 H 97 02/06/18 11:16 02/06/18 11:16 02/06/18 11:16 02/06/18 11:16 02/06/18 11:16 Intake & Output 02/05/18 02/06/18 02/07/18 06:59 06:59 06:59 Intake Total 2177 1554 Output Total 200 Balance 1977 1554 Weight 111.5 kg General appearance: PRESENT: no acute distress Eye exam: PRESENT: conjunctiva pink Mouth exam: PRESENT: moist Respiratory exam: PRESENT: clear to auscultation nan. ABSENT: rales, rhonchi, wheezes Cardiovascular exam: PRESENT: RRR. ABSENT: diastolic murmur, rubs, systolic murmur GI/Abdominal exam: PRESENT: normal bowel sounds, soft. ABSENT: distended, guarding, mass, organolmegaly, rebound, tenderness Musculoskeletal exam: PRESENT: other - Bilateral leg scratch pena and crusted lesions Neurological exam: PRESENT: alert, awake, oriented to time, oriented to situation Results Laboratory Results: 02/06/18 04:42 02/06/18 04:42 02/05/18 02/06/18 02/06/18 14:11 04:42 04:42 WBC 11.3 H RBC 3.47 L Hgb 10.2 L Hct 31.5 L MCV 91 MCH 29.4 MCHC 32.4 RDW 14.9 H Plt Count 313 Seg Neutrophils % Not Reportable Lymphocytes % Not Reportable Monocytes % Not Reportable Eosinophils % Not Reportable Basophils % Not Reportable Absolute Neutrophils Not Reportable Absolute Lymphocytes Not Reportable Absolute Monocytes Not Reportable Absolute Eosinophils Not Reportable Absolute Basophils Not Reportable Sodium 145.5 H Potassium 5.2 H Chloride 119 H Carbon Dioxide 14 L Anion Gap 13 BUN 30 H Creatinine 1.41 H Est GFR ( Amer) > 60 Est GFR (Non-Af Amer) 51 L Glucose 133 H Calcium 8.5 Blood Type A POSITIVE Antibody Screen NEGATIVE Impressions: Acute Abdomen Series 02/05/18 08:00 IMPRESSION: NONSPECIFIC BOWEL GAS PATTERN. There are scattered bowel loops with small air fluid levels, peripheral distribution suggesting colonic origin. No distended large or small bowel loops.. Abdomen/Pelvis CT 02/05/18 09:58 IMPRESSION: NO SIGNIFICANT OR ACUTE PROCESS IN THE ABDOMEN OR PELVIS. Assessment & Plan - Diagnosis (1) Acute pancreatitis Qualifiers: Acute pancreatitis complication: unspecified Is this a current diagnosis for this admission?: Yes Plan: Gentle hydration and pain management. (2) Intractable nausea vomiting and diarrhea Is this a current diagnosis for this admission?: Yes Plan: Resolving (3) Gastroenteritis Is this a current diagnosis for this admission?: Yes Plan: Resolving (4) ALVARO also CKD due to dehydration Is this a current diagnosis for this admission?: Yes Plan: Improving (5) Mild hyperkalemia Is this a current diagnosis for this admission?: Yes Plan: Improving (6) Coronary artery disease status post sten Is this a current diagnosis for this admission?: Yes Plan: No chest pain. Continue home medications (7) Type 1 diabetes mellitus Is this a current diagnosis for this admission?: Yes Plan: Continue sliding scale and home medication. (8) Hypertension Qualifiers: Hypertension type: essential hypertension Qualified Code(s): I10 - Essential (primary) hypertension Is this a current diagnosis for this admission?: Yes Plan: Continue home medication (9) Hyperlipidemia Qualifiers: Hyperlipidemia type: unspecified Qualified Code(s): E78.5 - Hyperlipidemia , unspecified Is this a current diagnosis for this admission?: Yes Plan: Continue home medication
--- NOTE | 2018-02-06 15:32 | RADIOLOGY REPORT (SQ) ---
EXAM DESCRIPTION: U/S ABDOMEN LIMITED W/O DOP COMPLETED DATE/TIME: 02/06/2018 3:19 pm REASON FOR STUDY: nausea, vomiting, pancreatitis COMPARISON: CT abdomen and pelvis 02/05/2018 TECHNIQUE: Dynamic and static grayscale images acquired of the abdomen and recorded on PACS. Additio nal selected color Doppler and spectral images recorded. LIMITATIONS: Body habitus and intervening bowel gas precludes adequate evaluation of the pancreas an d proximal aorta. FINDINGS: PANCREAS: Not visualized. LIVER: Hepatic steatosis. No masses. LIVER VASCULATURE: Normal directional flow of the main portal vein and hepatic veins. GALLBLADDER: No stones. Normal wall thickness. No pericholecystic fluid. ULTRASOUND-DETECTED RONDON'S SIGN: Negative. INTRAHEPATIC DUCTS AND COMMON DUCT: CBD and intrahepatic ducts normal caliber. No filling defects. INFERIOR VENA CAVA: Normal flow. AORTA: The mid and distal aorta demonstrates normal contour and caliber. RIGHT KIDNEY: Normal size. Normal echogenicity. No solid or suspicious masses. No hydronephrosis. No calcifications. PERITONEAL AND RIGHT PLEURAL SPACE: No ascites or effusions. OTHER: No other significant findings. IMPRESSION: Limited evaluation with nonvisualization of the pancreas and proximal aorta. Hepatic st eatosis. Otherwise unremarkable sonographic evaluation. TECHNICAL DOCUMENTATION: JOB ID: [id number] [employer]- All Rights Reserved Reading location - IP/workstation name: [email or web address]
[2018-02-06] MEDS: INSULIN GLARGINE,HUM.REC.ANLOG 1,000 UNIT/10 ML UNIT SUBCUT SCH (17:32)
[2018-02-06] MEDS ORDERED: INSULIN GLARGINE,HUM.REC.ANLOG 300 UNIT/3 ML INSULN.PEN SUBCUT SCH (18:00)
[2018-02-06] MEDS: ACETAMINOPHEN 325 MG TABLET PO PRN (20:50)
[2018-02-06] MEDS: QUETIAPINE FUMARATE 25 MG TABLET PO SCH (21:03)
[2018-02-06] MEDS: HYDRALAZINE HCL 50 MG TABLET PO SCH (21:04)
[2018-02-06] MEDS ORDERED: (PENDING PHARMACY ID) (Hydralazine Hcl [Hydralazine Hcl] 100 MG) PO SCH (22:00)
[2018-02-07] MEDS: CIPROFLOXACIN 400 MG/D5W RTU 400 MG/200 ML RTUPB IV SCH ×2 (04:09→15:11)
[2018-02-07] MEDS: NORMAL SALINE 1000 ML 1,000 ML IV PRN ×3 (04:12→21:39)
[2018-02-07 04:52] LABS: ABSOLUTE BASOPHILS # (AUTO) 0.1 10^3/uL (0.0-0.2); ABSOLUTE EOSINOPHILS # (AUTO) 2.2 10^3/uL (0.0-0.6); ABSOLUTE LYMPHOCYTES (AUTO) 3.1 10^3/uL (0.5-4.7); ABSOLUTE MONOCYTES (AUTO) 1.1 10^3/uL (0.1-1.4); ABSOLUTE NEUT (AUTO) 4.8 10^3/uL (1.7-8.2); BASOPHILS % (AUTO) 0.5 % (0-2); EOSINOPHILS % (AUTO) 19.3 % (0-6); HEMATOCRIT 30.9 % (37.9-51.0); HEMOGLOBIN 10.2 g/dL (13.5-17.0); LYMPHOCYTES % (AUTO) 27.4 % (13-45); MEAN CORPUSCULAR HEMOGLOBIN 29.6 pg (27.0-33.4); MEAN CORPUSCULAR VOLUME 90 fl (80-97); MONOCYTES % (AUTO) 9.9 % (3-13); PLATELET COUNT 311 10^3/uL (150-450); RED BLOOD COUNT 3.44 10^6/uL (4.35-5.55); RED CELL DISTRIBUTION WIDTH 15.1 % (11.5-14.0); SEGMENTED NEUTROPHILS % (AUTO) 42.9 % (42-78); TOTAL CELLS COUNTED % (AUTO) 100 %; WHITE BLOOD COUNT 11.3 10^3/uL (4.0-10.5)
[2018-02-07 05:17] LABS: ANION GAP 10 (5-19); BLOOD UREA NITROGEN 25 mg/dL (7-20); CALCIUM 9.5 mg/dL (8.4-10.2); CARBON DIOXIDE 20 mmol/L (22-30); CHLORIDE 117 mmol/L (98-107); GLUCOSE 81 mg/dL (75-110); LIPASE 84.6 U/L (23-300); POTASSIUM 4.6 mmol/L (3.6-5.0); SODIUM 147.4 mmol/L (137-145)
[2018-02-07] MEDS: METRONIDAZOLE 500 MG/NS RTU 500 MG/100 ML RTUPB IV SCH ×4 (05:44→23:40)
[2018-02-07] MEDS: LANSOPRAZOLE 30 MG TAB.RAP.DR PO SCH ×2 (05:44→17:29)
[2018-02-07] MEDS: INSULIN GLARGINE,HUM.REC.ANLOG 1,000 UNIT/10 ML UNIT SUBCUT SCH ×2 (09:56→17:25)
[2018-02-07] MEDS ORDERED: (PENDING PHARMACY ID) (Quetiapine Fumarate [Seroquel Xr] 50 MG) PO SCH (10:00)
[2018-02-07] MEDS ORDERED: ATORVASTATIN CALCIUM 20 MG TABLET PO SCH (10:00)
[2018-02-07] MEDS: HYDRALAZINE HCL 50 MG TABLET PO SCH ×2 (10:21→21:39)
[2018-02-07] MEDS: ASPIRIN 81 MG TABLET, ENT COATED PO SCH (10:22)
[2018-02-07] MEDS: AMLODIPINE BESYLATE 5 MG TABLET PO SCH (10:22)
--- NOTE | 2018-02-07 11:38 | PDOC PROGRESS REPORT ---
Subjective Progress Note for:: 02/07/18 Subjective:: This is a 62-year-old male with diarrhea and melena. Patient reports that he is feeling better today, and his diarrhea has improved. He denies any chest pain, shortness of breath, fevers, chills, nausea, vomiting, abdominal pain, dizziness, orthostasis, blurry vision, headache. He does still have loose stools, however they are more solid today. Reason For Visit: ACUTE PANCREATITIS,INTRACTABLE NAUSEA,VOMITING, Physical Exam Vital Signs: Temp Pulse Resp BP Pulse Ox 97.5 F 63 20 141/66 H 96 02/07/18 07:18 02/07/18 07:18 02/07/18 07:18 02/07/18 07:18 02/07/18 07:18 Intake & Output 02/06/18 02/07/18 02/08/18 06:59 06:59 06:59 Intake Total 2177 4994 710 Output Total 200 Balance 1977 4994 710 Weight 111.5 kg 107.4 kg General appearance: PRESENT: no acute distress Head exam: PRESENT: atraumatic, normocephalic Eye exam: PRESENT: EOMI, PERRLA Neck exam: ABSENT: meningismus, tenderness, thyromegaly, tracheal deviation Respiratory exam: PRESENT: unlabored. ABSENT: chest wall tenderness, tachypnea , wheezes Pulses: PRESENT: normal radial pulses Vascular exam: PRESENT: normal capillary refill. ABSENT: pallor GI/Abdominal exam: PRESENT: soft. ABSENT: distended, tenderness Rectal exam: PRESENT: deferred Musculoskeletal exam: PRESENT: ambulatory. ABSENT: deformity Neurological exam: PRESENT: alert, awake, oriented to person, oriented to place , oriented to time, oriented to situation, CN II-XII grossly intact Psychiatric exam: ABSENT: agitated, anxious Focused psych exam: ABSENT: delusional Skin exam: ABSENT: cyanosis, erythema, jaundice Results Laboratory Results: 02/07/18 04:10 02/07/18 04:10 02/06/18 02/07/18 02/07/18 04:42 04:10 04:10 WBC 11.3 H RBC 3.44 L Hgb 10.2 L Hct 30.9 L MCV 90 MCH 29.6 MCHC 33.0 RDW 15.1 H Plt Count 311 Seg Neutrophils % 42.9 Lymphocytes % 27.4 Monocytes % 9.9 Eosinophils % 19.3 H Basophils % 0.5 Absolute Neutrophils 4.8 Absolute Lymphocytes 3.1 Absolute Monocytes 1.1 Absolute Eosinophils 2.2 H Absolute Basophils 0.1 Sodium 147.4 H Potassium 4.6 Chloride 117 H Carbon Dioxide 20 L Anion Gap 10 BUN 25 H Creatinine 1.30 H Est GFR ( Amer) > 60 Est GFR (Non-Af Amer) 56 L Glucose 81 Calcium 9.5 Lipase 100.5 84.6 Impressions: Acute Abdomen Series 02/05/18 08:00 IMPRESSION: NONSPECIFIC BOWEL GAS PATTERN. There are scattered bowel loops with small air fluid levels, peripheral distribution suggesting colonic origin. No distended large or small bowel loops.. Abdomen/Pelvis CT 02/05/18 09:58 IMPRESSION: NO SIGNIFICANT OR ACUTE PROCESS IN THE ABDOMEN OR PELVIS. Abdomen Ultrasound 02/06/18 00:00 IMPRESSION: Limited evaluation with nonvisualization of the pancreas and proximal aorta. Hepatic steatosis. Otherwise unremarkable sonographic evaluation. Assessment & Plan - Diagnosis (1) Melena Is this a current diagnosis for this admission?: Yes (2) Nausea and vomiting Qualifiers: Vomiting type: unspecified Vomiting Intractability: non-intractable Qualified Code(s): R11.2 - Nausea with vomiting, unspecified Is this a current diagnosis for this admission?: Yes - Plan Summary Plan Summary: This is a 62-year-old male who follows with Dr. Hendrickson. She does report melena and vomiting. Believe the patient would benefit from EGD and colonoscopy. I will have him follow-up with Dr. Hendrickson as an outpatient. Patient's gallbladder ultrasound is normal, and his recent lipase is normal. I can find no indication for surgery at this time. I will see the patient again on an as- needed basis. I have encouraged him to contact me immediately with any new questions or concerns.
--- NOTE | 2018-02-07 12:37 | PDOC PROGRESS REPORT ---
Subjective Progress Note for:: 02/07/18 Subjective:: Patient seen lying in bed comfortably. He is not in pain or any form of cardiorespiratory distress. He reports his nausea and vomiting subsided and she is able to eat and keep down. His diarrhea is improving. Reason For Visit: ACUTE PANCREATITIS,INTRACTABLE NAUSEA,VOMITING, Physical Exam Vital Signs: Temp Pulse Resp BP Pulse Ox 97.5 F 63 20 141/66 H 96 02/07/18 07:18 02/07/18 07:18 02/07/18 07:18 02/07/18 07:18 02/07/18 07:18 Intake & Output 02/06/18 02/07/18 02/08/18 06:59 06:59 06:59 Intake Total 2177 4994 710 Output Total 200 Balance 1977 4994 710 Weight 111.5 kg 107.4 kg General appearance: PRESENT: no acute distress, well-developed, well-nourished Head exam: PRESENT: atraumatic, normocephalic Eye exam: PRESENT: conjunctiva pink, EOMI, PERRLA. ABSENT: scleral icterus Ear exam: PRESENT: normal external ear exam Mouth exam: PRESENT: moist, tongue midline Neck exam: ABSENT: carotid bruit, JVD, lymphadenopathy, thyromegaly Respiratory exam: PRESENT: clear to auscultation nan. ABSENT: rales, rhonchi, wheezes Cardiovascular exam: PRESENT: RRR. ABSENT: diastolic murmur, rubs, systolic murmur Pulses: PRESENT: normal dorsalis pedis pul Vascular exam: PRESENT: normal capillary refill GI/Abdominal exam: PRESENT: normal bowel sounds, soft. ABSENT: distended, guarding, mass, organolmegaly, rebound, tenderness Rectal exam: PRESENT: deferred Extremities exam: PRESENT: full ROM. ABSENT: calf tenderness, clubbing, pedal edema Neurological exam: PRESENT: alert, awake, oriented to person, oriented to place , oriented to time, oriented to situation, CN II-XII grossly intact. ABSENT: motor sensory deficit Psychiatric exam: PRESENT: appropriate affect, normal mood. ABSENT: homicidal ideation, suicidal ideation Skin exam: PRESENT: dry, intact, warm. ABSENT: cyanosis, rash Results Laboratory Results: 02/07/18 04:10 02/07/18 04:10 02/06/18 02/07/18 02/07/18 04:42 04:10 04:10 WBC 11.3 H RBC 3.44 L Hgb 10.2 L Hct 30.9 L MCV 90 MCH 29.6 MCHC 33.0 RDW 15.1 H Plt Count 311 Seg Neutrophils % 42.9 Lymphocytes % 27.4 Monocytes % 9.9 Eosinophils % 19.3 H Basophils % 0.5 Absolute Neutrophils 4.8 Absolute Lymphocytes 3.1 Absolute Monocytes 1.1 Absolute Eosinophils 2.2 H Absolute Basophils 0.1 Sodium 147.4 H Potassium 4.6 Chloride 117 H Carbon Dioxide 20 L Anion Gap 10 BUN 25 H Creatinine 1.30 H Est GFR ( Amer) > 60 Est GFR (Non-Af Amer) 56 L Glucose 81 Calcium 9.5 Lipase 100.5 84.6 Impressions: Acute Abdomen Series 02/05/18 08:00 IMPRESSION: NONSPECIFIC BOWEL GAS PATTERN. There are scattered bowel loops with small air fluid levels, peripheral distribution suggesting colonic origin. No distended large or small bowel loops.. Abdomen/Pelvis CT 02/05/18 09:58 IMPRESSION: NO SIGNIFICANT OR ACUTE PROCESS IN THE ABDOMEN OR PELVIS. Abdomen Ultrasound 02/06/18 00:00 IMPRESSION: Limited evaluation with nonvisualization of the pancreas and proximal aorta. Hepatic steatosis. Otherwise unremarkable sonographic evaluation. Assessment & Plan - Diagnosis (1) Acute pancreatitis Qualifiers: Acute pancreatitis complication: unspecified Is this a current diagnosis for this admission?: Yes Plan: Has resolved (2) Intractable nausea vomiting and diarrhea Is this a current diagnosis for this admission?: Yes Plan: Has been improving (3) Gastroenteritis Is this a current diagnosis for this admission?: Yes Plan: Improving (4) ALVARO also CKD due to dehydration Is this a current diagnosis for this admission?: Yes Plan: His kidney function has been improving and his creatinine trended down from 1.97 -1.30. (5) Mild hyperkalemia Is this a current diagnosis for this admission?: Yes Plan: Resolved (6) Coronary artery disease status post sten Is this a current diagnosis for this admission?: Yes Plan: No chest pain. Continue home medications (7) Type 1 diabetes mellitus Is this a current diagnosis for this admission?: Yes Plan: Continue sliding scale and home medication. (8) Hypertension Qualifiers: Hypertension type: essential hypertension Qualified Code(s): I10 - Essential (primary) hypertension Is this a current diagnosis for this admission?: Yes Plan: Continue home medication (9) Hyperlipidemia Qualifiers: Hyperlipidemia type: unspecified Qualified Code(s): E78.5 - Hyperlipidemia , unspecified Is this a current diagnosis for this admission?: Yes Plan: Continue home medication
[2018-02-07] MEDS: INSULIN LISPRO 100 UNIT/ML 3 ML VIAL SUBCUT PRN ×2 (17:30→22:50)
[2018-02-07] MEDS: ACETAMINOPHEN 325 MG TABLET PO PRN (20:38)
[2018-02-07] MEDS: QUETIAPINE FUMARATE 25 MG TABLET PO SCH (21:39)
[2018-02-08] MEDS: CIPROFLOXACIN 400 MG/D5W RTU 400 MG/200 ML RTUPB IV SCH (04:35)
[2018-02-08 04:55] LABS: ABSOLUTE BASOPHILS # (AUTO) 0.1 10^3/uL (0.0-0.2); ABSOLUTE EOSINOPHILS # (AUTO) 2.4 10^3/uL (0.0-0.6); ABSOLUTE LYMPHOCYTES (AUTO) 2.3 10^3/uL (0.5-4.7); ABSOLUTE MONOCYTES (AUTO) 1.2 10^3/uL (0.1-1.4); ABSOLUTE NEUT (AUTO) 6.3 10^3/uL (1.7-8.2); EOSINOPHILS % (AUTO) 19.8 % (0-6); HEMATOCRIT 33.2 % (37.9-51.0); HEMOGLOBIN 10.8 g/dL (13.5-17.0); LYMPHOCYTES % (AUTO) 18.9 % (13-45); MEAN CORPUSCULAR HGB CONC 32.5 g/dL (32.0-36.0); MEAN CORPUSCULAR VOLUME 89 fl (80-97); MONOCYTES % (AUTO) 9.5 % (3-13); PLATELET COUNT 291 10^3/uL (150-450); RED BLOOD COUNT 3.71 10^6/uL (4.35-5.55); RED CELL DISTRIBUTION WIDTH 14.8 % (11.5-14.0); SEGMENTED NEUTROPHILS % (AUTO) 50.8 % (42-78); TOTAL CELLS COUNTED % (AUTO) 100 %; WHITE BLOOD COUNT 12.4 10^3/uL (4.0-10.5)
[2018-02-08 05:05] LABS: ANION GAP 13 (5-19); BLOOD UREA NITROGEN 21 mg/dL (7-20); CALCIUM 9.8 mg/dL (8.4-10.2); CARBON DIOXIDE 22 mmol/L (22-30); CHLORIDE 111 mmol/L (98-107); GLUCOSE 125 mg/dL (75-110); POTASSIUM 4.5 mmol/L (3.6-5.0); SODIUM 145.6 mmol/L (137-145)
[2018-02-08] MEDS: LANSOPRAZOLE 30 MG TAB.RAP.DR PO SCH (05:27)
[2018-02-08] MEDS: METRONIDAZOLE 500 MG/NS RTU 500 MG/100 ML RTUPB IV SCH (05:27)
[2018-02-08] MEDS ORDERED: ONDANSETRON HCL INJ/PF 4 MG/2 ML SDV IV PRN (07:30)
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
[2018-02-08] MEDS: HYDRALAZINE HCL 50 MG TABLET PO SCH (09:34)
[2018-02-08] MEDS: ASPIRIN 81 MG TABLET, ENT COATED PO SCH (09:35)
[2018-02-08] MEDS: AMLODIPINE BESYLATE 5 MG TABLET PO SCH (09:35)
[2018-02-08] MEDS: INSULIN GLARGINE,HUM.REC.ANLOG 1,000 UNIT/10 ML UNIT SUBCUT SCH (09:35)
[2018-02-08 09:48] VITALS: BP 131/69
[2018-02-08] MEDS ORDERED: ATORVASTATIN CALCIUM 20 MG TABLET PO SCH (22:00)
== END 2018-02-08 10:14 | disposition home or self-care (01) | DRG 439 ==
LOC: ER 07:14 → EH 13:14 → 3N 19:40
PROVIDERS: ADMIT Internal Medicine; ATTEND Internal Medicine
DX: K85.90 Acute pancreatitis without necrosis or infection, unspecified (principal); N17.9 Acute kidney failure, unspecified; I13.0 Hypertensive heart and chronic kidney disease with heart failure and stage 1 through stage 4 chronic kidney disease, or unspecified chronic kidney disease; K92.1 Melena; E10.22 Type 1 diabetes mellitus with diabetic chronic kidney disease; I50.9 Heart failure, unspecified; E86.0 Dehydration; N18.3 Chronic kidney disease, stage 3 (moderate); E87.5 Hyperkalemia; I25.10 Atherosclerotic heart disease of native coronary artery without angina pectoris; K52.9 Noninfective gastroenteritis and colitis, unspecified; E78.5 Hyperlipidemia, unspecified; K21.9 Gastro-esophageal reflux disease without esophagitis; I95.9 Hypotension, unspecified; Z79.84 Long term (current) use of oral hypoglycemic drugs; Z79.82 Long term (current) use of aspirin; Z79.4 Long term (current) use of insulin; Z79.899 Other long term (current) drug therapy
CPT/HCPCS: 36415; 74022; 74176; 76705; 80048; 80053; 81001; 82272; 82550; 82553; 82962; 83036; 83605; 83690; 84484; 85025; 86850; 86900; 86901; 87040; 87045; 87205; 87493; 93005; 93010; 96361; 96374; 99291; J0744; J1644; J1815; J2405; J3490; J7030; S0164

== ENCOUNTER 2018-02-25 19:20 | Inpatient (IN) | payer MEDICARE ==
--- NOTE | 2018-02-25 20:11 | ER Document Report ---
ED Medical Screen (RME) - General Chief Complaint: Abnormal Lab Results Stated Complaint: LAB RESULTS ABNORMAL Time Seen by Provider: 02/25/18 20:09 Notes: Patient is being watched by Dr. Hendrickson, local improvement analyst, for GI bleeding. He has been having dark stools for the past 3 weeks. He was getting lab work drawn this afternoon to check his hemoglobin level and was found to have an elevated creatinine and BUN at 31 and 1.78 and his potassium was 6.0. Patient says he is not having any symptoms and feels fine. TRAVEL OUTSIDE OF THE [place] IN LAST 30 DAYS: No - Related Data Allergies/Adverse Reactions: Tetanus Vaccines and Toxoid [Tetanus] Allergy (Mild, Verified 02/25/18 19:22) rash,swelling Penicillins Allergy (Verified 02/25/18 19:22) Past Medical History - Social History Frequency of alcohol use: None Drug Abuse: None - Past Medical History Cardiac Medical History: Reports: Hx Congestive Heart Failure, Hx Hypercholesterolemia, Hx Hypertension Denies: Hx Heart Attack Pulmonary Medical History: Denies: Hx Asthma, Hx COPD Neurological Medical History: Denies: Hx Cerebrovascular Accident, Hx Seizures Endocrine Medical History: Reports: Hx Diabetes Mellitus Type 1, Hx Diabetes Mellitus Type 2 Renal/ Medical History: Denies: Hx Peritoneal Dialysis GI Medical History: Reports: Hx Gastroesophageal Reflux Disease. Denies: Hx Hepatitis, Hx Hiatal Hernia, Hx Ulcer Psychiatric Medical History: Reports: Hx Depression Infectious Medical History: Denies: Hx Hepatitis Past Surgical History: Reports: Hx Appendectomy, Hx Cardiac Surgery - stents 2013. Denies: Hx Open Heart Surgery, Hx Pacemaker - Immunizations History of Influenza Vaccine for 03/2017 - 08/2017 Season: Yes Influenza Administration Date for 03/2017 - 08/2017 Season: 03/22/17 Physical Exam - Vital signs Vitals: Temp Pulse Resp BP Pulse Ox 98.3 F 64 18 120/54 L 100 02/25/18 19:30 02/25/18 19:30 02/25/18 19:30 02/25/18 19:30 02/25/18 19:30 Course - Vital Signs Vital signs: Temp Pulse Resp BP Pulse Ox 98.3 F 64 18 120/54 L 100 02/25/18 19:30 02/25/18 19:30 02/25/18 19:30 02/25/18 19:30 02/25/18 19:30 Doctor's Discharge - Discharge Referrals: NEERAJ KUHN MD [Primary Care Provider] - Follow up as needed
[2018-02-25 20:35] LABS: HEMATOCRIT 32.3 % (37.9-51.0); HEMOGLOBIN 10.5 g/dL (13.5-17.0); MEAN CORPUSCULAR HEMOGLOBIN 29.7 pg (27.0-33.4); MEAN CORPUSCULAR HGB CONC 32.4 g/dL (32.0-36.0); MEAN CORPUSCULAR VOLUME 92 fl (80-97); PLATELET COUNT 392 10^3/uL (150-450); RED BLOOD COUNT 3.52 10^6/uL (4.35-5.55); RED CELL DISTRIBUTION WIDTH 16.2 % (11.5-14.0); WHITE BLOOD COUNT 13.7 10^3/uL (4.0-10.5)
[2018-02-25 20:52] LABS: ALANINE AMINOTRANSFERASE 23 U/L (21-72); ALBUMIN 3.5 g/dL (3.5-5.0); ALKALINE PHOSPHATASE 96 U/L (38-126); ANION GAP 9 (5-19); ASPARTATE AMINO TRANSFERASE 19 U/L (17-59); BILIRUBIN,DIRECT 0.4 mg/dL (0.0-0.4); BILIRUBIN,TOTAL 0.4 mg/dL (0.2-1.3); BLOOD UREA NITROGEN 30 mg/dL (7-20); CALCIUM 9.2 mg/dL (8.4-10.2); CARBON DIOXIDE 17 mmol/L (22-30); CHLORIDE 117 mmol/L (98-107); GLUCOSE 150 mg/dL (75-110); SODIUM 142.5 mmol/L (137-145); TOTAL PROTEIN 6.7 g/dL (6.3-8.2)
[2018-02-25 21:00] LABS: ABSOLUTE LYMPHOCYTES# (MANUAL) 3.8 10^3/uL (0.5-4.7); ABSOLUTE MONOCYTES # (MANUAL) 0.8 10^3/uL (0.1-1.4); ABSOLUTE NEUTROPHILS# (MANUAL) 3.2 10^3/uL (1.7-8.2); BASOPHILS % (MANUAL) 0 % (0-2); EOSINOPHILS % (MANUAL) 43 % (0-6); LYMPHOCYTES % (MANUAL) 28 % (13-45); MONOCYTES % (MANUAL) 6 % (3-13); SEGMENTED NEUTROPHILS % (MAN) 23 % (42-78); TOTAL CELLS COUNTED 100
[2018-02-25 21:01] LABS: PLATELET COMMENT ADEQUATE; POTASSIUM 6.2 mmol/L (3.6-5.0)
[2018-02-25 21:02] LABS: ANISOCYTOSIS 1+
[2018-02-25] MEDS ORDERED: SODIUM POLYSTYRENE SULFONATE 15 GM/60 ML PO ONE (22:22)
[2018-02-25] MEDS ORDERED: INSULIN REG, HUMAN 100 UNIT/ML 3 ML VIAL (PYX) SUBCUT ONE (22:22)
[2018-02-25] MEDS ORDERED: CALCIUM GLUCONATE 1000 MG/10 ML INJ IV ONE (22:22)
[2018-02-25] MEDS ORDERED: DEXTROSE 50%-WATER 25 GM/50 ML DISP.SYRIN IV ONE (22:22)
[2018-02-25] MEDS ORDERED: NORMAL SALINE 1000 ML 1,000 ML IV ONE (22:24)
[2018-02-25] MEDS ORDERED: INSULIN REG, HUMAN 100 UNIT/ML 3 ML VIAL (PYX) IV ONE (23:13)
--- NOTE | 2018-02-25 23:46 | ER Document Report ---
ED General - General Chief Complaint: Abnormal Lab Results Stated Complaint: LAB RESULTS ABNORMAL Time Seen by Provider: 02/25/18 20:09 TRAVEL OUTSIDE OF THE [place] IN LAST 30 DAYS: No - HPI Notes: Patient is a 62-year-old male that presents to the emergency department for chief complaint of hyperkalemia and renal failure. Patient presents the emergency room for abnormal labs. He had blood work drawn as an outpatient which showed renal insufficiency and hyperkalemia. He was referred to the emergency room for medical management. Patient has been managed for a GI bleed as an outpatient and is scheduled for colonoscopy on 03/08. He reports no change in his dark stools. He currently feels asymptomatic. He denies any lightheadedness, nausea, vomiting, diarrhea, palpitations or chest pain. He has no history of renal failure or dialysis in the past. Family History: Reviewed and noncontributory for presenting illness Allergies: Reviewed, see documented allergy list. REVIEW OF SYSTEMS: CONSTITUTIONAL : No fever No chills No diaphoresis No recent illness EENT: No vision changes No congestion No sore throat CARDIOVASCULAR: No chest pain No palpitations No shortness of breath RESPIRATORY: No shortness of breath No cough No difficulty breathing GASTROINTESTINAL: No abdominal pain No nausea No vomiting No diarrhea GENITOURINARY: No dysuria No hematuria No difficulty urinating MUSCULOSKELETAL: No back pain No leg pain No arm pain SKIN: No rashes No lesions LYMPHATIC: No swollen, enlarged glands. NEUROLOGICAL: No lightheadedness No headache No weakness No paresthesias PSYCHIATRIC: No anxiety No depression PHYSICAL EXAMINATION: Vital signs reviewed, nursing noted reviewed. GENERAL: Well-appearing, well-nourished and in no acute distress. HEAD: Atraumatic, normocephalic. EYES: Eyes appear normal, extraocular movements intact, sclera anicteric, conjunctiva are normal. ENT: nares patent, oropharynx clear without exudates. Moist mucous membranes. NECK: Normal range of motion, supple without lymphadenopathy LUNGS: Breath sounds diminished to auscultation bilaterally, equal. No wheezes rales or rhonchi. Mild accessory muscle use HEART: Regular rate and rhythm without murmurs ABDOMEN: Soft, nontender, normoactive bowel sounds. No rebound, guarding, or rigidity. No masses appreciated. EXTREMITIES: Nontender, good range of motion, no pitting or edema. NEUROLOGICAL: No focal neurological deficits. Moves all extremities spontaneously Motor and sensory grossly intact on exam. PSYCH: Normal mood, normal affect. SKIN: Warm, Dry, normal turgor, no rashes or lesions noted on exposed skin - Related Data Allergies/Adverse Reactions: Tetanus Vaccines and Toxoid [Tetanus] Allergy (Mild, Verified 02/25/18 19:22) rash,swelling Penicillins Allergy (Verified 02/25/18 19:22) Past Medical History - Social History Smoking Status: Never Smoker Frequency of alcohol use: None Drug Abuse: None Family History: Reviewed & Not Pertinent, CAD, DM, Other - Gallbladder disease in mother and brother Patient has suicidal ideation: No Patient has homicidal ideation: No - Past Medical History Cardiac Medical History: Reports: Hx Congestive Heart Failure, Hx Hypercholesterolemia, Hx Hypertension Denies: Hx Heart Attack Pulmonary Medical History: Denies: Hx Asthma, Hx COPD Neurological Medical History: Denies: Hx Cerebrovascular Accident, Hx Seizures Endocrine Medical History: Reports: Hx Diabetes Mellitus Type 1, Hx Diabetes Mellitus Type 2 Renal/ Medical History: Denies: Hx Peritoneal Dialysis GI Medical History: Reports: Hx Gastroesophageal Reflux Disease. Denies: Hx Hepatitis, Hx Hiatal Hernia, Hx Ulcer Psychiatric Medical History: Reports: Hx Depression Infectious Medical History: Denies: Hx Hepatitis Past Surgical History: Reports: Hx Appendectomy, Hx Cardiac Surgery - stents 2013. Denies: Hx Open Heart Surgery, Hx Pacemaker Review of Systems - Review of Systems Notes: Dictated Physical Exam - Vital signs Vitals: Temp Pulse Resp BP Pulse Ox 98.3 F 64 18 120/54 L 100 02/25/18 19:30 02/25/18 19:30 02/25/18 19:30 02/25/18 19:30 02/25/18 19:30 - Notes Notes: Dictated Course - Re-evaluation Re-evalutation: 02/25/18 23:42 Patient seen and examined vital signs reviewed. Laboratory data and imaging were ordered as appropriate for the patient's presenting symptoms and complaint, with consideration of any critical or life threatening conditions that may be associated with their obtained history and exam as noted above. Patient was treated with calcium, insulin, D50, Kayexalate, normal saline Results were reviewed when available and demonstrated hyperkalemia and renal insufficiency The patient was re-evaluated and was unchanged Evaluation was most consistent with hyperkalemia Results were discussed with the patient at this point after careful consideration I feel that that patient should be admitted to the hospital. This was discussed with the patient that it is in the best interest for their care to be admitted for further evaluation and management. Patient agreed with this plan of care. A call was placed to the admitted physician, Dr. Sharp who requests repeat potassium 1 hour after initial treatment. Repeat potassium has decreased to 5.4. Patient will be admitted for telemetry monitoring and further evaluation of his renal insufficiency. Note is created using voice recognition software and may contain spelling, syntax or grammatical errors. 02/26/18 01:21 - Vital Signs Vital signs: Temp Pulse Resp BP Pulse Ox 98.3 F 64 26 H 146/67 H 98 02/25/18 19:30 02/25/18 19:30 02/25/18 23:01 02/25/18 23:01 02/25/18 23:01 - Laboratory Result Diagrams: 02/25/18 20:07 02/26/18 00:43 Laboratory results interpreted by me: 02/25/18 02/25/18 02/26/18 20:07 20:07 00:43 WBC 13.7 H RBC 3.52 L Hgb 10.5 L Hct 32.3 L RDW 16.2 H Seg Neuts % (Manual) 23 L Eosinophils % (Manual) 43 H Absolute Eos (Manual) 5.9 H Potassium 6.2 H* 5.4 H Chloride 117 H Carbon Dioxide 17 L BUN 30 H Creatinine 1.74 H Est GFR ( Amer) 48 L Est GFR (Non-Af Amer) 40 L Glucose 150 H Discharge - Discharge Clinical Impression: Hyperkalemia, ALVARO (acute kidney injury) Condition: Stable Disposition: ADMITTED INPATIENT Admitting Provider: Hospitalist Unit Admitted: Telemetry Referrals: NEERAJ KUHN MD [Primary Care Provider] - Follow up as needed
[2018-02-26] MEDS ORDERED: TEMAZEPAM 7.5 MG CAPSULE PO PRN (03:26)
[2018-02-26] MEDS ORDERED: MAG HYDROX/AL HYDROX/SIMETH SUSP 30 ML UDCUP PO PRN (03:26)
[2018-02-26] MEDS ORDERED: PROMETHAZINE HCL INJ 25 MG/1 ML VIAL IV PRN (03:26)
[2018-02-26] MEDS ORDERED: ACETAMINOPHEN 325 MG TABLET PO PRN (03:26)
[2018-02-26] MEDS ORDERED: NORMAL SALINE 1000 ML 1,000 ML IV PRN (03:26)
[2018-02-26] MEDS ORDERED: GLUCAGON,HUMAN RECOMB 1 MG INJ IM PRN (03:32)
[2018-02-26] MEDS ORDERED: DEXTROSE 50%-WATER 25 GM/50 ML DISP.SYRIN IV PRN ×2 (03:32)
[2018-02-26] MEDS ORDERED: INSULIN LISPRO 100 UNIT/ML 3 ML VIAL SUBCUT PRN (03:32)
[2018-02-26] MEDS ORDERED: DEXTROSE 40% GEL 15 GM TUBE PO PRN ×2 (03:32)
[2018-02-26] MEDS ORDERED: SODIUM POLYSTYRENE SULFONATE 15 GM/60 ML PO ONE (04:00)
--- NOTE | 2018-02-26 04:42 | PDOC H&P ---
History of Present Illness Admission Date/PCP: 02/26/18 01:31 NEERAJ KUHN MD Patient complains of: Abnormal labs History of Present Illness: MARCOS JOSHI is a 62 year old male who was at his GI doctor today and they did blood work, patient was called and ask to come to the emergency department as he had hyperkalemia and acute renal failure. Potassium 6, BUN 30 and creatinine 1.74. Patient tells me that he has been working outside for several hours lately. He states that he has been drinking fluids. Patient tells me that he is having melanotic stools for the last month, 2-3 bowel movements a day, sometimes associated with abdominal pain, patient has been taking Pepto-Bismol, last dose 2 days ago and Imodium. Patient is scheduled for colonoscopy 02/1704 EGD on 03/18. H/H stable In the ED hyperkalemia cocktail was given and repeated potassium was 5.4, we decided to keep the patient for IV hydration and close monitoring of his potassium. Patient is asymptomatic, denies dizziness, lightheadedness, nausea, vomiting, diarrhea, palpitations pain. Patient has history of acute renal failure in the past, discharge on02/08 secondary to dehydration secondary to acute pancreatitis. Past Medical History Cardiac Medical History: Reports: Congestive Heart Failure, Hyperlipidema, Hypertension Denies: Myocardial Infarction Pulmonary Medical History: Denies: Asthma, Chronic Obstructive Pulmonary Disease (COPD) Neurological Medical History: Denies: Seizures Endocrine Medical History: Reports: Diabetes Mellitus Type 1, Diabetes Mellitus Type 2 GI Medical History: Reports: Gastroesophageal Reflux Disease Denies: Hepatitis, Hiatal Hernia Psychiatric Medical History: Reports: Depression Hematology: Denies: Anemia, Sickle Cell Disease Past Surgical History Past Surgical History: Reports: Appendectomy Denies: Pacemaker Social History Smoking Status: Never Smoker Frequency of Alcohol Use: None Hx Recreational Drug Use: No Drugs: None Hx Prescription Drug Abuse: No Family History Family History: Reviewed & Not Pertinent, CAD, DM, Other - Gallbladder disease in mother and brother Parental Family History Reviewed: No Children Family History Reviewed: NA Sibling(s) Family History Reviewed.: NA Medication/Allergy Home Medications: Amlodipine Besylate [Norvasc 5 mg Tablet] 5 mg PO DAILY 12/07/17 Aspirin [Adult Low Dose Aspirin EC] 81 mg PO DAILY 12/07/17 Atorvastatin Calcium [Lipitor 20 mg Tablet] 20 mg PO DAILY 12/07/17 Hydralazine HCl 100 mg PO Q12 12/07/17 Isosorbide Mononitrate [Imdur 60 mg Tablet.er] 60 mg PO DAILY 12/07/17 Labetalol HCl [Trandate] 300 mg PO Q12 12/07/17 Lisinopril [Zestril] 40 mg PO DAILY 12/07/17 Metformin HCl [Glucophage] 1,000 mg PO BID 12/07/17 Omeprazole 40 mg PO DAILY 12/07/17 Timolol Maleate [Timoptic 0.5% Oph Soln 5 ml] 1 drop OU DAILY 01/18/18 Quetiapine Fumarate [Seroquel Xr] 50 mg PO DAILY 30 Days #30 tab.er.24h Insulin Glargine,Hum.rec.anlog [Lantus Insulin 100 Unit/mL] 50 unit SUBCUT BID 02/05/18 Ciprofloxacin HCl [Cipro 500 mg Tablet] 500 mg PO BID #10 tablet 02/08/18 Metronidazole 500 mg PO Q8H #15 tablet 02/08/18 Allergies/Adverse Reactions: Tetanus Vaccines and Toxoid [Tetanus] Allergy (Mild, Verified 02/25/18 19:22) rash,swelling Penicillins Allergy (Verified 02/25/18 19:22) Review of Systems Review of Systems: As outlined in the HPI, others negative Physical Exam Vital Signs: Temp Pulse Resp BP Pulse Ox 98.3 F 64 26 H 146/67 H 98 02/25/18 19:30 02/25/18 19:30 02/25/18 23:01 02/25/18 23:01 02/25/18 23:01 Additional comments: General appearance: Well-developed, well-nourished, alert and cooperative, and appears to be in no acute distress Head: Normocephalic Eyes: PEERL, EOMI, vision is grossly intact. Ears: External auditory canal and tympanic membranes clear, hearing grossly intact. Nose: No nasal discharge. Throat: Oral cavity and pharynx normal. No inflammation, swelling, exudate or lesions. Neck: Neck supple, nontender without lymphadenopathy, masses or thyromegaly. Cardiac: Normal S1 and S2. No S3, S4 or murmurs. Rhythm is regular. There is no peripheral edema, cyanosis or pallor. Extremities are warm and well perfused. Capillary refill is less than 2 seconds. No carotid bruits. Lungs: Clear to auscultation and percussion without rales, rhonchi, wheezing or diminished breath sounds. Not using accessory muscles. Abdomen: Positive bowel sounds. Soft. Nondistended, nontender. No guarding or rebound. No masses. No hepatosplenomegaly Extremities: No significant deformity or joint abnormality. No edema. Peripheral pulses intact. No varicosities. Neurological: Cranial nerves II through XII grossly intact. Strength and sensation symmetric and intact throughout. Reflexes 2+ throughout. Skin: Skin normal color, texture and turgor with excoriations and lower extremities, no eruptions, warm and dry. Psychiatric: The mental examination revealed the patient was oriented to person , place, and time. The patient was able to demonstrate good judgment on recent , without hallucinations, abnormal affect or abnormal behaviors. Results Laboratory Results: 02/25/18 02/25/18 02/26/18 20:07 20:07 00:43 WBC 13.7 H RBC 3.52 L Hgb 10.5 L Hct 32.3 L MCV 92 MCH 29.7 MCHC 32.4 RDW 16.2 H Plt Count 392 Seg Neuts % (Manual) 23 L Lymphocytes % (Manual) 28 Monocytes % (Manual) 6 Eosinophils % (Manual) 43 H Abs Neuts (Manual) 3.2 Abs Lymphs (Manual) 3.8 Abs Monocytes (Manual) 0.8 Absolute Eos (Manual) 5.9 H Platelet Comment ADEQUATE Anisocytosis 1+ Sodium 142.5 Potassium 6.2 H* 5.4 H Chloride 117 H Carbon Dioxide 17 L Anion Gap 9 BUN 30 H Creatinine 1.74 H Est GFR ( Amer) 48 L Est GFR (Non-Af Amer) 40 L Glucose 150 H Calcium 9.2 Total Bilirubin 0.4 Direct Bilirubin 0.4 AST 19 ALT 23 Alkaline Phosphatase 96 Total Protein 6.7 Albumin 3.5 Assessment & Plan - Diagnosis (1) ALVARO (acute kidney injury) Is this a current diagnosis for this admission?: Yes Plan: Patient comes after being called for abnormal labs, BUN 30 and creatinine 1.74 in the setting of CKD3. We are given to the patient IV fluids. On hold lisinopril and metformin. Place order for urinalysis. Reassess renal function with morning labs. (2) Hyperkalemia Is this a current diagnosis for this admission?: Yes Plan: Potassium 6.2, given 1 g of calcium gluconate, insulin regular 10 units IV, D50 and 30 g of p.o. Kayexalate. Patient with several bowel movements. Repeat a potassium 5.4. Ordered 15 g of p.o. Kayexalate. Repeat BMP in a.m. Continue IV fluids. (3) Diabetes mellitus type 2 in obese Is this a current diagnosis for this admission?: Yes Plan: Accu-Cheks q. before meals and at bedtime. Insulin lispro sliding scale and hypoglycemia protocol. Metformin on hold. Continue insulin glargine. (4) Diabetic neuropathy Qualifiers: Diabetes mellitus type: type 2 Is this a current diagnosis for this admission?: Yes (5) Coronary artery disease Qualifiers: Coronary Disease-Associated Artery/Lesion type: unspecified vessel or lesion type Lummi vs. transplanted heart: curyung heart Associated angina: without angina Qualified Code(s): I25.10 - Atherosclerotic heart disease of [place] coronary artery without angina pectoris Is this a current diagnosis for this admission?: Yes Plan: Has no cardiac symptomatology. Continue aspirin, statins, isosorbide, beta- sonal. (6) Hypertension Qualifiers: Hypertension type: essential hypertension Qualified Code(s): I10 - Essential (primary) hypertension Is this a current diagnosis for this admission?: Yes Plan: Continue home antihypertensive medications with exception of lisinopril. (7) GI bleeding Is this a current diagnosis for this admission?: Yes Plan: Patient with melanotic stools for the last month, follows with GI, hemoglobin and hematocrit are stable, patient already is scheduled for EGD and colonoscopy this month. No active intervention, the patient does not need any blood transfusions. - Time Time Spent: 30 to 50 Minutes - Inpatient Certification Based on my medical assessment, after consideration of the patient's comorbidities, presenting symptoms, or acuity I expect that the services needed warrant INPATIENT care.: Yes I certify that my determination is in accordance with my understanding of Medicare's requirements for reasonable and necessary INPATIENT services [42 CFR 412.3e].: Yes Medical Necessity: Risk of Complication if Not Cared For in Hospital
[2018-02-26] MEDS ORDERED: HEPARIN SOD (PORCINE) 5,000 UNIT/ML 1 ML SYRINGE SUBCUT SCH (06:00)
--- NOTE | 2018-02-26 07:34 | EKG REPORT ---
SEVERITY:- NORMAL ECG - SINUS RHYTHM : Confirmed by: Bo Saunders MD 26-Feb-2018 07:33:55
[2018-02-26 07:39] LABS: HEMATOCRIT 30.2 % (37.9-51.0); HEMOGLOBIN 9.8 g/dL (13.5-17.0); MEAN CORPUSCULAR HEMOGLOBIN 29.5 pg (27.0-33.4); MEAN CORPUSCULAR HGB CONC 32.3 g/dL (32.0-36.0); MEAN CORPUSCULAR VOLUME 91 fl (80-97); PLATELET COUNT 370 10^3/uL (150-450); RED BLOOD COUNT 3.31 10^6/uL (4.35-5.55); RED CELL DISTRIBUTION WIDTH 16.2 % (11.5-14.0); WHITE BLOOD COUNT 12.3 10^3/uL (4.0-10.5)
[2018-02-26 07:57] LABS: ANION GAP 9 (5-19); BLOOD UREA NITROGEN 26 mg/dL (7-20); CALCIUM 8.8 mg/dL (8.4-10.2); CARBON DIOXIDE 17 mmol/L (22-30); CHLORIDE 118 mmol/L (98-107); GLUCOSE 107 mg/dL (75-110); POTASSIUM 5.3 mmol/L (3.6-5.0); SODIUM 143.7 mmol/L (137-145)
[2018-02-26 08:14] VITALS: BP 157/73
--- NOTE | 2018-02-26 14:09 | PDOC DISCHARGE SUMMARY ---
General - Admit/Disc Date/PCP Admission Date/Primary Care Provider: 02/26/18 01:31 NEERAJ KUHN MD Discharge Date: 02/26/18 - Additional Information Home Medications: Amlodipine Besylate [Norvasc 5 mg Tablet] 5 mg PO DAILY 02/26/18 Aspirin [Ecotrin 81 mg EC Tablet] 81 mg PO DAILY 02/26/18 Atorvastatin Calcium [Lipitor 20 mg Tablet] 20 mg PO QHS 02/26/18 Hydralazine HCl 100 mg PO Q12 02/26/18 Insulin Glargine,Hum.rec.anlog [Lantus Solostar] 50 unit SQ Q12 02/26/18 Isosorbide Mononitrate [Imdur 60 mg Tablet.er] 60 mg PO DAILY 02/26/18 Labetalol HCl [Trandate] 300 mg PO Q12 02/26/18 Lisinopril [Prinivil 40 mg Tablet] 40 mg PO DAILY 02/26/18 Metformin HCl [Glucophage] 1,000 mg PO BID 02/26/18 Omeprazole 40 mg PO DAILY 02/26/18 Quetiapine Fumarate [Seroquel] 50 mg PO QHS 02/26/18 Timolol Maleate [Timoptic 0.5% Oph Soln 5 ml] 1 drop OU DAILY 02/26/18 History of Present Illness History of Present Illness: MARCOS JOSHI is a 62 year old male who was at his GI doctor today and they did blood work, patient was called and ask to come to the emergency department as he had hyperkalemia and acute renal failure. Potassium 6, BUN 30 and creatinine 1.74. Patient tells me that he has been working outside for several hours lately. He states that he has been drinking fluids. Patient tells me that he is having melanotic stools for the last month, 2-3 bowel movements a day, sometimes associated with abdominal pain, patient has been taking Pepto-Bismol, last dose 2 days ago and Imodium. Patient is scheduled for colonoscopy 02/1704 EGD on 03/18. H/H stable In the ED hyperkalemia cocktail was given and repeated potassium was 5.4, we decided to keep the patient for IV hydration and close monitoring of his potassium. Patient is asymptomatic, denies dizziness, lightheadedness, nausea, vomiting, diarrhea, palpitations pain. Patient has history of acute renal failure in the past, discharge secondary to dehydration secondary to acute pancreatitis. Hospital Course Hospital Course: The patient was admitted, but was held in the ED due to lack of medical beds. He was given IV fluids and his electrolytes were monitored. This morning before I had a chance to see him, the patient stated his intent to leave against medical advice and left. I was notified by nursing. Physical Exam Vital Signs: Temp Pulse Resp BP Pulse Ox 97.9 F 64 21 H 157/73 H 90 L 02/26/18 08:13 02/25/18 19:30 02/26/18 08:01 02/26/18 08:01 02/26/18 08:01 Additional comments: The patient left AMA before I could see him. Results Laboratory Results: 02/26/18 07:12 02/26/18 07:12 02/26/18 02/26/18 07:12 07:12 WBC 12.3 H RBC 3.31 L Hgb 9.8 L Hct 30.2 L MCV 91 MCH 29.5 MCHC 32.3 RDW 16.2 H Plt Count 370 Sodium 143.7 Potassium 5.3 H Chloride 118 H Carbon Dioxide 17 L Anion Gap 9 BUN 26 H Creatinine 1.41 H Est GFR ( Amer) > 60 Est GFR (Non-Af Amer) 51 L Glucose 107 Calcium 8.8 Qualifiers - * PATIENT BEING DISCHARGED WITH ANY OF THE FOLLOWING DIAGNOSIS: No
== END 2018-02-26 14:09 | disposition left against medical advice (07) | DRG 683 ==
LOC: ER 19:20 → EH 02-26 01:31
PROVIDERS: ADMIT Internal Medicine; ATTEND Internal Medicine
DX: N17.9 Acute kidney failure, unspecified (principal); I50.20 Unspecified systolic (congestive) heart failure; I13.0 Hypertensive heart and chronic kidney disease with heart failure and stage 1 through stage 4 chronic kidney disease, or unspecified chronic kidney disease; E87.5 Hyperkalemia; E78.5 Hyperlipidemia, unspecified; K21.9 Gastro-esophageal reflux disease without esophagitis; E11.22 Type 2 diabetes mellitus with diabetic chronic kidney disease; N18.3 Chronic kidney disease, stage 3 (moderate); I25.10 Atherosclerotic heart disease of native coronary artery without angina pectoris; E11.40 Type 2 diabetes mellitus with diabetic neuropathy, unspecified; F32.9 Major depressive disorder, single episode, unspecified; Z82.49 Family history of ischemic heart disease and other diseases of the circulatory system; Z83.3 Family history of diabetes mellitus; Z79.82 Long term (current) use of aspirin; Z79.4 Long term (current) use of insulin; Z79.899 Other long term (current) drug therapy; Z88.7 Allergy status to serum and vaccine; Z88.0 Allergy status to penicillin
CPT/HCPCS: 36415; 80048; 80053; 82962; 84132; 85025; 85027; 93005; 93010; 96361; 96365; 96375; 99284; J0610; J1815; J3490; J7030

== ENCOUNTER → 2018-04-19 | Outpatient (CLI) | payer MEDICARE ==
[2018-04-19 14:39] LABS: ABSOLUTE EOSINOPHILS # (AUTO) 0.9 10^3/uL (0.0-0.6); ABSOLUTE LYMPHOCYTES (AUTO) 2.6 10^3/uL (0.5-4.7); ABSOLUTE MONOCYTES (AUTO) 0.9 10^3/uL (0.1-1.4); ABSOLUTE NEUT (AUTO) 7.9 10^3/uL (1.7-8.2); BASOPHILS % (AUTO) 0.4 % (0-2); EOSINOPHILS % (AUTO) 7.1 % (0-6); HEMATOCRIT 31.6 % (37.9-51.0); HEMOGLOBIN 10.4 g/dL (13.5-17.0); MEAN CORPUSCULAR HEMOGLOBIN 28.7 pg (27.0-33.4); MEAN CORPUSCULAR HGB CONC 32.9 g/dL (32.0-36.0); MEAN CORPUSCULAR VOLUME 87 fl (80-97); MONOCYTES % (AUTO) 7.3 % (3-13); PLATELET COUNT 541 10^3/uL (150-450); RED BLOOD COUNT 3.63 10^6/uL (4.35-5.55); RED CELL DISTRIBUTION WIDTH 15.4 % (11.5-14.0); SEGMENTED NEUTROPHILS % (AUTO) 64.2 % (42-78); TOTAL CELLS COUNTED % (AUTO) 100 %; WHITE BLOOD COUNT 12.3 10^3/uL (4.0-10.5)
[2018-04-19 15:03] LABS: ALANINE AMINOTRANSFERASE 17 U/L (21-72); ALBUMIN 3.6 g/dL (3.5-5.0); ALKALINE PHOSPHATASE 84 U/L (38-126); ANION GAP 11 (5-19); ASPARTATE AMINO TRANSFERASE 20 U/L (17-59); BILIRUBIN,DIRECT 0.2 mg/dL (0.0-0.4); BILIRUBIN,TOTAL 0.2 mg/dL (0.2-1.3); BLOOD UREA NITROGEN 20 mg/dL (7-20); C-REACTIVE PROTEIN 18.8 mg/L (<10.0); CALCIUM 9.1 mg/dL (8.4-10.2); CARBON DIOXIDE 27 mmol/L (22-30); CHLORIDE 104 mmol/L (98-107); GLUCOSE 211 mg/dL (75-110); POTASSIUM 5.5 mmol/L (3.6-5.0); SODIUM 142.3 mmol/L (137-145); TOTAL PROTEIN 7.1 g/dL (6.3-8.2)
[2018-04-19 15:30] LABS: ERYTHROCYTE SEDIMENTATION RATE 107 mm/hr (0-20)
== END ==
LOC: WC 13:57
PROVIDERS: ATTEND Preventive Medicine Undersea and Hyperbaric Medicine
DX: E11.621 Type 2 diabetes mellitus with foot ulcer (principal); L97.524 Non-pressure chronic ulcer of other part of left foot with necrosis of bone
CPT/HCPCS: 36415; 80053; 83036; 85025; 85652; 86140

== ENCOUNTER → 2018-04-20 | Outpatient (CLI) | payer MEDICARE ==
--- NOTE | 2018-04-21 13:15 | XCELERA REPORT ---
[address] [address] Lower Extremity Arterial Evaluation Name: MARCOS JOSHI Age: 63 yrs Gender: Male : 1955 Patient Status: Outpatient Patient Location: Study Date: 04/20/2018 10:11 AM Procedure: A color flow and duplex scan of the lower extremity arteries was performed bilaterally with velocity and waveform anaylsis. Ankle brachial indicies performed. Reason For Study: ULCER Ordering Physician: PHILLIP HARDY Performed By: Juan Ramon Macias Measurements and Calculations Right Left PROCESS CAMERA OPERATOR PSV 151.9 122.2 cm/sec Prox PFA PSV -82.5 -78.6 cm/sec Prox Pop A PSV 79.6 94.8 cm/sec Dist GARRETT PSV 77.6 111.4 cm/sec Dist PLASTICS HEAT WELDER PSV 102.6 176.8 cm/sec Moreno Pedis PSV -140.4 -132.6cm/sec Right Side Arterial Evaluation Normal velocity and triphasic waveforms noted from the Common Femoral artery to the infrageniculate vessels. 0 % stenosis noted. Ankle Brachial index not obtainable, non compressible . Left Side Arterial Evaluation Normal velocity and triphasic waveforms noted from the Common Femoral artery to the infrageniculate vessels. 0 % stenosis noted. Ankle Brachial index not obtainable, non compressible . Interpretation Summary No hemodynamically significant lesions in the bilateral lower extremities, on duplex imaging, at rest. ELLIE shows non compressibility. : PHILLIP HARDY > Jose Pope
== END ==
LOC: SP 09:48
PROVIDERS: ATTEND Preventive Medicine Undersea and Hyperbaric Medicine
DX: L97.524 Non-pressure chronic ulcer of other part of left foot with necrosis of bone (principal)
CPT/HCPCS: 93925